=== PATIENT | female | born 1985 | race African-American/Black ===

== ENCOUNTER 2017-03-11 12:23 | Emergency (ER) | payer MEDICAID | END 2017-03-11 14:27 | disposition home or self-care (01) | LOC: D.ER 12:23 | DX: G89.18 Other acute postprocedural pain (principal); R10.9 Unspecified abdominal pain; G40.909 Epilepsy, unspecified, not intractable, without status epilepticus; E11.9 Type 2 diabetes mellitus without complications; Z79.4 Long term (current) use of insulin; F90.9 Attention-deficit hyperactivity disorder, unspecified type ==

== ENCOUNTER 2017-03-30 13:41 | Emergency (ER) | payer SELFPAY | END 2017-03-30 16:43 | disposition home or self-care (01) | LOC: D.ER 13:41 | DX: Z43.3 Encounter for attention to colostomy (principal); G89.29 Other chronic pain; F17.200 Nicotine dependence, unspecified, uncomplicated ==

== ENCOUNTER 2017-04-07 13:26 | Emergency (ER) | payer MEDICAID | END 2017-04-07 16:20 | disposition home or self-care (01) | LOC: D.ER 13:26 | DX: Z76.0 Encounter for issue of repeat prescription (principal); Z93.3 Colostomy status ==

== ENCOUNTER 2017-04-27 13:35 | Emergency (ER) | payer MEDICAID ==
[2017-06-11] MEDS ORDERED: INDERAL10 MG PO (11:08)
[2017-06-23 13:26] VITALS: BMI 14.9
== END 2017-04-27 16:50 | disposition home or self-care (01) ==
LOC: D.ER 13:35
DX: K94.09 Other complications of colostomy (principal); Z98.890 Other specified postprocedural states

== ENCOUNTER 2017-05-31 23:08 | Emergency (ER) | payer MEDICAID ==
[2017-06-01 00:33] LABS: HEMATOCRIT 34.7 % (36.0-48.0); HEMOGLOBIN 11.5 g/dL (12-16); LYMPHOCYTES 18.5 % (15-50); MCH 25.6 pg (26.0-34.0); MCHC 33.1 g/dL (31.0-37.0); MCV 77.1 fL (80.0-100.0); MEAN PLATELET VOLUME 9.4 fL (7.4-10.4); NEUTROPHILS 75.3 % (40-80); PLATELET COUNT 326 10x3/uL (130-400); RDW 16.7 % (11.5-14.5); WBC 8.7 10x3/uL (4.8-10.8)
[2017-06-01 00:48] LABS: ALBUMIN 3.3 g/dL (3.4-5.0); ALKALINE PHOSPHATASE 125 U/L (46-116); ALT (SGPT) 47 U/L (10-68); CALC OSMOLALITY 285 mosm/kg (275-300); CALCIUM 9.3 mg/dL (8.5-10.1); CARBON DIOXIDE 17.6 mmol/L (21.0-32.0); CHLORIDE - SERUM 101 mmol/L (98-107); CREATININE - SERUM 0.9 mg/dL (0.6-1.3); LIPASE 239 U/L (73-393); POTASSIUM - SERUM 3.9 mmol/L (3.5-5.1); PROTEIN - SERUM 7.6 g/dL (6.4-8.2); SODIUM 132 mmol/L (136-145); UREA NITROGEN 17 mg/dL (7-18); eGFR NON AFRICAN AMERICAN 78 mL/min (90-120)
[2017-06-01 00:51] LABS: GLUCOSE 440 mg/dL (74-106)
[2017-06-01 02:35] LABS: APPEARANCE CLEAR (CLEAR); BILIRUBIN NEGATIVE (NEGATIVE); COLOR STRAW (YELLOW); GLUCOSE 1000 mg/dL (NEGATIVE); KETONE NEGATIVE (NEGATIVE); NITRITE NEGATIVE (NEGATIVE); PROTEIN TRACE mg/dL (NEGATIVE); UROBILINOGEN NORMAL (NORMAL)
[2017-06-02] MEDS ORDERED: HYDROCODON-ACE1 EAC9 PO (23:39)
[2017-06-02] MEDS ORDERED: LEVEMIR100 U/M1 SC (23:41)
[2017-06-02] MEDS ORDERED: HUMALOG 30100 UNITS/ SC (23:42)
[2017-06-11] MEDS ORDERED: INDERAL10 MG PO (11:08)
[2017-06-23 13:26] VITALS: BMI 14.9
== END 2017-06-01 08:25 | disposition home or self-care (01) ==
LOC: D.ER 23:08
PROVIDERS: Emergency Medicine
DX: R10.9 Unspecified abdominal pain (principal); E11.65 Type 2 diabetes mellitus with hyperglycemia; Z79.4 Long term (current) use of insulin; K31.84 Gastroparesis; R33.9 Retention of urine, unspecified; F17.200 Nicotine dependence, unspecified, uncomplicated

== ENCOUNTER 2017-06-02 19:20 | Inpatient (IN) | payer MEDICAID ==
[~2017-06-02] VITALS: Ht 160 cm; Wt 46.2 kg
[2017-06-02 20:11] LABS: BASOPHILS 0.2 % (0-2); EOSINOPHILS 0.4 % (0-7); HEMATOCRIT 38.4 % (36.0-48.0); HEMOGLOBIN 12.9 g/dL (12-16); IMMATURE GRANULOCYTES 0.1 % (0-5); LYMPHOCYTES 39.7 % (15-50); MCH 26.3 pg (26.0-34.0); MCHC 33.6 g/dL (31.0-37.0); MCV 78.4 fL (80.0-100.0); MEAN PLATELET VOLUME 9.8 fL (7.4-10.4); MONOCYTES 5.6 % (2-11); PLATELET COUNT 330 10x3/uL (130-400); RDW 16.4 % (11.5-14.5); WBC 8.2 10x3/uL (4.8-10.8)
[2017-06-02 20:28] LABS: ALBUMIN 3.3 g/dL (3.4-5.0); ALKALINE PHOSPHATASE 114 U/L (46-116); BILIRUBIN - TOTAL 0.37 mg/dL (0.2-1.3); CHLORIDE - SERUM 100 mmol/L (98-107); CREATININE - SERUM 0.7 mg/dL (0.6-1.3); PROTEIN - SERUM 7.8 g/dL (6.4-8.2); SODIUM 136 mmol/L (136-145); eGFR NON AFRICAN AMERICAN > 90 mL/min (90-120)
[2017-06-02 20:31] LABS: ALT (SGPT) 29 U/L (10-68); CALC OSMOLALITY 278 mosm/kg (275-300); CARBON DIOXIDE 22.4 mmol/L (21.0-32.0); GLUCOSE 250 mg/dL (74-106); POTASSIUM - SERUM 3.1 mmol/L (3.5-5.1); UREA NITROGEN 10 mg/dL (7-18)
[2017-06-02 21:01] LABS: AMYLASE - SERUM 52 U/L (25-115); LIPASE 141 U/L (73-393)
[2017-06-02 21:04] LABS: APPEARANCE HAZY (CLEAR); BACTERIA MANY /hpf (NONE SEEN); BILIRUBIN NEGATIVE (NEGATIVE); COLOR YELLOW (YELLOW); EPITHELIAL CELLS 0-5 /hpf (0-5); GLUCOSE 100 mg/dL (NEGATIVE); KETONE MODERATE mg/dL (NEGATIVE); NITRITE NEGATIVE (NEGATIVE); PROTEIN 1+ mg/dL (NEGATIVE); SPECIFIC GRAVITY 1.015 (1.005-1.020); UDS - AMPHET NEGATIVE QUAL (NEGATIVE); UDS - BARB NEGATIVE QUAL (NEGATIVE); UDS - BENZO NEGATIVE QUAL (NEGATIVE); UDS - COCAINE POSITIVE QUAL (NEGATIVE); UDS - OPIATE NEGATIVE QUAL (NEGATIVE); UDS - PCP NEGATIVE QUAL (NEGATIVE); UDS - THC NEGATIVE QUAL (NEGATIVE); UROBILINOGEN NORMAL (NORMAL); WHITE CELLS - URINE >50 /hpf (0-5)
[2017-06-02] MEDS ORDERED: HYDROCODON-ACE1 EAC9 PO (23:39)
[2017-06-02] MEDS ORDERED: LEVEMIR100 U/M1 SC (23:41)
[2017-06-02] MEDS ORDERED: HUMALOG 30100 UNITS/ SC (23:42)
--- NOTE | 2017-06-02 23:44 | NUR ---
PT ARRIVED TO ROOM, C/O PAIN IN HER STOMACH. STATES SHE WAS SUPPOSED TO RECEIVE SOMETHING FROM ER BUT DID NOT RECEIVE IT. PT IS AAO. HAS NO S/S OF DISTRESS. BED LOW AND CALL LIGHT IN REACH. WILL CPOC
--- NOTE | 2017-06-03 02:12 | NUR ---
PT ASKS FOR A SODA AND A SANDWINCH. PT STILL C/O STOMACH PAIN. NEW IV PLACED IN LEFT WRIST. 22G. PT DENIES ANY OTHER NEEDS. NO S/S OF DISTRESS. BED LOW AND CALL LIGHT IN REACH. WILL CPOC
--- NOTE | 2017-06-03 04:55 | NUR ---
CALLED TIFFANIE REGARDING PT PAIN. TIFFANIE ONLY GAVE AN ORDER FOR PROTONIX 40MG IV DAILY. WHEN ASKING IF WE ARE GIVING HER ANYTHING FOR PAIN RELIF SHE STATED JUST THE PROTONIX. TIFFANIE DID ALLOW AN ORAL REPLACEMENT OF POTASSIUM BECAUSE PT STATES THE IV POTASSIUM MARQUEZ. YUDY ORDERED
[2017-06-03 05:33] VITALS: BP 106/83; BMI 14.9
[2017-06-03 05:53] VITALS: BP 106/83
[2017-06-03 06:17] LABS: BASOPHILS 0.1 % (0-2); EOSINOPHILS 0.5 % (0-7); HEMATOCRIT 36.8 % (36.0-48.0); HEMOGLOBIN 12.1 g/dL (12-16); IMMATURE GRANULOCYTES 0.3 % (0-5); LYMPHOCYTES 45.3 % (15-50); MCH 25.8 pg (26.0-34.0); MCHC 32.9 g/dL (31.0-37.0); MCV 78.5 fL (80.0-100.0); MONOCYTES 6.1 % (2-11); NEUTROPHILS 47.7 % (40-80); PLATELET COUNT 334 10x3/uL (130-400); RBC 4.69 10x6/uL (4.00-5.40); RDW 16.4 % (11.5-14.5); WBC 7.4 10x3/uL (4.8-10.8)
[2017-06-03 06:29] LABS: CALC OSMOLALITY 275 mosm/kg (275-300); CARBON DIOXIDE 23.4 mmol/L (21.0-32.0); CHLORIDE - SERUM 100 mmol/L (98-107); CREATININE - SERUM 0.7 mg/dL (0.6-1.3); POTASSIUM - SERUM 3.2 mmol/L (3.5-5.1); SODIUM 136 mmol/L (136-145); UREA NITROGEN 10 mg/dL (7-18); eGFR NON AFRICAN AMERICAN > 90 mL/min (90-120)
[2017-06-03 06:34] LABS: GLUCOSE 185 mg/dL (74-106)
[2017-06-03 08:00] VITALS: BP 132/94
--- NOTE | 2017-06-03 09:25 | NUR ---
AM ROUNDS COMPLETED. INTRODUCED MYSELF TO PT PRIMARY RN FOR TODAYS SHIFT. PT A&O BUT VERY RESERVED AND STATES SHES IN A LOT OF PAIN. PROVIDED PT WITH PRN PAIN MEDICATIONS ALONG WITH ZOFRAN FOR NAUSEA. PT IS VERY FRAIL AND STATES SHE HASNT BEEN EATING MUCH R/T ABDOMINAL PAIN BUT HAS BREAKFAST AT BEDSIDE AND STATES SHE WILL TRY TO EAT SOME OR DRINK SOMETHING. PT HAS ALMONTE AND STATES THE ER PUT IT IN ON THE R/T RETENTION HOWEVER NO RECORDS WERE FOUND, UNSURE IF PT NEEDS ALMONTE OR NOT AND UA SHOWED BACTERIA SO WILL DISCUSS WITH PRIMARY ABOUT REMOVAL R/T INFECTION. PT HAS A COLOSTOMY AND STATES SHE HAS HAD IT FOR ABOUT A MONTH R/T "SX ON MY BUTTOCKS" PT WONT GO FURTHER INTO DETAIL AT THIS TIME, WILL PASS ON AND CONTINUE WITH CURRENT PLAN OF CARE. CL IN REACH, BED IN LOWEST, SIDE RAILS X2. WILL CPOC.
--- NOTE | 2017-06-03 10:46 | NUR ---
PT STATES PAIN RELIEVED WITH PRN PAIN MED AND ZOFRAN FOR NAUSEA. PT NOW REQUESTING REAL FOOD. DISCUSSED WITH PRIMARY AND DIET UPDATED TO DIABETIC REGULAR. WILL SEE HOW SHE DOES.
--- NOTE | 2017-06-03 11:56 | NUR ---
FSBS 186 PT REC'D 4 UNITS PER SS INSULIN. PT PREVIOUSLY STATED NO BOWEL MOVEMENT FOR 4 DAYS WITH HER COLOSTOMY BUT THEN STATED ITS BEEN LIQUID NOT FORMED BUT SHES HAD A LITTLE, REGARDLESS PT FEELS CONSTIPATED AND HER ABDOMEN IS DISTENDED PER HER NORMAL AND VERY PAINFUL. PROVIDED PT WITH SUPPOSITORY THROUGH HER STOMA ORDERED ALONG WITH MIRALAX. PTS STOMA TO Q IS A VERY LIGHT PINK IN COLOR NOT A BEEFY RED, SHE DENIES PAIN AT ACTUAL SITE BUT IT SHOULD BE A BEEFY RED, WILL CONTINUE TO MONITER IT. BLADDER TRAINING INITIATED AND TEACHING PROVIDED TO PT. PT VERBALIZED UNDERSTANDING. PT NOW RESTING SITTING UP IN BED EATING LUNCH. CL IN REACH. WILL CPOC.
[2017-06-03 13:20] VITALS: BP 97/73
--- NOTE | 2017-06-03 14:57 | NUR ---
PT REQUESTING PRN PAIN MEDICATION AND WAS PROVIDED WITH IT. DIETARY CALLED REGARDING PT REQUESTING MORE FOOD APPARENTLY SHE ATE 3 LUNCH TRAYS BUT ON DIABETIC DIET, I GAVE VERBAL OKAY R/T PT BEING HOMELESS AND VERY MALNOURISHED SHE WEIGHS AROUND 80 POUNDS AND IS SKIN AND BONES. WILL MONITER GLUCOSE WITH MEAL CHOOSINGS. PTS BLADDER TRAINING NOT GOING WELL AND CATHETER APPEARS TO BE FALLING OUT A LOT OF THE TUBING IS SHOWING, DEFLATED THE BALLOON AND CATHETER FELL OUT. WILL MONITER TO SEE IF SHE WILL REQUIRE A NEW ONE OR NOT. PT DOES HAVE A UTI SO WE WILL TRY TO KEEP IT OUT LONG NO RETENTION NOTED. PT WANTING TO TAKE SHOWER, WRAPPED HER PIV AND ASSISTED HER INTO SHOWER. PT VOICED THANKS AND DENIES ANY FURTHER NEEDS AT THIS TIME. WILL CTM.
--- NOTE | 2017-06-03 15:42 | NUR ---
PT FINISHED WITH SHOWER AND VOICED THANKS AND STATES SHE IS FEELING MUCH BETTER. CHANGED OUT COLOSTOMY AND PROVIDED WITH NEW SUPPLIES, PT HAS HAD GOOD RETURN FROM SUPPOSITORY AND WILL NOT REQUIRE A REPEAT. EMPTIED OVER 200ML OF BROWN LIQUID STOOL FROM BAG. PT SITTING UP IN BED RESTING QUIETLY AND DENIES ANY FURTHER NEEDS AT THIS TIME. CL IN REACH, BED IN LOWEST, SIDE RAILS X2, WILL CPOC. NO SCDS APPLIED R/T PT BEING AMBULATORY AND REFUSED NEED/USAGE.
--- NOTE | 2017-06-03 16:19 | NUR ---
FSBS 386 PT REC'D 16 UNITS OF INSULIN PER SS. THIS WAS EXPECTED TO BE HIGHER SHE HAS EATEN QUITE A BIT TODAY BUT NEEDED THE NOURISHMENT. PT SITTING UP IN BED WAITING ON DINNER. NO FURTHER NEEDS AT THIS TIME. WILL CTM.
--- NOTE | 2017-06-03 16:20 | NUR ---
FSBS 346 PT REC'D 12 UNITS OF INSULIN PER SS. THIS WAS EXPECTED TO BE HIGHER SHE HAS EATEN QUITE A BIT TODAY BUT NEEDED THE NOURISHMENT. PT SITTING UP IN BED WAITING ON DINNER. NO FURTHER NEEDS AT THIS TIME. WILL CTM.
[2017-06-03 16:47] VITALS: BP 130/84
--- NOTE | 2017-06-03 17:45 | NUR ---
PT STILL UNABLE TO VOID AND STATES SHE DOESNT FEEL ANY PRESSURE OR THAT SHE HAS ANY BUILD UP PT HAS DRANK A LOT OF FLUIDS TODAY THOUGH AND SHOULD HAVE SOMETHING BY NOW. BLADDER SCAN PERFORMED AND PT HAS OVER 500ML IN HER BLADDER AND WILL NEED ANOTHER ALMONTE PLACED. 16 FR ALMONTE PLACED USING STERILE TECHNIQUE, PT DOES HAVE A SWOLLEN LABIA AND URETHRA BUT NO DIFFICULTY NOTED UPON INSERTION. NEW STERILE UA AND CULTURE ORDERED AND COLLECTED AND SENT TO LAB. PT HAD ISSUE VOIDING LAST WEEK AND WHEN SHE WENT TO ER STATES SHE WAS FULL AND HAD THE ORIGINAL ALMONTE PLACED R/T RETENTION. SOURCE OF BLOCKAGE OR REASON UNKNOWN PT MAY BENEFIT FROM UROLOGIST CONSULT OR KIDNEY ULTRASOUND, WILL PASS OFF IN REPORT AND DISCUSS WITH PRIMARY DOCTOR. PT VERBALIZED UNDERSTANDING AND DENIES ANY FURTHER NEEDS AT THIS TIME. CL IN REACH, BED IN LOWEST, SIDE RAILS X2. WILL CPOC.
[2017-06-03 17:53] LABS: APPEARANCE HAZY (CLEAR); BILIRUBIN NEGATIVE (NEGATIVE); COLOR YELLOW (YELLOW); GLUCOSE 1000 mg/dL (NEGATIVE); KETONE NEGATIVE (NEGATIVE); NITRITE POSITIVE (NEGATIVE); PROTEIN TRACE mg/dL (NEGATIVE); SPECIFIC GRAVITY 1.015 (1.005-1.020); UROBILINOGEN NORMAL (NORMAL)
[2017-06-03 17:54] LABS: WHITE CELLS - URINE >50 /hpf (0-5)
[2017-06-03 17:55] LABS: BACTERIA FEW /hpf (NONE SEEN); YEAST >1+ /hpf (NONE SEEN)
--- NOTE | 2017-06-03 19:00 | NUR ---
REPORT RECIEVED, WILL ASSESS AND MONITOR PT.
--- NOTE | 2017-06-03 19:00 | NUR ---
SHIFT ASSESSMENT COMPLETE, PLEASE SEE FLOW SHEETS FOR DETAILS. RR EVEN AND UNLABORED, CLEAR LUNGS SOUNDS HEARD. S1S2 HEARD, PPP. BS ACTIVE X3, COLOSTOLY IN PLACE AND DRAINING WELL. ALMONTE IN PLACE AND DRAINING VIA GRAVITY. PT C/O PAIN IN ABD 10/10, PRESSURE, ESPLAINED SHE WOULD HAVE TO WAIT UNTIL CLOSER TO 9PM FOR HER PAIN MEDS, SHE WAS OKAY WITH THIS. PT IS VERY THIN. DENIES ANY OTHER NEEDS ATT. BED LOW AND LOCKED, CALL LIGHT IN REACH. WILL CPOC.
[2017-06-03 20:35] VITALS: BP 117/76
--- NOTE | 2017-06-03 21:39 | NUR ---
PAGED AND SPOKE WITH TIFFANIE GARCIA APN, RECIEVED ORDERS. WILL CPOC.
[2017-06-04 00:50] VITALS: BP 110/73
--- NOTE | 2017-06-04 03:19 | NUR ---
RESTING, NO S&S ACUTE DISTRESS NOTED. BED LOW AND LOCKED, CALL LIGHT IN REACH. WILL CPOC.
[2017-06-04 05:07] LABS: BASOPHILS 0.1 % (0-2); EOSINOPHILS 1.3 % (0-7); HEMATOCRIT 33.7 % (36.0-48.0); IMMATURE GRANULOCYTES 0.3 % (0-5); LYMPHOCYTES 54.1 % (15-50); MCH 25.9 pg (26.0-34.0); MCHC 32.6 g/dL (31.0-37.0); MCV 79.5 fL (80.0-100.0); MEAN PLATELET VOLUME 9.9 fL (7.4-10.4); MONOCYTES 3.7 % (2-11); NEUTROPHILS 40.5 % (40-80); PLATELET COUNT 286 10x3/uL (130-400); RBC 4.24 10x6/uL (4.00-5.40); RDW 15.9 % (11.5-14.5); WBC 7.9 10x3/uL (4.8-10.8)
[2017-06-04 05:12] VITALS: BP 117/88
[2017-06-04 05:21] LABS: ALBUMIN 2.7 g/dL (3.4-5.0); ANION GAP 11.8 mmol/L (8-16); BILIRUBIN - TOTAL 0.1 mg/dL (0.2-1.3); CALCIUM 8.6 mg/dL (8.5-10.1); CARBON DIOXIDE 24.5 mmol/L (21.0-32.0); POTASSIUM - SERUM 3.3 mmol/L (3.5-5.1); PROTEIN - SERUM 6.5 g/dL (6.4-8.2)
--- NOTE | 2017-06-04 07:52 | NUR ---
INTRODUCED SELF TO PT. PT RESTING IN BED, DENIES NEEDS. WCTM.
[2017-06-04 08:00] VITALS: BP 103/67
[2017-06-04 11:48] VITALS: BP 113/78
--- NOTE | 2017-06-04 12:03 | NUR ---
PT REQ AND REC'D PRN PAIN MEDICATION. WCTM.
[2017-06-04 13:12] VITALS: Ht 160 cm; Wt 46.2 kg
[2017-06-04 16:15] VITALS: BP 118/85
--- NOTE | 2017-06-04 16:52 | NUR ---
PT REQ AND REC'D PRN PAIN MEDICATION. WCTM.
[2017-06-04 21:38] VITALS: BP 114/86
--- NOTE | 2017-06-05 00:27 | NUR ---
PT IN BED RESTING QUIETLY. BED IN LOW POSITION, CALL LIGHT WITHIN REACH. WILL CPOC.
[2017-06-05 01:53] VITALS: BP 117/84
[2017-06-05 04:59] VITALS: BP 107/70
--- NOTE | 2017-06-05 05:13 | NUR ---
PATIENTS IV INFILTRATED, I STUCK HER TWICE WITHOUT SUCCESS. CHARGE NURSE WAS NOTIFIED AND A NURSE FROM [facility] WAS ASKED TO COME TRY.
[2017-06-05 06:12] LABS: BASOPHILS 0.1 % (0-2); EOSINOPHILS 1.3 % (0-7); HEMATOCRIT 32.3 % (36.0-48.0); HEMOGLOBIN 10.2 g/dL (12-16); IMMATURE GRANULOCYTES 0.2 % (0-5); LYMPHOCYTES 42.7 % (15-50); MCH 25.6 pg (26.0-34.0); MCHC 31.6 g/dL (31.0-37.0); MCV 81.2 fL (80.0-100.0); MEAN PLATELET VOLUME 10.3 fL (7.4-10.4); MONOCYTES 3.8 % (2-11); NEUTROPHILS 51.9 % (40-80); PLATELET COUNT 258 10x3/uL (130-400); RBC 3.98 10x6/uL (4.00-5.40); RDW 16.3 % (11.5-14.5); WBC 8.4 10x3/uL (4.8-10.8)
[2017-06-05 06:54] LABS: ALBUMIN 2.8 g/dL (3.4-5.0); ALKALINE PHOSPHATASE 105 U/L (46-116); ALT (SGPT) 29 U/L (10-68); CALCIUM 7.9 mg/dL (8.5-10.1); CHLORIDE - SERUM 107 mmol/L (98-107); POTASSIUM - SERUM 3.5 mmol/L (3.5-5.1); PROTEIN - SERUM 6.3 g/dL (6.4-8.2); SODIUM 135 mmol/L (136-145)
[2017-06-05 06:56] LABS: BILIRUBIN - TOTAL 0.07 mg/dL (0.2-1.3); CALC OSMOLALITY 269 mosm/kg (275-300); CARBON DIOXIDE 15.2 mmol/L (21.0-32.0); CREATININE - SERUM 0.5 mg/dL (0.6-1.3); GLUCOSE 136 mg/dL (74-106); UREA NITROGEN 8 mg/dL (7-18); eGFR NON AFRICAN AMERICAN > 90 mL/min (90-120)
--- NOTE | 2017-06-05 07:20 | NUR ---
RECIEVED REPORT ON PATIENT, PATIENT IS RESTING AT THIS TIME. CHEST RISES AND FALLS EQUALLY, NAD NOTED. BED IS LOW AND LOCKED. CALL LIGHT IN REACH. WILL CONT TO MONITOR PATIENT. CPOC
--- NOTE | 2017-06-05 08:06 | NUR ---
NORCO GIVEN FOR PAIN 10/10 IN ABD. WILL CONTINUE TO MONITOR. CPOC
[2017-06-05 08:35] VITALS: BP 115/94
--- NOTE | 2017-06-05 09:15 | NUR ---
PATIENT GIVEN MORNING MEDICATIONS. NO ISSUES. DENIES ANY NEEDS. CPOC
--- NOTE | 2017-06-05 10:29 | NUR ---
PATIENT AMBULATING HALLWAY AT THIS TIME. DENIES ANY NEEDS. CPOC
--- NOTE | 2017-06-05 11:00 | NUR ---
SPOKE WITH TIFFANIE GARCIA REGARDING PATIENT IV BEING OUT, SHE STATED IT WAS OKAY TO LEAVE OUT, THAT PATIENT WILL GO HOME TOMORROW ON OMNICEF. CPOC
[2017-06-05 12:12] VITALS: BP 119/83
--- NOTE | 2017-06-05 14:22 | NUR ---
PATIENT GIVEN NORCO FOR PAIN 9/10 IN ABDOMEN. CPOC
--- NOTE | 2017-06-05 14:46 | NUR ---
TIFFANIE GARCIA, ORDERED TO TAKE ALMONTE OUT, EXPLAINED THAT PATIENT STILL DOES NOT HAVE CONTROL OF BLADDER OR URGE TO URINATE. WILL CONT TO BLADDER TRAIN AND TAKE OUT LATER THIS AFTERNOON PER TIFFANIE GARCIA
--- NOTE | 2017-06-05 16:03 | NUR ---
PATIENT AMBULATING HALLWAY AT THIS TIME. CPOC
--- NOTE | 2017-06-05 16:35 | NUR ---
FSBS 296, 10 UNITS OF HUMALOG GIVEN. CPOC
[2017-06-05 16:36] VITALS: BP 119/83
--- NOTE | 2017-06-05 16:44 | NUR ---
HAVE CONTINUED BLADDER TRAINING ORDERED, INFORMED PATIENT I AM GOING TO PULL HER CATHETER. INSTRUCTED HER THE IMPORTANCE OF VOIDING AFTER A CATHETER AND THAT SHE NEEDS TO NOTIFIY US WHEN SHE NEEDS TO VOID. SPOKE WITH PATIENT REGARDING ON IF SHE HAS HAD THESE ISSUES IN THE PAST OR ANY PROBLEMS VOIDING, AND SHE STATED THAT BEFORE SHE CAME IN, SHE NOTICED SHE DIDNT VOID MUCH, AND WHEN SHE DID THAT IT WOULD JUST BE A LITTLE BIT. SHE SAID THAT SHE WOULD HAVE TO STRAIN AND THEN SHE COULD GET MORE OUT. SHE THEN TOLD ME THAT IS WHEN SHE STARTED HAVING THE ABDOMEN PAIN AND CAME TO THE ER AND THAT'S WHERE THEY PUT A CATHETER IN HER. SHE STATED A FEW DAYS AGO, THEY TOOK THE CATHETER OUT AND THAT SHE HAD A ISSUE WITH RETAINING AND THAT SHE WAS NOT ABLE TO VOID, AND THATS WHY THEY PUT THE CATHETER BACK IN, INFORMED PATIENT THAT WE HAVE TO GET IT OUT AGAIN, AND SEE IF SHE CAN VOID THIS TIME, OR IF THERE IS A PROBLEM WITH RETENTION. STATES UNDERSTANDING. ALMONTE CATHETER DC WITH NO ISSUES. WILL CONT TO MONITOR. CPOC
--- NOTE | 2017-06-05 18:33 | NUR ---
INFORMED PATIENT, MY SHIFT IS ENDING. PATIENT DENIES ANY NEEDS AT THIS TIME. CPOC
--- NOTE | 2017-06-05 19:57 | NUR ---
PATIENTS ALMONTE WAS REMOVED TODAY ON DAY SHIFT, PATIENT REPORTS NO URINE OUTPUT SINCE THE REMOVAL. BLADDER SCAN DONE AND SHOWS 50 ML OF URINE IN BLADDER. I TOLD HER TO NOTIFY ME OF ANY URINE OUTPUT. CALL LIGHT IS IN REACH, WILL CONTINUE TO MONITOR.
[2017-06-05 21:15] VITALS: BP 131/99
--- NOTE | 2017-06-06 | NUR ---
PT RESTING WELL, NO CHANGES NOTED. ASSESSMENTS UNCHANGED. CALL LIGHT WITHIN REACH. WILL MONITOR.
[2017-06-06 00:50] VITALS: BP 108/74
[2017-06-06 04:58] VITALS: BP 136/102
--- NOTE | 2017-06-06 05:50 | NUR ---
PATIENT DENIES URINE OUTPUT ON MY SHIFT. BLADDER SCAN SHOWS NO URINE IN BLADDER AT THIS TIME. CALL LIGHT IN REACH.
[2017-06-06 08:50] VITALS: BP 144/104
--- NOTE | 2017-06-06 09:30 | NUR ---
MEDICATED FOR C/O OSEI. RESTS WITHOUT FURTHER C/O. CALL LIGHT IN REACH. WILL CONT. HE OF CARE.
--- NOTE | 2017-06-06 10:39 | NUR ---
C/O ABD PAIN. BLADDER SCAN DONE WITH 1000CC URINE RETENTION. WILL REINSERT FOLEU\Y AFTER SHOWER.
--- NOTE | 2017-06-06 10:40 | NUR ---
PT C/O OF HER ABDOMEN BEING VERY DISTENDED AND PAINFUL. PT ALSO REPORTS SHE HASNT URINATED SINCE AFTER ALMONTE WAS REMOVED YESTERDAY. BLADDER SCAN COMPLETED AND PT SHOWED OVER 1000ML IN BLADDER. PT WANTS TO SHOWER AND THEN ALMONTE WILL BE PLACED. DISCUSSED WITH PTS PRIMARY NURSE.
--- NOTE | 2017-06-06 11:10 | NUR ---
ALMONTE CATH 167 FR INSRTED WITH 10CC BULB. 1100CC CLEAR URINE OP NOTED. WILL CONT. TO MONITOR.
[2017-06-06 12:20] VITALS: BP 146/95
[2017-06-06 16:39] VITALS: BP 157/111
--- NOTE | 2017-06-06 19:26 | NUR ---
PT OUT FOR A WALK WITH SISTER. NAME AND DATE PLACED ON BOARD. WILL CHECK WITH PT AGAIN WHEN PT BACK IN ROOM
[2017-06-06 20:00] VITALS: BP 132/90
--- NOTE | 2017-06-06 20:20 | NUR ---
PT LAYING IN BED RESTING ON RIGHT SIDE. PT TALKS ABOUT HOW HER SISTER CAME DOWN FROM [place] AND SHE IS HAPPY SHE GOT TO SEE HER. PT EMPTIED COLOSTOMY BAG. 400ML THAN EMPTIED AGAIN WHILE IN ROOM. 225ML. PT DENIES ANY NEEDS AT THIS TIME. WILL CPOC
[2017-06-07] VITALS: BP 137/99
--- NOTE | 2017-06-07 03:43 | NUR ---
PT ASLEEP. AROUSES WHEN DOOR OPENS. DENIES ANY NEEDS. NO S/S OF DISTRESS WILL CPOC
[2017-06-07 04:00] VITALS: BP 120/82
[2017-06-07 06:29] LABS: CALC OSMOLALITY 272 mosm/kg (275-300); CALCIUM 8.2 mg/dL (8.5-10.1); CARBON DIOXIDE 18.1 mmol/L (21.0-32.0); CHLORIDE - SERUM 104 mmol/L (98-107); CREATININE - SERUM 0.6 mg/dL (0.6-1.3); GLUCOSE 173 mg/dL (74-106); MAGNESIUM - SERUM 1.5 mg/dL (1.8-2.4); POTASSIUM - SERUM 3.4 mmol/L (3.5-5.1); SODIUM 135 mmol/L (136-145); UREA NITROGEN 10 mg/dL (7-18); eGFR NON AFRICAN AMERICAN > 90 mL/min (90-120)
--- NOTE | 2017-06-07 07:15 | NUR ---
RECIEVED REPORT ON PATIENT, PATIENT IS SLEEPING AT THIS TIME, NAD NOTED. CHEST RISES AND FALLS EQUALLY. PATIENT HAS A ALMONTE BAG NOTED, DRAINING YELLOW URINE. PATIENT AROUSES TO VOICE. DENIES ANY NEEDS. WILL CONT TO MONITOR PATIENT. CPOC
[2017-06-07 08:27] VITALS: BP 102/71
--- NOTE | 2017-06-07 09:30 | NUR ---
MORNING MEDICATIONS GIVEN, NO ISSUES. CPOC
--- NOTE | 2017-06-07 10:46 | NUR ---
NORCO GIVEN FOR PAIN 10/10 IN STOMACH. WILL CONT TO MONITOR
--- NOTE | 2017-06-07 11:31 | NUR ---
FSBS 222, 8 UNITS OF HUMALOG GIVEN. CPOC
[2017-06-07 11:57] VITALS: BP 136/99
--- NOTE | 2017-06-07 13:00 | NUR ---
PATIENT EATING LUNCH, PATIENT IS ON HER SECOND LUNCH, STATES SHE JUST GETS HUNGRY ALL THE TIME. WILL CONT TO MONITOR PATIENT. CPOC
--- NOTE | 2017-06-07 14:00 | NUR ---
PATIENT IS RESTING AT THIS TIME, NAD NOTED. PATIENT AROUSES TO VOICE. DENIES ANY NEEDS. CPOC
--- NOTE | 2017-06-07 16:45 | NUR ---
FSBS 299, 10 UNITS OF HUMALOG GIVEN. CPOC
--- NOTE | 2017-06-07 17:18 | NUR ---
PATIENT EATING DINNER, STATES PAIN IS GETTING BETTER. 10/19. WILL CONT TO MONITOR. CPOC
--- NOTE | 2017-06-07 18:44 | NUR ---
PATIENT INFORMED I WAS LEAVING, TIME FOR SWITCHING SHIFTS. PATIENT NEEDS MET. DENIES ANY OTHER NEEDS. CPOC
--- NOTE | 2017-06-07 20:00 | NUR ---
PT IS RESTING QUIETLY IN BED WATCHING TV. ALERT AND ORIENTED X 3. DENIES ACUTE DISCOMFORT AT THIS TIME. ALMONTE CATH IS PATENT AND DRAINING TO A GRAVITY BAG. COLOSTOMY APPLIANCE IS CDI. SR'S ARE UP X 2 IN BED. CALL LIGHT AND BEDSIDE TABLE ARE WITHIN EASY REACH.
[2017-06-07 20:33] VITALS: BP 115/82
--- NOTE | 2017-06-07 22:45 | NUR ---
PT IS RESTING IN BED WATCHING TV. NO ACUTE DISTRESS NOTED.
--- NOTE | 2017-06-08 00:34 | NUR ---
RESTING IN BED WITH EYES CLOSED.
--- NOTE | 2017-06-08 02:32 | NUR ---
PT RESTING IN BED WITH EYES OPEN. NO ACUTE DISTRESS NOTED.
[2017-06-08 03:47] VITALS: BP 144/82
[2017-06-08 04:56] LABS: CALC OSMOLALITY 275 mosm/kg (275-300); CALCIUM 8.6 mg/dL (8.5-10.1); CARBON DIOXIDE 19.5 mmol/L (21.0-32.0); CHLORIDE - SERUM 105 mmol/L (98-107); CREATININE - SERUM 0.6 mg/dL (0.6-1.3); GLUCOSE 151 mg/dL (74-106); POTASSIUM - SERUM 3.7 mmol/L (3.5-5.1); SODIUM 136 mmol/L (136-145); UREA NITROGEN 15 mg/dL (7-18); eGFR NON AFRICAN AMERICAN > 90 mL/min (90-120)
[2017-06-08 08:00] VITALS: BP 126/94
--- NOTE | 2017-06-08 09:30 | NUR ---
MORNING MEDICATIONS GIVEN, NO ISSUES. NORCO GIVEN FOR PAIN. WILL CONT TO MONITOR. CPOC
--- NOTE | 2017-06-08 11:40 | NUR ---
FSBS 259, 10 UNITS OF HUMALOG GIVEN. CPOC
[2017-06-08 12:00] VITALS: BP 106/74
--- NOTE | 2017-06-08 15:49 | NUR ---
PATIENT GIVEN NORCO FOR PAIN 8/10 IN HEAD. DENIES ANY OTHER COMPLAINTS. WILL CONT TO MONITOR. CPOC
[2017-06-08 16:00] VITALS: BP 112/67
--- NOTE | 2017-06-08 17:10 | NUR ---
FSBS 322, 12 UNITS OF HUMALOG GIVEN. PATIENT DENIES ANY OTHER NEEDS. CPOC
--- NOTE | 2017-06-08 18:48 | NUR ---
PATIENT INFORMED I WAS LEAVING, TIME FOR SWITCHING SHIFTS. PATIENT NEEDS MET. DENIES ANY OTHER NEEDS. CPOC
[2017-06-08 21:38] VITALS: BP 126/88
--- NOTE | 2017-06-09 00:05 | NUR ---
RECEIVED IN BEDROOM. RESTING IN BED WITH EYES OPEN. ALMONTE INTACT. COLOSTOMY INTACT. STATES PAIN OF 9 IN ABDOMINAL AREA. CALL LIGHT IN REACH
[2017-06-09 00:37] VITALS: BP 117/86
--- NOTE | 2017-06-09 03:43 | NUR ---
RESTING IN BED WITH EYES CLOSED. NO SIGNS OF DISTRESS. CALL LIGHT IN REACH
[2017-06-09 04:53] VITALS: BP 121/81
[2017-06-09 05:38] LABS: CALC OSMOLALITY 276 mosm/kg (275-300); CALCIUM 8.8 mg/dL (8.5-10.1); CARBON DIOXIDE 21.7 mmol/L (21.0-32.0); CHLORIDE - SERUM 103 mmol/L (98-107); CREATININE - SERUM 0.5 mg/dL (0.6-1.3); GLUCOSE 191 mg/dL (74-106); POTASSIUM - SERUM 4.2 mmol/L (3.5-5.1); SODIUM 135 mmol/L (136-145); UREA NITROGEN 17 mg/dL (7-18); eGFR NON AFRICAN AMERICAN > 90 mL/min (90-120)
--- NOTE | 2017-06-09 07:15 | NUR ---
RECIVED REPORT ON PATIENT,PATIENT IS ALERT AND ORIENTED AT THIS TIME, WATCHING TV. DENIES ANY NEEDS AT THIS TIME. PAIN IS 8/10 IN STOMACH, WILL GIVE NORCO WHEN DUE. PATIENT DENIES ANY OTHER NEEDS AT THIS TIME. CPOC
[2017-06-09 08:17] VITALS: BP 114/80
--- NOTE | 2017-06-09 09:45 | NUR ---
MORNING MEDICATION GIVEN. NO ISSUES. CPOC
--- NOTE | 2017-06-09 10:51 | NUR ---
Nutrition follow-up: Diet: ADA consistent CHO PO intake 100% of all meals, snacks. Pt is calling the kitchen to send extra food. Pt eating up to 6 meals a day + snacks inbetween. Pt eating bags of vanilla wafers. RDDhara spoke with pt re: will only send an appropriate serving of vanilla wafers from now on due to glucose still running high. Pt offered sugar free options instead. Wt: 99# RDN following.
[2017-06-09 11:22] VITALS: BP 114/79
--- NOTE | 2017-06-09 12:30 | NUR ---
PATIENT EATING LUNCH. DENIES ANY NEEDS. CPOC
--- NOTE | 2017-06-09 13:33 | NUR ---
SLEEPING AT PRESENT.
[2017-06-09 16:04] VITALS: BP 118/82
--- NOTE | 2017-06-09 19:24 | NUR ---
PT IN BED RESTING QUIETLY. REQUESTED PRN PAIN MEDICATION. INFORMED PT THAT SHE CANT HAVE IT YET BUT THAT I WILL BRING IT TO HER SOON SHE CAN HAVE IT. SHE STATED THIS WAS OKAY. DENIED ANY OTHER NEEDS AT THIS TIME. BREATHING EVEN AND UNLABORED. BED IN LOW POSITION, CALL LIGHT WITHIN REACH. WILL CTM.
[2017-06-09 20:27] VITALS: BP 123/86
[2017-06-10 01:58] VITALS: BP 129/90
[2017-06-10 05:10] VITALS: BP 120/80
[2017-06-10 06:08] LABS: CALC OSMOLALITY 274 mosm/kg (275-300); CHLORIDE - SERUM 102 mmol/L (98-107); CREATININE - SERUM 0.5 mg/dL (0.6-1.3); GLUCOSE 161 mg/dL (74-106); POTASSIUM - SERUM 4.3 mmol/L (3.5-5.1); SODIUM 135 mmol/L (136-145); UREA NITROGEN 18 mg/dL (7-18); eGFR NON AFRICAN AMERICAN > 90 mL/min (90-120)
--- NOTE | 2017-06-10 06:20 | NUR ---
FSBS 189. 4 UNITS HUMALOG GIVEN PER SLIDING SCALE. BREATHING EVEN AND UNLABORED. DENIES ANY OTHER NEEDS AT THIS TIME. BED IN LOW POSITION, CALL LIGHT WITHIN REACH. WILL CTM
[2017-06-10 07:42] VITALS: BP 124/81
--- NOTE | 2017-06-10 08:00 | NUR ---
REC'D IN BED AWAKE AND ALERT. RESP EVEN AND UNLABORED WITH NO DISTRESS NOTED. CAN EXPRESS NEEDS AND WANTS. NO C/O PAIN OR DISCOMFORT NOTED OR VOICED. ASSESSMENT COMPLETED. C/L IN REACH AT BEDSIDE.
--- NOTE | 2017-06-10 09:29 | NUR ---
PT WAS RESITED TO RIGHT FOREARM X 1 ATTEMPT WHICH WAS SUCCESSFUL.
--- NOTE | 2017-06-10 11:13 | NUR ---
PT C/O SBD PAIN WAS MEDICATED WITH NORCO PER ORDRS. C/L IN REACH AT BESIDE.
[2017-06-10 12:00] VITALS: BP 125/90
[2017-06-10] MEDS ORDERED: HYDROCODONE-APA1 TAB PO (14:15)
[2017-06-10] MEDS ORDERED: LEVAQUIN500 MG PO (14:17)
[2017-06-10 15:39] VITALS: BP 125/96
--- NOTE | 2017-06-10 16:22 | NUR ---
Patient Name: SOFIA FONTENOT Admission Status: ER Accout number: [id number] Admission Date: 06-02-2017 : 1985 Admission Diagnosis:TYPE 2 DIABETES MELLITUS WITH HYPERGLYCEMIA Attending: TWAN KAMARA Current LOS: 8 Anticipated DC Date: 06-10-2017 Planned Disposition: Home Primary Insurance: [place]ICAID [place] Discharge Planning Comments: * Is the patient Alert and Oriented? Yes 0 * How many steps to enter\exit or inside your home? 2 0 * PCP NONE 0 * Pharmacy [facility] 0 * Preadmission Environment Home with Family 0 * ADLs Independent 0 * Equipment Glucometer Ostomy Supplies 0 * Other Equipment [facility] 0 * List name and contact numbers for known caregivers / representatives who currently or will assist patient after discharge: KAPIL IVEY, GRANDMOTHER, DENNIS LEPE, FATHER, 0 * Community resources currently utilized None 0 * Please name any agencies selected above. NONE 0 * Additional services required to return to the preadmission environment? No 0 * Can the patient safely return to the preadmission environment? Yes 0 * Has this patient been hospitalized within the prior 30 days at any hospital? No 0 CM RECEIVED ORDERS FOR CATH SUPPLIES, MET WITH PT IN ROOM TO DISCUSS DISCHARGE PLANNING AND NEEDS. PT REPORTS LIVING AT HOME INDEPENDENTLY WITH HER GRANDMOTHER; UPDATED ADDRESS AND EMERGENCY CONTACTS OBTAINED. PT HAS GLUCOMETER AND OSTOMY SUPPLIES FROM [facility]. PT HAS A WALKER BUT LOST IT WHILE HOMELESS, SHE DOES NOT KNOW IF IT HAS BEEN 5 YEARS SINCE GETTING IT FROM MEDICAID BUT WANTS ANOTHER ONE IF THE DOCTOR WILL ORDER IT. PT HAS NO OUTSIDE SERVICES ASSISTING IN THE HOME. CM DISCUSSED AVAILABILITY OF HOME HEALTH, REHAB SERVICES AND MEDICAL EQUIPMENT. PT DENIES DISCHARGE NEEDS OTHER THAN WALKER AND CATHETERS, REPORTS HER GRANDMA WILL PICK HER UP FOR DISCHARGE HOME TODAY. CM REFERRED PT TO [facility] DEPART[facility] OF HUMAN SERVICES FOR ASSISTANCE IN LOCATING A PRIMARY CARE DOCTOR. CM CALLED [facility], , SPOKE TO ROBBIE, VERIFIED THEY PROVIDE SELF CATH SUPPLIES, FAXED ORDERS TO [facility] AT [phone]. ROBBIE STATES PT CAN MAGNETIC HEALER FIRST SUPPLIES TOMORROW, THEY WILL MAIL ORDER NEXT MONTH TO HER HOME. CM NOTIFIED PT IN ROOM, PT REPORTS ABILITY TO MAGNETIC HEALER SUPPLIES TOMORROW, DENIES FURHTER NEEDS. Stock Car Driver: Kirill Ball
--- NOTE | 2017-06-10 16:57 | NUR ---
PT WAS EDUCATED AT THIS TIME WELL FAMILY MEMBER ON SELF CATHERIZATION. BOTH PT AND FAMILY MEMBER VOICED UNDERSTANDING. PT WAS RELEASED AT THIS TIME WITH ALL PERSONAL BELONGS. RX IH HAND FOR NORCO . NO C/O NOTED UPON DEPARTURE. C/L IN REACH AT BEDSIDE.
[2017-06-11] MEDS ORDERED: INDERAL10 MG PO (11:08)
== END 2017-06-10 17:13 | disposition home or self-care (01) | DRG 638 ==
LOC: D.ER 19:20 → D.M2 22:02
PROVIDERS: Emergency Medicine; Nurse Practitioner Family; ADMIT Family Medicine Adult Medicine
DX: E11.65 Type 2 diabetes mellitus with hyperglycemia (principal); N39.0 Urinary tract infection, site not specified; Z79.4 Long term (current) use of insulin; B96.20 Unspecified Escherichia coli [E. coli] as the cause of diseases classified elsewhere; E11.40 Type 2 diabetes mellitus with diabetic neuropathy, unspecified; R09.02 Hypoxemia; E87.6 Hypokalemia; E83.42 Hypomagnesemia

== ENCOUNTER 2017-06-14 13:09 | Emergency (ER) | payer MEDICAID ==
[2017-06-04 13:12] VITALS: BMI 16.3
[~2017-06-14 13:09] MED LIST: HUMALOG 30100 UNITS/ SC; HYDROCODON-ACE1 EAC9 PO; HYDROCODONE-APA1 TAB PO; INDERAL10 MG PO; LEVAQUIN500 MG PO; LEVEMIR100 U/M1 SC
--- NOTE | 2017-06-14 13:51 | NUR ---
ER CM: MARIELY contacted Joyce with [facility] to inquire if patient has an order for self-caths. Joyce states they have 15 available for patient to picker/puller, but she has not contacted them, or been by. CM met with patient regarding request for catheters and ostomy bags. Patient states she still has not set up with a PCP. Provided names and phone numbers of MD's and their location to the hospital. Patient assures CM that she will call for an appointment susan and also go by to picker/puller her catheters and ostomy bags in the morning because "I have a lot of running around to do, I only need 2 colostomy bags today." [facility] DME: [facility], ostomy, scatheter supplies. Glucometer. Emergency Contacts: Kendra Levin (grandmother)[phone], Aneesh Davis (father) [phone]. Nancy Hernandez RN, CM
== END 2017-06-14 15:25 | disposition home or self-care (01) ==
LOC: D.ER 13:09
DX: N31.9 Neuromuscular dysfunction of bladder, unspecified (principal); Z93.3 Colostomy status

== ENCOUNTER 2017-06-15 16:13 | Emergency (ER) | payer MEDICAID ==
[2017-06-04 13:12] VITALS: BMI 16.3
--- NOTE | 2017-06-15 17:28 | NUR ---
CM met with patient today to verify address: [address], [address], [place]. . CM contacted [facility] to verify that patient has picked up her catheters--she has not, per Flor. Per Medicaid site, patient's PCP is Kylee Suarez. CM contacted Johanne, who verifies that patient has made one visit in January 2016, skipped 3 visits, last visit was in July 2016. Appointment made for Wednesday, June 21, 2017 @3:20 with Noemy @[facility]. CM request that [facility] (patient's DME) be provided with a prescription for Colostomy bags. Patient made aware of same and provided date, time, address, phone number of [facility]. Notified ER provider and patient's nurse of same. CM will fax the address to [facility] so they can deliver patient's catheter supplies to same. Nancy Hernandez RN, CM
== END 2017-06-15 17:23 | disposition home or self-care (01) ==
LOC: D.ER 16:13
DX: E10.69 Type 1 diabetes mellitus with other specified complication (principal); Z79.4 Long term (current) use of insulin; N31.9 Neuromuscular dysfunction of bladder, unspecified; F17.200 Nicotine dependence, unspecified, uncomplicated

== ENCOUNTER 2017-06-21 14:33 | Inpatient (IN) | payer MEDICAID ==
[~2017-06-21] VITALS: Ht 165.1 cm; Wt 40.0 kg
--- NOTE | ~2017-06-21 | OP ---
PATIENT NAME: SOFIA FONTENOT MEDICAL RECORD: [id number] :[birth year] LOCATION:[facility] D.[id number] ADMISSION DATE:06/21/17 SURGEON: BASIL DIAZ MD DATE OF OPERATION: 06/24/2017 SURGEON: Basil Diaz MD ANESTHESIA: MAC by Dr. Avina. PREOPERATIVE DIAGNOSES: Gross hematuria, possible bladder mass. POSTOPERATIVE DIAGNOSES: Gross hematuria, hemorrhagic cystitis, blood clots in the bladder. PROCEDURES: Cystoscopy and bladder clot evacuation. ESTIMATED BLOOD LOSS: None. CLINICAL HISTORY: This is a 32-year-old female who has had type 1 diabetes mellitus. She has not controlled it very well. She is in the ICU right now for diabetic ketoacidosis. 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 At her last visit, we taught her how to perform self intermittent catheterization, but apparently she has not been doing it. She came in with acute urinary retention and renal failure. She has an indwelling Solis catheter now in the ICU. Imaging revealed hydroureteronephrosis with masses in the bladder. She comes, there is gross hematuria. Urine cultures have been negative. She comes today to have the masses evaluated by cystoscopy. If they community outreach director to be tumor then we will resect the tumor. If they community outreach director to be just blood clots, we will get rid of the blood clots. She is already on Levaquin from the ICU and we did not give her any further antibiotics. DESCRIPTION OF PROCEDURE: The patient was given IV sedation. She was placed in the dorsal lithotomy position and prepped and draped. A 21-Czech cystoscope with 30-degree lens was used for visualization. Single ureteral orifices are seen on each side. No bladder tumors were seen. Large blood clots were seen in the bladder. The bladder mucosa was diffusely inflamed suggestive of hemorrhagic cystitis. An Ellik evacuator was used to remove the blood clots. Once the clots were all removed, we did not find any tumors. A 16-Czech indwelling Solis catheter was placed back into the bladder and the patient will be transferred back to the intensive care unit. TRANSINT:[id number] Voice Confirmation ID: [id number] DOCUMENT ID: [id number] BASIL DIAZ MD at 1356 CC: [id number] DICTATION DATE: 06/24/17 1248 FENCE MACHINE OPERATOR: 06/24/17 1353 ADM IN [facility] [address] [id number]
--- NOTE | ~2017-06-21 | EC ---
PATIENT:SOFIA FONTENOT DATE OF SERVICE: 06/21/17 SEX: F MEDICAL RECORD: [id number] DATE OF : [birth year] LOCATION:D.MS [address] AGE OF PATIENT: 32 ADMISSION DATE: 06/21/17 REFERRING PHYSICIAN: INTERPRETING PHYSICIAN: GREG HUTCHISON MD ECHOCARDIOGRAM REPORT ECHO CHARGES 4 ECHO COMPLETE CLINICAL DIAGNOSIS: TACHYCARDIA/FEVER ECHOCARDIOGRAPHIC MEASUREMENTS (adult normal given) AC root (d.<3.7cm) 3.2 cm LV Septum d (<1.2 cm> 0.7 cm Valve Excursion 1.7 cm LV Septum (systole) 1.1 cm Left Atria (s.<4.0cm> 2.5 cm LVPW d(<1.2cm) 1.0 cm RV (d.<2.3cm) 1.7 cm LVPW (sytole) 1.6 cm LV diastole(<5.6CM) 4.9 cm MV E-F(>70mm/sec) cm LV systole 3.1 cm LVOT Diameter 1.7 cm MV exc.(>10mm) cm Est.ejection fraction (50-75%) % Pericardial Effusion N DOPPLER: LVIT cm/sec A 51.0 cm/sec E 80.0 cm/sec LA cm/sec RVSP mmHg LVOT 82.0 cm/sec AOP1/2T m/s Asc. Ao 116 cm/sec RVOT cm/sec RA cm/sec PA cm/sec AV Gradient Peak 5.4 mmHg AV Mean 3.0 mmHg AV Area 1.6 cm MV Gradient Peak 2.7 mmHg MV Mean 1.2 mmHg MV Area cm COMMENTS: Computer Networking Instructor Adjunct: 1 CASTRO ROSAOE Dispatch Machine Runner: 1 Dr. Hutchison TAPE# PACS DATE OF SERVICE: 06/26/2017 Echocardiogram FINDINGS: 1. Left ventricular chamber size is within normal limits. Left ventricular systolic function is normal. Overall ejection fraction estimated at 50%. 2. Left atrium, right atrium, and right ventricular chamber sizes are within normal limits. 3. Valvular structures have normal structure and motion. ECHOCARDIOGRAM REPORT [id number] SOFIA FONTENOT 4. Doppler interrogation reveals no significant valvular insufficiency or stenosis. 5. No evidence of pericardial effusion or left ventricular thrombus. TRANSINT:[id number] Voice Confirmation ID: [id number] DOCUMENT ID: [id number] GREG HUTCHISON MD at 1546 CC: [id number] DICTATION DATE: 06/27/17 1041 MANAGER MEDICARE MARKETING: 06/27/17 1123 ADM IN [facility] [address] [id number]
[2017-06-21 15:06] LABS: BASOPHILS 0.2 % (0-2); EOSINOPHILS 0 % (0-7); IMMATURE GRANULOCYTES 0.5 % (0-5); LYMPHOCYTES 18.6 % (15-50); MCH 26.1 pg (26.0-34.0); MCHC 35.5 g/dL (31.0-37.0); MCV 73.5 fL (80.0-100.0); MEAN PLATELET VOLUME 10.4 fL (7.4-10.4); MONOCYTES 11.9 % (2-11); NEUTROPHILS 68.8 % (40-80); PLATELET COUNT 200 10x3/uL (130-400); RBC 4.22 10x6/uL (4.00-5.40); RDW 16.1 % (11.5-14.5); WBC 6.1 10x3/uL (4.8-10.8)
[2017-06-21 15:30] LABS: ALBUMIN 2.5 g/dL (3.4-5.0); BILIRUBIN - TOTAL 0.46 mg/dL (0.2-1.3); CALCIUM 8.7 mg/dL (8.5-10.1); CREATININE - SERUM 4.2 mg/dL (0.6-1.3); MAGNESIUM - SERUM 2.7 mg/dL (1.8-2.4); POTASSIUM - SERUM 4.1 mmol/L (3.5-5.1); PROTEIN - SERUM 8.4 g/dL (6.4-8.2)
[2017-06-21 15:32] LABS: CARBON DIOXIDE 8.1 mmol/L (21.0-32.0)
[2017-06-21 16:24] LABS: UDS - AMPHET NEGATIVE QUAL (NEGATIVE); UDS - BARB NEGATIVE QUAL (NEGATIVE)
[2017-06-21 16:25] LABS: UDS - BENZO NEGATIVE QUAL (NEGATIVE); UDS - COCAINE POSITIVE QUAL (NEGATIVE); UDS - OPIATE NEGATIVE QUAL (NEGATIVE); UDS - PCP NEGATIVE QUAL (NEGATIVE); UDS - THC NEGATIVE QUAL (NEGATIVE)
[2017-06-21 16:26] LABS: APPEARANCE TURBID (CLEAR); COLOR STRAW (YELLOW); NITRITE NEGATIVE (NEGATIVE); SPECIFIC GRAVITY 1.015 (1.005-1.020)
[2017-06-21 16:27] LABS: BILIRUBIN NEGATIVE (NEGATIVE); GLUCOSE 500 mg/dL (NEGATIVE); KETONE MODERATE mg/dL (NEGATIVE); PROTEIN TRACE mg/dL (NEGATIVE); UROBILINOGEN NORMAL (NORMAL)
[2017-06-21 16:34] LABS: BACTERIA MANY /hpf (NONE SEEN); EPITHELIAL CELLS 0-5 /hpf (0-5); WHITE CELLS - URINE 25-50 /hpf (0-5)
[2017-06-21 16:35] LABS: YEAST >1+ /hpf (NONE SEEN)
[2017-06-21 18:09] LABS: HEMOGLOBIN A1C 12.2 % (4.8-6.0)
[2017-06-21 19:03] LABS: CALCIUM 8.1 mg/dL (8.5-10.1); CREATININE - SERUM 3.5 mg/dL (0.6-1.3); MAGNESIUM - SERUM 2.3 mg/dL (1.8-2.4); POTASSIUM - SERUM 4.4 mmol/L (3.5-5.1)
[2017-06-21 19:04] LABS: ANION GAP 26.7 mmol/L (8-16)
[2017-06-21 19:07] LABS: CARBON DIOXIDE 9.7 mmol/L (21.0-32.0)
[2017-06-21 20:15] VITALS: BP 97/75
[2017-06-21 20:30] VITALS: BP 98/60
[2017-06-21 20:33] VITALS: BP 97/75; BMI 17.4
[2017-06-21 21:00] VITALS: BP 96/68
[2017-06-21 21:15] LABS: BASOPHILS 0.2 % (0-2); EOSINOPHILS 0.2 % (0-7); HEMATOCRIT 26.3 % (36.0-48.0); HEMOGLOBIN 9.6 g/dL (12-16); IMMATURE GRANULOCYTES 0.3 % (0-5); LYMPHOCYTES 23.4 % (15-50); MCHC 36.5 g/dL (31.0-37.0); MEAN PLATELET VOLUME 10.1 fL (7.4-10.4); MONOCYTES 10.8 % (2-11); NEUTROPHILS 65.1 % (40-80); PLATELET COUNT 214 10x3/uL (130-400); RBC 3.69 10x6/uL (4.00-5.40); RDW 15.7 % (11.5-14.5); WBC 6.6 10x3/uL (4.8-10.8)
[2017-06-21 21:19] LABS: MCV 71.3 fL (80.0-100.0)
[2017-06-21 21:59] LABS: KETONE - SERUM NEGATIVE (NEGATIVE)
[2017-06-21 22:00] VITALS: BP 100/71
[2017-06-21 22:36] LABS: ALBUMIN 2.3 g/dL (3.4-5.0); ALKALINE PHOSPHATASE 123 U/L (46-116); ALT (SGPT) 12 U/L (10-68); CALCIUM 8.5 mg/dL (8.5-10.1); CHLORIDE - SERUM 92 mmol/L (98-107); CREATININE - SERUM 3.4 mg/dL (0.6-1.3); PROTEIN - SERUM 6.8 g/dL (6.4-8.2); SODIUM 124 mmol/L (136-145); UREA NITROGEN 85 mg/dL (7-18); eGFR NON AFRICAN AMERICAN 17 mL/min (90-120)
[2017-06-21 22:41] LABS: CALC OSMOLALITY 275 mosm/kg (275-300); GLUCOSE 101 mg/dL (74-106); POTASSIUM - SERUM 3.2 mmol/L (3.5-5.1)
[2017-06-21 22:42] LABS: CARBON DIOXIDE 9.7 mmol/L (21.0-32.0)
[2017-06-21 23:00] VITALS: BP 94/73
[2017-06-22] VITALS (24 sets, daily range): BP systolic 87–123; BP diastolic 52–78; BMI 14.9
[2017-06-22 08:45] LABS: BASOPHILS 0.2 % (0-2); EOSINOPHILS 0.2 % (0-7); HEMATOCRIT 24.7 % (36.0-48.0); HEMOGLOBIN 8.9 g/dL (12-16); IMMATURE GRANULOCYTES 0.5 % (0-5); LYMPHOCYTES 21.1 % (15-50); MCH 25.8 pg (26.0-34.0); MCV 71.6 fL (80.0-100.0); MEAN PLATELET VOLUME 10.4 fL (7.4-10.4); MONOCYTES 14.1 % (2-11); NEUTROPHILS 63.9 % (40-80); PLATELET COUNT 219 10x3/uL (130-400); RBC 3.45 10x6/uL (4.00-5.40); WBC 5.8 10x3/uL (4.8-10.8)
[2017-06-22 08:54] LABS: ALBUMIN 2.1 g/dL (3.4-5.0); BILIRUBIN - TOTAL 0.42 mg/dL (0.2-1.3); CALCIUM 8.1 mg/dL (8.5-10.1); CARBON DIOXIDE 12.4 mmol/L (21.0-32.0); CREATININE - SERUM 2.6 mg/dL (0.6-1.3); MAGNESIUM - SERUM 2.1 mg/dL (1.8-2.4); POTASSIUM - SERUM 3.4 mmol/L (3.5-5.1); PROTEIN - SERUM 6.3 g/dL (6.4-8.2)
[2017-06-22 13:03] LABS: KETONE - SERUM NEGATIVE (NEGATIVE)
[2017-06-22 13:06] LABS: CALC OSMOLALITY 270 mosm/kg (275-300); CALCIUM 8.6 mg/dL (8.5-10.1); CARBON DIOXIDE 12.3 mmol/L (21.0-32.0); CHLORIDE - SERUM 96 mmol/L (98-107); CREATININE - SERUM 2.8 mg/dL (0.6-1.3); GLUCOSE 182 mg/dL (74-106); MAGNESIUM - SERUM 2.1 mg/dL (1.8-2.4); POTASSIUM - SERUM 3.1 mmol/L (3.5-5.1); SODIUM 122 mmol/L (136-145); UREA NITROGEN 68 mg/dL (7-18); eGFR NON AFRICAN AMERICAN 21 mL/min (90-120)
[2017-06-22 17:09] LABS: ANION GAP 17.7 mmol/L (8-16); CALCIUM 8.2 mg/dL (8.5-10.1); CARBON DIOXIDE 12.2 mmol/L (21.0-32.0); CREATININE - SERUM 2.7 mg/dL (0.6-1.3)
[2017-06-22 17:11] LABS: POTASSIUM - SERUM 3.9 mmol/L (3.5-5.1)
[2017-06-22 17:24] LABS: BASOPHILS 0 % (0-2); EOSINOPHILS 0.1 % (0-7); HEMATOCRIT 21.8 % (36.0-48.0); HEMOGLOBIN 7.7 g/dL (12-16); IMMATURE GRANULOCYTES 0.4 % (0-5); LYMPHOCYTES 21.5 % (15-50); MCH 25.2 pg (26.0-34.0); MCHC 35.3 g/dL (31.0-37.0); MCV 71.2 fL (80.0-100.0); MEAN PLATELET VOLUME 10.4 fL (7.4-10.4); MONOCYTES 10.8 % (2-11); NEUTROPHILS 67.2 % (40-80); PLATELET COUNT 217 10x3/uL (130-400); RBC 3.06 10x6/uL (4.00-5.40); RDW 16.2 % (11.5-14.5); WBC 6.9 10x3/uL (4.8-10.8)
[2017-06-23] VITALS (24 sets, daily range): BP systolic 94–134; BP diastolic 62–97; Ht 165.1 cm; Wt 40.0 kg
[2017-06-23 08:16] LABS: BASOPHILS 0 % (0-2); EOSINOPHILS 0.1 % (0-7); IMMATURE GRANULOCYTES 0.7 % (0-5); LYMPHOCYTES 15.8 % (15-50); MCHC 34.5 g/dL (31.0-37.0); MEAN PLATELET VOLUME 10.6 fL (7.4-10.4); MONOCYTES 11.2 % (2-11); NEUTROPHILS 72.2 % (40-80); PLATELET COUNT 179 10x3/uL (130-400); RDW 16.6 % (11.5-14.5); WBC 7.4 10x3/uL (4.8-10.8)
[2017-06-23 08:18] LABS: HEMATOCRIT 33.3 % (36.0-48.0); HEMOGLOBIN 11.5 g/dL (12-16); MCV 75.3 fL (80.0-100.0); RBC 4.42 10x6/uL (4.00-5.40)
[2017-06-23 08:24] LABS: BILIRUBIN - TOTAL 0.47 mg/dL (0.2-1.3); CALCIUM 7.7 mg/dL (8.5-10.1); CARBON DIOXIDE 10.3 mmol/L (21.0-32.0)
[2017-06-23 08:25] LABS: ANION GAP 18.3 mmol/L (8-16); CREATININE - SERUM 1.9 mg/dL (0.6-1.3); POTASSIUM - SERUM 4.6 mmol/L (3.5-5.1)
[2017-06-23 13:25] LABS: ALBUMIN 2.1 g/dL (3.4-5.0); BILIRUBIN - TOTAL 0.4 mg/dL (0.2-1.3); CALCIUM 8.3 mg/dL (8.5-10.1); CREATININE - SERUM 1.9 mg/dL (0.6-1.3); MAGNESIUM - SERUM 1.8 mg/dL (1.8-2.4); PHOSPHOROUS 2.6 mg/dL (2.5-4.9); PROTEIN - SERUM 6.9 g/dL (6.4-8.2)
[2017-06-23 13:28] LABS: ANION GAP 17.8 mmol/L (8-16); POTASSIUM - SERUM 3.8 mmol/L (3.5-5.1)
[2017-06-23 15:04] LABS: ERYTHROCYTE SEDIMENTATION RATE 79 mm/hr (0-20)
[2017-06-24] VITALS (26 sets, daily range): BP systolic 97–130; BP diastolic 35–93
[2017-06-24 04:49] LABS: BASOPHILS 0.1 % (0-2); EOSINOPHILS 0.1 % (0-7); HEMATOCRIT 29.4 % (36.0-48.0); HEMOGLOBIN 10.4 g/dL (12-16); IMMATURE GRANULOCYTES 0.8 % (0-5); LYMPHOCYTES 16.3 % (15-50); MCH 26.4 pg (26.0-34.0); MCHC 35.4 g/dL (31.0-37.0); MCV 74.6 fL (80.0-100.0); MEAN PLATELET VOLUME 10.4 fL (7.4-10.4); NEUTROPHILS 68.7 % (40-80); RBC 3.94 10x6/uL (4.00-5.40); RDW 16.5 % (11.5-14.5)
[2017-06-24 04:53] LABS: PLATELET COUNT 291 10x3/uL (130-400)
[2017-06-24 05:17] LABS: ALBUMIN 1.9 g/dL (3.4-5.0); BILIRUBIN - TOTAL 0.47 mg/dL (0.2-1.3); CALCIUM 7.7 mg/dL (8.5-10.1); PROTEIN - SERUM 6.4 g/dL (6.4-8.2)
[2017-06-24 05:20] LABS: ANION GAP 16.6 mmol/L (8-16); CARBON DIOXIDE 16.5 mmol/L (21.0-32.0); CREATININE - SERUM 1.4 mg/dL (0.6-1.3); POTASSIUM - SERUM 3.1 mmol/L (3.5-5.1)
[2017-06-24 11:45] LABS: APPEARANCE HAZY (CLEAR); BILIRUBIN NEGATIVE (NEGATIVE); COLOR YELLOW (YELLOW); GLUCOSE 250 mg/dL (NEGATIVE); KETONE MODERATE mg/dL (NEGATIVE); NITRITE NEGATIVE (NEGATIVE); PROTEIN 1+ mg/dL (NEGATIVE); SPECIFIC GRAVITY 1.005 (1.005-1.020); UROBILINOGEN NORMAL (NORMAL)
[2017-06-24 11:46] LABS: BACTERIA MODERATE /hpf (NONE SEEN); EPITHELIAL CELLS OCC /hpf (0-5); MUCUS <1+ /lpf (NONE SEEN); YEAST <1+ /hpf (NONE SEEN)
[2017-06-25] VITALS (24 sets, daily range): BP systolic 94–150; BP diastolic 63–91
[2017-06-25 04:35] LABS: BASOPHILS 0.1 % (0-2); EOSINOPHILS 0.3 % (0-7); HEMATOCRIT 27.6 % (36.0-48.0); HEMOGLOBIN 9.8 g/dL (12-16); IMMATURE GRANULOCYTES 0.6 % (0-5); LYMPHOCYTES 23.2 % (15-50); MCH 26.9 pg (26.0-34.0); MCHC 35.5 g/dL (31.0-37.0); MCV 75.8 fL (80.0-100.0); MEAN PLATELET VOLUME 9.5 fL (7.4-10.4); MONOCYTES 11.5 % (2-11); NEUTROPHILS 64.3 % (40-80); PLATELET COUNT 342 10x3/uL (130-400); RBC 3.64 10x6/uL (4.00-5.40); RDW 16.6 % (11.5-14.5)
[2017-06-25 04:36] LABS: WBC 11.4 10x3/uL (4.8-10.8)
[2017-06-25 05:01] LABS: ALBUMIN 1.8 g/dL (3.4-5.0); ANION GAP 13.7 mmol/L (8-16); BILIRUBIN - TOTAL 0.36 mg/dL (0.2-1.3); C-REACTIVE PROTEIN 21.2 mg/dL (0.0-0.9); CALCIUM 7.7 mg/dL (8.5-10.1); CARBON DIOXIDE 19.6 mmol/L (21.0-32.0); MAGNESIUM - SERUM 1.1 mg/dL (1.8-2.4); PHOSPHOROUS 2.1 mg/dL (2.5-4.9); POTASSIUM - SERUM 3.3 mmol/L (3.5-5.1); PROTEIN - SERUM 6.5 g/dL (6.4-8.2); THYROID STIMULATING HORMONE 0.48 uIU/mL (0.36-3.74)
[2017-06-26] VITALS (23 sets, daily range): BP systolic 88–150; BP diastolic 55–90
[2017-06-26 04:51] LABS: BASOPHILS 0.1 % (0-2); EOSINOPHILS 0.6 % (0-7); HEMATOCRIT 28.7 % (36.0-48.0); IMMATURE GRANULOCYTES 1.1 % (0-5); MCH 26.6 pg (26.0-34.0); MCHC 34.8 g/dL (31.0-37.0); MCV 76.3 fL (80.0-100.0); MEAN PLATELET VOLUME 9.3 fL (7.4-10.4); MONOCYTES 9.1 % (2-11); NEUTROPHILS 62.1 % (40-80); PLATELET COUNT 410 10x3/uL (130-400); RBC 3.76 10x6/uL (4.00-5.40); RDW 16.7 % (11.5-14.5); WBC 13.8 10x3/uL (4.8-10.8)
[2017-06-26 05:13] LABS: ALBUMIN 1.9 g/dL (3.4-5.0); ALKALINE PHOSPHATASE 128 U/L (46-116); ALT (SGPT) 6 U/L (10-68); C-REACTIVE PROTEIN 21.9 mg/dL (0.0-0.9); CALC OSMOLALITY 261 mosm/kg (275-300); CALCIUM 7.7 mg/dL (8.5-10.1); CARBON DIOXIDE 21.1 mmol/L (21.0-32.0); CHLORIDE - SERUM 98 mmol/L (98-107); CREATININE - SERUM 0.8 mg/dL (0.6-1.3); GLUCOSE 207 mg/dL (74-106); MAGNESIUM - SERUM 1.4 mg/dL (1.8-2.4); PHOSPHOROUS 2.3 mg/dL (2.5-4.9); POTASSIUM - SERUM 3.3 mmol/L (3.5-5.1); PROTEIN - SERUM 7.2 g/dL (6.4-8.2); SODIUM 128 mmol/L (136-145); UREA NITROGEN 9 mg/dL (7-18); eGFR NON AFRICAN AMERICAN 89 mL/min (90-120)
[2017-06-26 05:29] LABS: T4 THYROXIN - FREE 1.61 ng/dL (0.76-1.46)
[2017-06-26 05:53] LABS: ERYTHROCYTE SEDIMENTATION RATE 42 mm/hr (0-20)
[2017-06-27] VITALS (24 sets, daily range): BP systolic 87–119; BP diastolic 52–89
[2017-06-27 04:01] LABS: ALBUMIN 1.7 g/dL (3.4-5.0); ALKALINE PHOSPHATASE 126 U/L (46-116); ALT (SGPT) 6 U/L (10-68); CALC OSMOLALITY 267 mosm/kg (275-300); CALCIUM 7.9 mg/dL (8.5-10.1); CARBON DIOXIDE 17.3 mmol/L (21.0-32.0); CHLORIDE - SERUM 99 mmol/L (98-107); CREATININE - SERUM 0.9 mg/dL (0.6-1.3); MAGNESIUM - SERUM 1.3 mg/dL (1.8-2.4); PHOSPHOROUS 2.4 mg/dL (2.5-4.9); POTASSIUM - SERUM 4.7 mmol/L (3.5-5.1); PROTEIN - SERUM 7.1 g/dL (6.4-8.2); SODIUM 127 mmol/L (136-145); UREA NITROGEN 7 mg/dL (7-18); eGFR NON AFRICAN AMERICAN 78 mL/min (90-120)
[2017-06-27 04:02] LABS: GLUCOSE 360 mg/dL (74-106)
[2017-06-28] VITALS (24 sets, daily range): BP systolic 86–110; BP diastolic 47–83
[2017-06-28 05:21] LABS: BASOPHILS 0.1 % (0-2); EOSINOPHILS 0.3 % (0-7); HEMOGLOBIN 8.8 g/dL (12-16); LYMPHOCYTES 16.2 % (15-50); MCH 26.3 pg (26.0-34.0); MCHC 33.8 g/dL (31.0-37.0); MCV 77.8 fL (80.0-100.0); MONOCYTES 5.9 % (2-11); NEUTROPHILS 76.5 % (40-80); PLATELET COUNT 507 10x3/uL (130-400); RBC 3.34 10x6/uL (4.00-5.40); RDW 16.5 % (11.5-14.5); WBC 14.6 10x3/uL (4.8-10.8)
[2017-06-28 05:53] LABS: ALBUMIN 1.7 g/dL (3.4-5.0); ALKALINE PHOSPHATASE 116 U/L (46-116); ALT (SGPT) 6 U/L (10-68); CALCIUM 7.9 mg/dL (8.5-10.1); CARBON DIOXIDE 17.7 mmol/L (21.0-32.0); CHLORIDE - SERUM 101 mmol/L (98-107); PROTEIN - SERUM 6.9 g/dL (6.4-8.2); SODIUM 130 mmol/L (136-145)
[2017-06-28 05:54] LABS: CALC OSMOLALITY 261 mosm/kg (275-300); GLUCOSE 172 mg/dL (74-106); UREA NITROGEN 5 mg/dL (7-18)
[2017-06-28 05:55] LABS: CREATININE - SERUM 0.6 mg/dL (0.6-1.3); eGFR NON AFRICAN AMERICAN > 90 mL/min (90-120)
[2017-06-28 07:55] LABS: MAGNESIUM - SERUM 1.5 mg/dL (1.8-2.4)
[2017-06-28 10:37] LABS: APPEARANCE HAZY (CLEAR); BILIRUBIN NEGATIVE (NEGATIVE); COLOR STRAW (YELLOW); GLUCOSE 1000 mg/dL (NEGATIVE); KETONE NEGATIVE (NEGATIVE); NITRITE NEGATIVE (NEGATIVE); PROTEIN NEGATIVE (NEGATIVE); SPECIFIC GRAVITY 1.015 (1.005-1.020); UROBILINOGEN NORMAL (NORMAL)
[2017-06-28 10:38] LABS: CREATININE - URINE 21.7 mg/dL (30-125); PRO/CRE RATIO URINE 1.8 mg/g; PROTEIN - URINE 38.5 mg/dL (0.0-11.9)
[2017-06-28 10:40] LABS: BACTERIA MODERATE /hpf (NONE SEEN); EPITHELIAL CELLS 0-5 /hpf (0-5); GRANULAR CAST RARE /lpf (NONE SEEN); MUCUS <1+ /lpf (NONE SEEN); RED CELLS - URINE 0-5 /hpf (0-5); YEAST OCC /hpf (NONE SEEN)
[2017-06-29] VITALS (16 sets, daily range): BP systolic 86–115; BP diastolic 55–80
[2017-06-29 03:47] LABS: BASOPHILS 0.1 % (0-2); EOSINOPHILS 0.3 % (0-7); HEMATOCRIT 26.6 % (36.0-48.0); HEMOGLOBIN 8.8 g/dL (12-16); IMMATURE GRANULOCYTES 0.7 % (0-5); MCH 26.6 pg (26.0-34.0); MCHC 33.1 g/dL (31.0-37.0); MEAN PLATELET VOLUME 8.9 fL (7.4-10.4); MONOCYTES 5.1 % (2-11); NEUTROPHILS 76.8 % (40-80); PLATELET COUNT 502 10x3/uL (130-400); RBC 3.31 10x6/uL (4.00-5.40); RDW 16.7 % (11.5-14.5); WBC 16.3 10x3/uL (4.8-10.8)
[2017-06-29 04:06] LABS: MCV 80.4 fL (80.0-100.0)
[2017-06-29 04:13] LABS: ALBUMIN 1.6 g/dL (3.4-5.0); ALKALINE PHOSPHATASE 100 U/L (46-116); ALT (SGPT) 5 U/L (10-68); CARBON DIOXIDE 14.7 mmol/L (21.0-32.0); CHLORIDE - SERUM 106 mmol/L (98-107); CREATININE - SERUM 0.7 mg/dL (0.6-1.3); MAGNESIUM - SERUM 1.3 mg/dL (1.8-2.4); PHOSPHOROUS 3.1 mg/dL (2.5-4.9); POTASSIUM - SERUM 3.8 mmol/L (3.5-5.1); PROTEIN - SERUM 6.8 g/dL (6.4-8.2); SODIUM 134 mmol/L (136-145); eGFR NON AFRICAN AMERICAN > 90 mL/min (90-120)
[2017-06-29 04:27] LABS: CALC OSMOLALITY 265 mosm/kg (275-300); GLUCOSE 95 mg/dL (74-106); UREA NITROGEN 8 mg/dL (7-18)
[2017-06-30 04:00] VITALS: BP 98/70
[2017-06-30 05:12] LABS: BASOPHILS 0.1 % (0-2); EOSINOPHILS 0.5 % (0-7); HEMATOCRIT 26.9 % (36.0-48.0); IMMATURE GRANULOCYTES 0.6 % (0-5); LYMPHOCYTES 17.7 % (15-50); MCH 26.4 pg (26.0-34.0); MCHC 33.5 g/dL (31.0-37.0); MCV 78.9 fL (80.0-100.0); MEAN PLATELET VOLUME 8.7 fL (7.4-10.4); MONOCYTES 4.7 % (2-11); NEUTROPHILS 76.4 % (40-80); PLATELET COUNT 575 10x3/uL (130-400); RBC 3.41 10x6/uL (4.00-5.40); RDW 16.5 % (11.5-14.5); WBC 13.7 10x3/uL (4.8-10.8)
[2017-06-30 05:27] LABS: ALBUMIN 1.7 g/dL (3.4-5.0); ALKALINE PHOSPHATASE 105 U/L (46-116); BILIRUBIN - TOTAL 0.18 mg/dL (0.2-1.3); CALC OSMOLALITY 263 mosm/kg (275-300); CALCIUM 8.5 mg/dL (8.5-10.1); CHLORIDE - SERUM 102 mmol/L (98-107); CREATININE - SERUM 0.7 mg/dL (0.6-1.3); GLUCOSE 96 mg/dL (74-106); PROTEIN - SERUM 7.2 g/dL (6.4-8.2); SODIUM 133 mmol/L (136-145); UREA NITROGEN 6 mg/dL (7-18); eGFR NON AFRICAN AMERICAN > 90 mL/min (90-120)
[2017-06-30 05:29] LABS: ALT (SGPT) 7 U/L (10-68); CARBON DIOXIDE 23.1 mmol/L (21.0-32.0); POTASSIUM - SERUM 4.8 mmol/L (3.5-5.1)
[2017-06-30 09:16] LABS: IMMUNOGLOBULIN E 181 IU/mL (0-100)
[2017-06-30 09:33] VITALS: BP 102/68
[2017-06-30 13:29] VITALS: BP 101/57
[2017-06-30 16:30] VITALS: BP 99/66
[2017-06-30 20:00] VITALS: BP 98/64
[2017-07-01 04:00] VITALS: BP 96/62
[2017-07-01 06:24] LABS: ALBUMIN 1.8 g/dL (3.4-5.0); ALKALINE PHOSPHATASE 113 U/L (46-116); ALT (SGPT) 6 U/L (10-68); CALCIUM 8.6 mg/dL (8.5-10.1); CARBON DIOXIDE 21.1 mmol/L (21.0-32.0); CHLORIDE - SERUM 104 mmol/L (98-107); CREATININE - SERUM 0.6 mg/dL (0.6-1.3); PROTEIN - SERUM 7.6 g/dL (6.4-8.2); SODIUM 134 mmol/L (136-145); eGFR NON AFRICAN AMERICAN > 90 mL/min (90-120)
[2017-07-01 06:28] LABS: BASOPHILS 0.2 % (0-2); EOSINOPHILS 0.9 % (0-7); HEMATOCRIT 28.5 % (36.0-48.0); HEMOGLOBIN 9.3 g/dL (12-16); IMMATURE GRANULOCYTES 0.6 % (0-5); LYMPHOCYTES 29.8 % (15-50); MCH 26.3 pg (26.0-34.0); MCHC 32.6 g/dL (31.0-37.0); MCV 80.5 fL (80.0-100.0); MONOCYTES 5.2 % (2-11); NEUTROPHILS 63.3 % (40-80); PLATELET COUNT 610 10x3/uL (130-400); RBC 3.54 10x6/uL (4.00-5.40); RDW 16.7 % (11.5-14.5); WBC 11.8 10x3/uL (4.8-10.8)
[2017-07-01 06:29] LABS: CALC OSMOLALITY 262 mosm/kg (275-300); GLUCOSE 53 mg/dL (74-106); MAGNESIUM - SERUM 1.2 mg/dL (1.8-2.4); POTASSIUM - SERUM 3.9 mmol/L (3.5-5.1); UREA NITROGEN 8 mg/dL (7-18)
[2017-07-01 09:38] VITALS: BP 101/64
[2017-07-01 13:12] VITALS: BP 107/64
[2017-07-01 17:01] VITALS: BP 114/73
[2017-07-01 20:00] VITALS: BP 920/53
[2017-07-02 00:48] VITALS: BP 100/68
[2017-07-02 04:00] VITALS: BP 104/65
[2017-07-02 04:28] LABS: BASOPHILS 0.1 % (0-2); EOSINOPHILS 0.8 % (0-7); HEMOGLOBIN 8.5 g/dL (12-16); IMMATURE GRANULOCYTES 0.4 % (0-5); LYMPHOCYTES 20.9 % (15-50); MCH 26.4 pg (26.0-34.0); MCHC 32.7 g/dL (31.0-37.0); MCV 80.7 fL (80.0-100.0); MEAN PLATELET VOLUME 8.5 fL (7.4-10.4); MONOCYTES 4.8 % (2-11); PLATELET COUNT 517 10x3/uL (130-400); RBC 3.22 10x6/uL (4.00-5.40); RDW 16.1 % (11.5-14.5); WBC 11.2 10x3/uL (4.8-10.8)
[2017-07-02 04:46] LABS: ALBUMIN 1.6 g/dL (3.4-5.0); ALKALINE PHOSPHATASE 111 U/L (46-116); ALT (SGPT) 8 U/L (10-68); BILIRUBIN - TOTAL 0.12 mg/dL (0.2-1.3); CALC OSMOLALITY 265 mosm/kg (275-300); CALCIUM 8.3 mg/dL (8.5-10.1); CARBON DIOXIDE 23.4 mmol/L (21.0-32.0); CHLORIDE - SERUM 103 mmol/L (98-107); CREATININE - SERUM 0.7 mg/dL (0.6-1.3); GLUCOSE 117 mg/dL (74-106); POTASSIUM - SERUM 4.4 mmol/L (3.5-5.1); PROTEIN - SERUM 6.9 g/dL (6.4-8.2); SODIUM 133 mmol/L (136-145); UREA NITROGEN 9 mg/dL (7-18); eGFR NON AFRICAN AMERICAN > 90 mL/min (90-120)
[2017-07-02 08:49] VITALS: BP 98/25
[2017-07-02 12:56] VITALS: BP 132/70
[2017-07-02 19:56] VITALS: BP 112/69
[2017-07-02 23:32] VITALS: BP 133/89
[2017-07-03 03:09] LABS: OVA + PARASITE EXAM Final report (())
[2017-07-03 03:30] VITALS: BP 114/84
[2017-07-03 05:17] LABS: BASOPHILS 0.1 % (0-2); EOSINOPHILS 0.5 % (0-7); HEMATOCRIT 26.4 % (36.0-48.0); HEMOGLOBIN 8.5 g/dL (12-16); IMMATURE GRANULOCYTES 0.2 % (0-5); LYMPHOCYTES 22.5 % (15-50); MCH 26.3 pg (26.0-34.0); MCHC 32.2 g/dL (31.0-37.0); MCV 81.7 fL (80.0-100.0); MEAN PLATELET VOLUME 8.8 fL (7.4-10.4); MONOCYTES 3.5 % (2-11); NEUTROPHILS 73.2 % (40-80); PLATELET COUNT 526 10x3/uL (130-400); RBC 3.23 10x6/uL (4.00-5.40); WBC 13.2 10x3/uL (4.8-10.8)
[2017-07-03 05:41] LABS: ALBUMIN 1.6 g/dL (3.4-5.0); ALKALINE PHOSPHATASE 120 U/L (46-116); ALT (SGPT) 8 U/L (10-68); CALC OSMOLALITY 269 mosm/kg (275-300); CALCIUM 8.9 mg/dL (8.5-10.1); CARBON DIOXIDE 25.3 mmol/L (21.0-32.0); CHLORIDE - SERUM 104 mmol/L (98-107); CREATININE - SERUM 0.6 mg/dL (0.6-1.3); GLUCOSE 109 mg/dL (74-106); POTASSIUM - SERUM 4.4 mmol/L (3.5-5.1); PROTEIN - SERUM 7.3 g/dL (6.4-8.2); SODIUM 135 mmol/L (136-145); UREA NITROGEN 9 mg/dL (7-18); eGFR NON AFRICAN AMERICAN > 90 mL/min (90-120)
[2017-07-03 07:03] VITALS: BP 115/74
[2017-07-03 11:10] VITALS: BP 118/84
[2017-07-03 14:58] VITALS: BP 126/89
[2017-07-03 20:00] VITALS: BP 112/79
[2017-07-04] VITALS: BP 132/93
[2017-07-04 04:29] LABS: BASOPHILS 0.2 % (0-2); EOSINOPHILS 0.2 % (0-7); HEMATOCRIT 28.8 % (36.0-48.0); HEMOGLOBIN 9.2 g/dL (12-16); IMMATURE GRANULOCYTES 0.3 % (0-5); LYMPHOCYTES 25.4 % (15-50); MCH 26.4 pg (26.0-34.0); MCHC 31.9 g/dL (31.0-37.0); MCV 82.5 fL (80.0-100.0); MEAN PLATELET VOLUME 8.5 fL (7.4-10.4); NEUTROPHILS 69.9 % (40-80); PLATELET COUNT 488 10x3/uL (130-400); RBC 3.49 10x6/uL (4.00-5.40); RDW 15.9 % (11.5-14.5); WBC 13.2 10x3/uL (4.8-10.8)
[2017-07-04 04:46] LABS: CALC OSMOLALITY 269 mosm/kg (275-300); CALCIUM 8.5 mg/dL (8.5-10.1); CARBON DIOXIDE 26.3 mmol/L (21.0-32.0); CHLORIDE - SERUM 102 mmol/L (98-107); CREATININE - SERUM 0.7 mg/dL (0.6-1.3); GLUCOSE 95 mg/dL (74-106); POTASSIUM - SERUM 4.9 mmol/L (3.5-5.1); SODIUM 135 mmol/L (136-145); eGFR NON AFRICAN AMERICAN > 90 mL/min (90-120)
[2017-07-04 05:00] VITALS: BP 122/90
[2017-07-04 05:03] LABS: UREA NITROGEN 12 mg/dL (7-18)
[2017-07-04 08:37] VITALS: BP 115/76
[2017-07-04 12:35] VITALS: BP 113/81
[2017-07-04 15:34] VITALS: BP 108/66
[2017-07-04 20:00] VITALS: BP 112/72
[2017-07-05 04:00] VITALS: BP 84/51
[2017-07-05 07:13] VITALS: BP 129/78
[2017-07-05 07:28] LABS: BASOPHILS 0.2 % (0-2); EOSINOPHILS 0.7 % (0-7); HEMATOCRIT 26.2 % (36.0-48.0); HEMOGLOBIN 8.3 g/dL (12-16); IMMATURE GRANULOCYTES 0.3 % (0-5); LYMPHOCYTES 40.5 % (15-50); MCH 26.1 pg (26.0-34.0); MCHC 31.7 g/dL (31.0-37.0); MCV 82.4 fL (80.0-100.0); MEAN PLATELET VOLUME 8.7 fL (7.4-10.4); MONOCYTES 4.4 % (2-11); NEUTROPHILS 53.9 % (40-80); PLATELET COUNT 520 10x3/uL (130-400); RBC 3.18 10x6/uL (4.00-5.40); RDW 15.8 % (11.5-14.5)
[2017-07-05 07:33] LABS: WBC 8.8 10x3/uL (4.8-10.8)
[2017-07-05 07:49] LABS: ALBUMIN 1.9 g/dL (3.4-5.0); ALKALINE PHOSPHATASE 125 U/L (46-116); ALT (SGPT) 16 U/L (10-68); BILIRUBIN - TOTAL 0.07 mg/dL (0.2-1.3); CALC OSMOLALITY 276 mosm/kg (275-300); CALCIUM 9.1 mg/dL (8.5-10.1); CHLORIDE - SERUM 105 mmol/L (98-107); CREATININE - SERUM 0.7 mg/dL (0.6-1.3); GLUCOSE 178 mg/dL (74-106); POTASSIUM - SERUM 4.9 mmol/L (3.5-5.1); PROTEIN - SERUM 7.8 g/dL (6.4-8.2); SODIUM 136 mmol/L (136-145); UREA NITROGEN 14 mg/dL (7-18); eGFR NON AFRICAN AMERICAN > 90 mL/min (90-120)
[2017-07-05 11:02] VITALS: BP 123/79
[2017-07-05 15:04] VITALS: BP 134/85
[2017-07-05 19:30] VITALS: BP 107/75
[2017-07-06 00:02] VITALS: BP 140/97
[2017-07-06 03:58] VITALS: BP 135/88
[2017-07-06 06:26] LABS: BASOPHILS 0.3 % (0-2); EOSINOPHILS 0.6 % (0-7); HEMATOCRIT 28.6 % (36.0-48.0); HEMOGLOBIN 9.1 g/dL (12-16); IMMATURE GRANULOCYTES 0.5 % (0-5); LYMPHOCYTES 36.3 % (15-50); MCHC 31.8 g/dL (31.0-37.0); MCV 81.7 fL (80.0-100.0); MEAN PLATELET VOLUME 8.6 fL (7.4-10.4); MONOCYTES 4.4 % (2-11); NEUTROPHILS 57.9 % (40-80); PLATELET COUNT 540 10x3/uL (130-400); RDW 15.8 % (11.5-14.5); WBC 7.9 10x3/uL (4.8-10.8)
[2017-07-06 06:51] LABS: ALBUMIN 1.8 g/dL (3.4-5.0); ALKALINE PHOSPHATASE 153 U/L (46-116); AMYLASE - SERUM 111 U/L (25-115); CALC OSMOLALITY 268 mosm/kg (275-300); CALCIUM 8.8 mg/dL (8.5-10.1); CARBON DIOXIDE 23.4 mmol/L (21.0-32.0); CHLORIDE - SERUM 102 mmol/L (98-107); CREATININE - SERUM 0.8 mg/dL (0.6-1.3); GLUCOSE 177 mg/dL (74-106); LIPASE 140 U/L (73-393); MAGNESIUM - SERUM 1.3 mg/dL (1.8-2.4); PHOSPHOROUS 3.7 mg/dL (2.5-4.9); POTASSIUM - SERUM 4.6 mmol/L (3.5-5.1); PROTEIN - SERUM 7.9 g/dL (6.4-8.2); SODIUM 132 mmol/L (136-145); THYROID STIMULATING HORMONE 0.89 uIU/mL (0.36-3.74); UREA NITROGEN 12 mg/dL (7-18); eGFR NON AFRICAN AMERICAN 89 mL/min (90-120)
[2017-07-06 06:53] LABS: ALT (SGPT) 55 U/L (10-68); BILIRUBIN - TOTAL 0.08 mg/dL (0.2-1.3)
[2017-07-06 09:32] VITALS: BP 106/69
[2017-07-06 13:27] VITALS: BP 102/70
[2017-07-06 16:41] VITALS: BP 113/84
[2017-07-06 23:00] VITALS: BP 116/77
[2017-07-07 05:00] VITALS: BP 119/84
[2017-07-07 06:50] LABS: BASOPHILS 0.2 % (0-2); EOSINOPHILS 1.1 % (0-7); HEMATOCRIT 28.3 % (36.0-48.0); IMMATURE GRANULOCYTES 0.2 % (0-5); LYMPHOCYTES 36.6 % (15-50); MCH 26.2 pg (26.0-34.0); MCHC 31.8 g/dL (31.0-37.0); MCV 82.5 fL (80.0-100.0); MONOCYTES 5.7 % (2-11); NEUTROPHILS 56.2 % (40-80); PLATELET COUNT 555 10x3/uL (130-400); RBC 3.43 10x6/uL (4.00-5.40); RDW 15.9 % (11.5-14.5); WBC 8.1 10x3/uL (4.8-10.8)
[2017-07-07 07:10] LABS: ALKALINE PHOSPHATASE 218 U/L (46-116); CARBON DIOXIDE 22.2 mmol/L (21.0-32.0); CHLORIDE - SERUM 102 mmol/L (98-107); CREATININE - SERUM 0.9 mg/dL (0.6-1.3); POTASSIUM - SERUM 5.1 mmol/L (3.5-5.1); PROTEIN - SERUM 8.1 g/dL (6.4-8.2); SODIUM 131 mmol/L (136-145); UREA NITROGEN 12 mg/dL (7-18); eGFR NON AFRICAN AMERICAN 78 mL/min (90-120)
[2017-07-07 07:13] LABS: ALT (SGPT) 72 U/L (10-68); CALC OSMOLALITY 273 mosm/kg (275-300); GLUCOSE 289 mg/dL (74-106)
[2017-07-07 07:56] VITALS: BP 117/72
[2017-07-07 12:23] VITALS: BP 115/67
[2017-07-07 16:00] VITALS: BP 141/103
[2017-07-08 02:00] VITALS: BP 102/67
[2017-07-08 07:44] LABS: BASOPHILS 0.1 % (0-2); EOSINOPHILS 1.1 % (0-7); IMMATURE GRANULOCYTES 0.8 % (0-5); LYMPHOCYTES 42.7 % (15-50); MCH 26.3 pg (26.0-34.0); MCHC 31.6 g/dL (31.0-37.0); MCV 83.4 fL (80.0-100.0); NEUTROPHILS 49.3 % (40-80); PLATELET COUNT 445 10x3/uL (130-400); RDW 16.1 % (11.5-14.5)
[2017-07-08 07:49] LABS: HEMATOCRIT 36.1 % (36.0-48.0); HEMOGLOBIN 11.4 g/dL (12-16); RBC 4.33 10x6/uL (4.00-5.40)
[2017-07-08 07:55] LABS: ALBUMIN 2.2 g/dL (3.4-5.0); ALKALINE PHOSPHATASE 232 U/L (46-116); ALT (SGPT) 62 U/L (10-68); CALCIUM 9.4 mg/dL (8.5-10.1); CARBON DIOXIDE 21.3 mmol/L (21.0-32.0); CHLORIDE - SERUM 101 mmol/L (98-107); CREATININE - SERUM 0.7 mg/dL (0.6-1.3); POTASSIUM - SERUM 5.1 mmol/L (3.5-5.1); PROTEIN - SERUM 8.1 g/dL (6.4-8.2); SODIUM 132 mmol/L (136-145); eGFR NON AFRICAN AMERICAN > 90 mL/min (90-120)
[2017-07-08 07:57] LABS: BILIRUBIN - TOTAL 0.04 mg/dL (0.2-1.3); CALC OSMOLALITY 273 mosm/kg (275-300); GLUCOSE 187 mg/dL (74-106); UREA NITROGEN 24 mg/dL (7-18)
[2017-07-08 08:20] VITALS: BP 101/70
[2017-07-08 12:26] VITALS: BP 120/87
[2017-07-08 16:14] VITALS: BP 114/83
[2017-07-08 20:00] VITALS: BP 124/88
[2017-07-09] VITALS: BP 123/81
[2017-07-09 04:00] VITALS: BP 146/54
[2017-07-09 06:23] LABS: BASOPHILS 0.3 % (0-2); HEMATOCRIT 29.6 % (36.0-48.0); HEMOGLOBIN 9.4 g/dL (12-16); IMMATURE GRANULOCYTES 0.6 % (0-5); LYMPHOCYTES 44.6 % (15-50); MCH 26.5 pg (26.0-34.0); MCHC 31.8 g/dL (31.0-37.0); MCV 83.4 fL (80.0-100.0); MEAN PLATELET VOLUME 8.9 fL (7.4-10.4); MONOCYTES 8.2 % (2-11); NEUTROPHILS 44.3 % (40-80); PLATELET COUNT 569 10x3/uL (130-400); RBC 3.55 10x6/uL (4.00-5.40); RDW 16.4 % (11.5-14.5)
[2017-07-09 06:53] LABS: ALBUMIN 2.1 g/dL (3.4-5.0); ALKALINE PHOSPHATASE 197 U/L (46-116); ALT (SGPT) 74 U/L (10-68); BILIRUBIN - TOTAL 0.17 mg/dL (0.2-1.3); CALCIUM 8.8 mg/dL (8.5-10.1); CHLORIDE - SERUM 103 mmol/L (98-107); CREATININE - SERUM 0.8 mg/dL (0.6-1.3); GLUCOSE 231 mg/dL (74-106); PROTEIN - SERUM 8.1 g/dL (6.4-8.2); SODIUM 134 mmol/L (136-145); eGFR NON AFRICAN AMERICAN 89 mL/min (90-120)
[2017-07-09 07:03] LABS: CALC OSMOLALITY 275 mosm/kg (275-300); POTASSIUM - SERUM 3.9 mmol/L (3.5-5.1); UREA NITROGEN 15 mg/dL (7-18)
[2017-07-09 11:56] VITALS: BP 111/78
[2017-07-09 15:52] VITALS: BP 118/89
[2017-07-09 20:00] VITALS: BP 114/77
[2017-07-10] VITALS: BP 111/75
[2017-07-10 03:52] VITALS: BP 101/72
[2017-07-10 05:00] VITALS: BP 105/66
[2017-07-10 07:14] VITALS: BP 95/69
[2017-07-10 09:19] LABS: BASOPHILS 0.3 % (0-2); EOSINOPHILS 2.1 % (0-7); HEMATOCRIT 29.9 % (36.0-48.0); HEMOGLOBIN 9.5 g/dL (12-16); IMMATURE GRANULOCYTES 0.5 % (0-5); LYMPHOCYTES 38.2 % (15-50); MCH 26.2 pg (26.0-34.0); MCHC 31.8 g/dL (31.0-37.0); MCV 82.6 fL (80.0-100.0); MONOCYTES 8.9 % (2-11); PLATELET COUNT 592 10x3/uL (130-400); RBC 3.62 10x6/uL (4.00-5.40); RDW 16.1 % (11.5-14.5); WBC 7.7 10x3/uL (4.8-10.8)
[2017-07-10 09:48] LABS: ALBUMIN 2.3 g/dL (3.4-5.0); ALKALINE PHOSPHATASE 197 U/L (46-116); ALT (SGPT) 95 U/L (10-68); BILIRUBIN - TOTAL 0.13 mg/dL (0.2-1.3); CALC OSMOLALITY 272 mosm/kg (275-300); CALCIUM 9.5 mg/dL (8.5-10.1); CARBON DIOXIDE 20.3 mmol/L (21.0-32.0); CHLORIDE - SERUM 102 mmol/L (98-107); CREATININE - SERUM 0.7 mg/dL (0.6-1.3); GLUCOSE 162 mg/dL (74-106); POTASSIUM - SERUM 3.9 mmol/L (3.5-5.1); PROTEIN - SERUM 8.6 g/dL (6.4-8.2); SODIUM 134 mmol/L (136-145); UREA NITROGEN 15 mg/dL (7-18); eGFR NON AFRICAN AMERICAN > 90 mL/min (90-120)
[2017-07-10 11:07] VITALS: BP 107/73
[2017-07-10 22:00] VITALS: BP 113/70
[2017-07-11 06:44] LABS: BASOPHILS 0.1 % (0-2); EOSINOPHILS 2.5 % (0-7); HEMATOCRIT 30.1 % (36.0-48.0); HEMOGLOBIN 9.6 g/dL (12-16); IMMATURE GRANULOCYTES 0.6 % (0-5); LYMPHOCYTES 40.9 % (15-50); MCH 26.1 pg (26.0-34.0); MCHC 31.9 g/dL (31.0-37.0); MCV 81.8 fL (80.0-100.0); MEAN PLATELET VOLUME 8.8 fL (7.4-10.4); MONOCYTES 10.6 % (2-11); NEUTROPHILS 45.3 % (40-80); PLATELET COUNT 582 10x3/uL (130-400); RBC 3.68 10x6/uL (4.00-5.40); RDW 16.1 % (11.5-14.5); WBC 7.3 10x3/uL (4.8-10.8)
[2017-07-11 07:21] LABS: ALBUMIN 2.4 g/dL (3.4-5.0); ALKALINE PHOSPHATASE 189 U/L (46-116); ALT (SGPT) 77 U/L (10-68); BILIRUBIN - TOTAL 0.18 mg/dL (0.2-1.3); CALCIUM 9.4 mg/dL (8.5-10.1); CARBON DIOXIDE 19.9 mmol/L (21.0-32.0); CHLORIDE - SERUM 103 mmol/L (98-107); CREATININE - SERUM 0.6 mg/dL (0.6-1.3); POTASSIUM - SERUM 3.8 mmol/L (3.5-5.1); PROTEIN - SERUM 8.8 g/dL (6.4-8.2); SODIUM 136 mmol/L (136-145); UREA NITROGEN 16 mg/dL (7-18); eGFR NON AFRICAN AMERICAN > 90 mL/min (90-120)
[2017-07-11 07:24] LABS: CALC OSMOLALITY 270 mosm/kg (275-300); GLUCOSE 64 mg/dL (74-106)
[2017-07-11 07:28] VITALS: BP 118/80
[2017-07-11 11:04] VITALS: BP 144/103
[2017-07-11 20:00] VITALS: BP 121/58
[2017-07-12 08:07] LABS: BASOPHILS 0.1 % (0-2); EOSINOPHILS 2.9 % (0-7); HEMATOCRIT 31.3 % (36.0-48.0); HEMOGLOBIN 10.1 g/dL (12-16); IMMATURE GRANULOCYTES 0.3 % (0-5); LYMPHOCYTES 39.3 % (15-50); MCH 26.4 pg (26.0-34.0); MCHC 32.3 g/dL (31.0-37.0); MCV 81.9 fL (80.0-100.0); MEAN PLATELET VOLUME 8.7 fL (7.4-10.4); NEUTROPHILS 49.4 % (40-80); PLATELET COUNT 604 10x3/uL (130-400); RBC 3.82 10x6/uL (4.00-5.40); RDW 16.1 % (11.5-14.5)
[2017-07-12 08:51] VITALS: BP 119/80
[2017-07-12 08:55] LABS: ALBUMIN 2.5 g/dL (3.4-5.0); ALKALINE PHOSPHATASE 184 U/L (46-116); BILIRUBIN - TOTAL 0.14 mg/dL (0.2-1.3); CALCIUM 9.9 mg/dL (8.5-10.1); CARBON DIOXIDE 20.9 mmol/L (21.0-32.0); CHLORIDE - SERUM 102 mmol/L (98-107); CREATININE - SERUM 0.6 mg/dL (0.6-1.3); POTASSIUM - SERUM 4.2 mmol/L (3.5-5.1); PROTEIN - SERUM 9.2 g/dL (6.4-8.2); SODIUM 135 mmol/L (136-145); UREA NITROGEN 12 mg/dL (7-18); eGFR NON AFRICAN AMERICAN > 90 mL/min (90-120)
[2017-07-12 08:56] LABS: ALT (SGPT) 57 U/L (10-68); CALC OSMOLALITY 273 mosm/kg (275-300); GLUCOSE 164 mg/dL (74-106)
[2017-07-12 12:20] VITALS: BP 109/71
[2017-07-12 16:03] VITALS: BP 125/78
[2017-07-12 20:00] VITALS: BP 116/83
[2017-07-13] VITALS: BP 108/78
[2017-07-13 04:00] VITALS: BP 117/83
[2017-07-13 07:01] LABS: BASOPHILS 0.3 % (0-2); EOSINOPHILS 3.2 % (0-7); HEMATOCRIT 31.1 % (36.0-48.0); HEMOGLOBIN 10.1 g/dL (12-16); IMMATURE GRANULOCYTES 0.4 % (0-5); LYMPHOCYTES 36.9 % (15-50); MCH 26.5 pg (26.0-34.0); MCHC 32.5 g/dL (31.0-37.0); MCV 81.6 fL (80.0-100.0); MONOCYTES 7.5 % (2-11); NEUTROPHILS 51.7 % (40-80); PLATELET COUNT 645 10x3/uL (130-400); RBC 3.81 10x6/uL (4.00-5.40); RDW 16.2 % (11.5-14.5); WBC 7.9 10x3/uL (4.8-10.8)
[2017-07-13 07:29] LABS: ALBUMIN 2.6 g/dL (3.4-5.0); ALKALINE PHOSPHATASE 181 U/L (46-116); ALT (SGPT) 51 U/L (10-68); BILIRUBIN - TOTAL 0.18 mg/dL (0.2-1.3); CALC OSMOLALITY 273 mosm/kg (275-300); CARBON DIOXIDE 21.6 mmol/L (21.0-32.0); CHLORIDE - SERUM 101 mmol/L (98-107); CREATININE - SERUM 0.6 mg/dL (0.6-1.3); GLUCOSE 162 mg/dL (74-106); POTASSIUM - SERUM 4.1 mmol/L (3.5-5.1); PROTEIN - SERUM 9.2 g/dL (6.4-8.2); SODIUM 135 mmol/L (136-145); UREA NITROGEN 13 mg/dL (7-18); eGFR NON AFRICAN AMERICAN > 90 mL/min (90-120)
[2017-07-13 08:30] VITALS: BP 118/78
[2017-07-13 12:16] VITALS: BP 110/69
[2017-07-13 20:00] VITALS: BP 110/76
[2017-07-14] VITALS: BP 113/76
[2017-07-14 04:00] VITALS: BP 130/95
[2017-07-14 06:10] LABS: BASOPHILS 0.2 % (0-2); HEMATOCRIT 29.9 % (36.0-48.0); HEMOGLOBIN 9.8 g/dL (12-16); IMMATURE GRANULOCYTES 0.2 % (0-5); LYMPHOCYTES 38.8 % (15-50); MCH 26.3 pg (26.0-34.0); MCHC 32.8 g/dL (31.0-37.0); MCV 80.4 fL (80.0-100.0); MONOCYTES 7.2 % (2-11); NEUTROPHILS 49.6 % (40-80); PLATELET COUNT 663 10x3/uL (130-400); RBC 3.72 10x6/uL (4.00-5.40); RDW 15.7 % (11.5-14.5); WBC 8.6 10x3/uL (4.8-10.8)
[2017-07-14 06:47] LABS: ALBUMIN 2.6 g/dL (3.4-5.0); ALKALINE PHOSPHATASE 165 U/L (46-116); ALT (SGPT) 41 U/L (10-68); BILIRUBIN - TOTAL 0.16 mg/dL (0.2-1.3); CALC OSMOLALITY 272 mosm/kg (275-300); CARBON DIOXIDE 21.5 mmol/L (21.0-32.0); CHLORIDE - SERUM 101 mmol/L (98-107); CREATININE - SERUM 0.6 mg/dL (0.6-1.3); GLUCOSE 155 mg/dL (74-106); POTASSIUM - SERUM 3.8 mmol/L (3.5-5.1); PROTEIN - SERUM 9.1 g/dL (6.4-8.2); SODIUM 135 mmol/L (136-145); UREA NITROGEN 12 mg/dL (7-18); eGFR NON AFRICAN AMERICAN > 90 mL/min (90-120)
[2017-07-14 09:06] VITALS: BP 124/83
[2017-07-14 13:19] VITALS: BP 130/90
[2017-07-14 16:50] VITALS: BP 119/73
[2017-07-14 21:41] VITALS: BP 125/85
[2017-07-15 01:13] VITALS: BP 120/76
[2017-07-15 04:00] VITALS: BP 105/48
[2017-07-15 08:53] VITALS: BP 103/70
[2017-07-15 11:29] LABS: HCG URINE NEGATIVE (NEGATIVE)
[2017-07-15 12:09] VITALS: BP 105/78
[2017-07-15 12:24] VITALS: BP 109/88
[2017-07-15] MEDS ORDERED: QUESTRAN PACK4 G/PKT PO (14:23)
[2017-07-15] MEDS ORDERED: LEVSIN/ANASP0.125 MG SL (14:23)
[2017-07-15] MEDS ORDERED: FLORAJEN3 CAPS460 MG PO (14:26)
[2017-07-15] MEDS ORDERED: SODIUM BICARBO650 MG PO (14:27)
[2017-07-15] MEDS ORDERED: FLORASTOR250 MG PO (14:27)
[2017-07-15] MEDS ORDERED: OCTREOTIDE50 MCG/1 M SQ (14:28)
[2017-07-17 14:12] LABS: SPE - A/G RATIO 0.5 (0.7-1.7); SPE - ALPHA-1 GLOBULIN 0.3 g/dL (0.0-0.4); SPE - ALPHA-2 GLOBULIN 1.2 g/dL (0.4-1.0); SPE - BETA GLOBULIN 1.3 g/dL (0.7-1.3); SPE - GAMMA GLOBULIN 2.6 g/dL (0.4-1.8); SPE - M-SPIKE Not Observed g/dL (Not Observed); SPE - TOTAL PROTEIN 8.5 g/dL (6.0-8.5)
[2017-07-20 05:13] LABS: 5HIAA - 24HR 2.5 mg/24 hr (0.0-14.9); 5HIAA - UR 1.9 mg/L (Undefined)
== END 2017-07-15 16:58 | disposition home health service (06) | DRG 637 ==
LOC: D.ER 14:33 → D.ICU 17:50 → D.MS 17:50
PROVIDERS: Emergency Medicine; Family Medicine; Internal Medicine Gastroenterology; Internal Medicine Nephrology; Internal Medicine Pulmonary Disease
PROC: 0T9B70Z Drainage of Bladder with Drainage Device, Via Natural or Artificial Opening (ICD-10-PCS; principal; 2017-06-21)
PROC: 0TCB8ZZ Extirpation of Matter from Bladder, Via Natural or Artificial Opening Endoscopic (ICD-10-PCS; 2017-06-24)
PROC: 0DBK8ZX Excision of Ascending Colon, Via Natural or Artificial Opening Endoscopic, Diagnostic (ICD-10-PCS; 2017-07-15)
PROC: 0DBL8ZX Excision of Transverse Colon, Via Natural or Artificial Opening Endoscopic, Diagnostic (ICD-10-PCS; 2017-07-15)
DX: E10.10 Type 1 diabetes mellitus with ketoacidosis without coma (principal); J15.5 Pneumonia due to Escherichia coli; E43 Unspecified severe protein-calorie malnutrition; F17.203 Nicotine dependence unspecified, with withdrawal; N17.9 Acute kidney failure, unspecified; E87.1 Hypo-osmolality and hyponatremia; E87.2 Acidosis; B49 Unspecified mycosis; Z68.1 Body mass index [BMI] 19.9 or less, adult; A04.72 Enterocolitis due to Clostridium difficile, not specified as recurrent; N30.91 Cystitis, unspecified with hematuria; Z79.4 Long term (current) use of insulin; E10.22 Type 1 diabetes mellitus with diabetic chronic kidney disease; N18.9 Chronic kidney disease, unspecified; Z93.3 Colostomy status; N31.9 Neuromuscular dysfunction of bladder, unspecified; F14.10 Cocaine abuse, uncomplicated; E10.40 Type 1 diabetes mellitus with diabetic neuropathy, unspecified; N32.89 Other specified disorders of bladder; D50.9 Iron deficiency anemia, unspecified; B37.3 Candidiasis of vulva and vagina; E87.6 Hypokalemia; E10.649 Type 1 diabetes mellitus with hypoglycemia without coma; E83.42 Hypomagnesemia; R91.1 Solitary pulmonary nodule

== ENCOUNTER 2018-01-21 15:17 | Emergency (ER) | payer MEDICAID ==
[~2018-01-21] VITALS: Ht 165.1 cm; Wt 43.6 kg
[~2018-01-21 15:17] MED LIST changes: +FLORAJEN3 CAPS460 MG PO; +FLORASTOR250 MG PO; +LEVSIN/ANASP0.125 MG SL; +OCTREOTIDE50 MCG/1 M SQ; +QUESTRAN PACK4 G/PKT PO; +SODIUM BICARBO650 MG PO
[2018-01-21 15:23] VITALS: Ht 165.1 cm; Wt 43.6 kg
[2018-01-21 17:09] VITALS: BP 110/79
== END 2018-01-21 17:10 | disposition home or self-care (01) ==
LOC: D.ER 15:17
DX: Z48.89 Encounter for other specified surgical aftercare (principal); L89.153 Pressure ulcer of sacral region, stage 3; E11.9 Type 2 diabetes mellitus without complications; Z93.3 Colostomy status

== ENCOUNTER 2018-01-29 18:09 | Emergency (ER) | payer MEDICAID ==
[~2018-01-29] VITALS: Ht 165.1 cm; Wt 42.7 kg
[2018-01-29 19:23] VITALS: Ht 165.1 cm; Wt 42.7 kg
[2018-01-29] MEDS ORDERED: GABAPENTIN100 MG (19:33)
[2018-01-29 22:20] VITALS: BP 123/67
== END 2018-01-29 22:21 | disposition home or self-care (01) ==
LOC: D.ER 18:09
DX: Z43.3 Encounter for attention to colostomy (principal); L89.153 Pressure ulcer of sacral region, stage 3; E11.9 Type 2 diabetes mellitus without complications

== ENCOUNTER 2018-02-02 19:17 | Emergency (ER) | payer MEDICAID ==
[~2018-02-02] VITALS: Ht 165.1 cm; Wt 42.6 kg
[~2018-02-02 19:17] MED LIST changes: +GABAPENTIN100 MG
[2018-02-02 19:25] VITALS: Ht 165.1 cm; Wt 42.6 kg
[2018-02-02] MEDS ORDERED: HYDROCODONE-APA1 TAB PO (20:21)
[2018-02-02 20:35] VITALS: BP 104/64
== END 2018-02-02 20:35 | disposition home or self-care (01) ==
LOC: D.ER 19:17
DX: Z43.3 Encounter for attention to colostomy (principal); E11.9 Type 2 diabetes mellitus without complications

== ENCOUNTER 2018-02-10 18:01 | Emergency (ER) | payer MEDICAID ==
[~2018-02-10] VITALS: Ht 165.1 cm; Wt 43.8 kg
[2018-02-10 18:14] VITALS: Ht 165.1 cm; Wt 43.8 kg
[2018-02-10] MEDS ORDERED: VOLTAREN75 MG PO (18:58)
[2018-02-10] MEDS ORDERED: VIBRAMYCIN 100100 MG PO (18:58)
[2018-02-10 20:36] VITALS: BP 97/71
== END 2018-02-10 19:25 | disposition home or self-care (01) ==
LOC: D.ER 18:01
DX: L89.103 Pressure ulcer of unspecified part of back, stage 3 (principal); Z93.3 Colostomy status; E11.9 Type 2 diabetes mellitus without complications; L98.492 Non-pressure chronic ulcer of skin of other sites with fat layer exposed

== ENCOUNTER 2018-11-23 20:38 | Emergency (ER) | payer MEDICAID ==
[~2018-11-23] VITALS: Ht 165.1 cm; Wt 48.6 kg
[~2018-11-23 20:38] MED LIST changes: +VIBRAMYCIN 100100 MG PO; +VOLTAREN75 MG PO
[2018-11-23 20:50] VITALS: BP 115/75; Ht 165.1 cm; Wt 48.6 kg
[2018-11-23 21:28] LABS: BASOPHILS 0.1 % (0-2); EOSINOPHILS 1.1 % (0-7); HEMATOCRIT 37.2 % (36.0-48.0); HEMOGLOBIN 13.2 g/dL (12-16); IMMATURE GRANULOCYTES 0.3 % (0-5); LYMPHOCYTES 24.2 % (15-50); MCH 27.4 pg (26.0-34.0); MCHC 35.5 g/dL (31.0-37.0); MCV 77.3 fL (80.0-100.0); MEAN PLATELET VOLUME 9.9 fL (7.4-10.4); MONOCYTES 5.6 % (2-11); NEUTROPHILS 68.7 % (40-80); RBC 4.81 10x6/uL (4.00-5.40); RDW 13.9 % (11.5-14.5); WBC 9.2 10x3/uL (4.8-10.8)
[2018-11-23 21:48] LABS: ALBUMIN 3.1 g/dL (3.4-5.0); ALKALINE PHOSPHATASE 134 U/L (46-116); ALT (SGPT) 8 U/L (10-68); BILIRUBIN - TOTAL 0.31 mg/dL (0.2-1.3); CALC OSMOLALITY 271 mosm/kg (275-300); CALCIUM 8.6 mg/dL (8.5-10.1); CARBON DIOXIDE 18.4 mmol/L (21.0-32.0); CHLORIDE - SERUM 95 mmol/L (98-107); CREATININE - SERUM 0.8 mg/dL (0.6-1.3); GLUCOSE 392 mg/dL (74-106); PLATELET COUNT 226 10x3/uL (130-400); PROTEIN - SERUM 7.7 g/dL (6.4-8.2); SODIUM 128 mmol/L (136-145); UREA NITROGEN 9 mg/dL (7-18); eGFR NON AFRICAN AMERICAN 89 mL/min (90-120)
[2018-11-23 21:49] LABS: POTASSIUM - SERUM 2.5 mmol/L (3.5-5.1)
== END 2018-11-23 23:04 | disposition home or self-care (01) ==
LOC: D.ER 20:38
PROVIDERS: Family Medicine
DX: L02.412 Cutaneous abscess of left axilla (principal)

== ENCOUNTER 2019-06-07 17:42 | Inpatient (IN) | payer MEDICAID ==
[~2019-06-07] VITALS: Ht 165.1 cm; Wt 45.4 kg
--- NOTE | 2019-06-07 17:52 | NUR ---
PT HAS COLOSTOMY IN LLQ. STATES HAS A SORE ON BOTTOM THAT NEEDS TIME TO HEAL, PLAN TO REVERSE AT SOME POINT IN FUTURE.
[2019-06-07 18:19] LABS: APPEARANCE CLEAR (CLEAR); BACTERIA FEW /hpf (NEGATIVE); BILIRUBIN NEGATIVE (NEGATIVE); COLOR YELLOW (YELLOW); EPITHELIAL CELLS 0-5 /hpf (0-5); GLUCOSE 250 mg/dL (NEGATIVE); KETONE NEGATIVE (NEGATIVE); NITRITE NEGATIVE (NEGATIVE); PROTEIN 1+ mg/dL (NEGATIVE); RED CELLS - URINE 25-50 /hpf (0-5); UROBILINOGEN NORMAL (NORMAL); WHITE CELLS - URINE >50 /hpf (NEGATIVE)
[2019-06-07 18:25] LABS: BASOPHILS 0.1 % (0-2); EOSINOPHILS 1.9 % (0-7); HEMATOCRIT 40.9 % (36.0-48.0); HEMOGLOBIN 13.3 g/dL (12-16); IMMATURE GRANULOCYTES 0.3 % (0-5); LYMPHOCYTES 40.1 % (15-50); MCH 27.8 pg (26.0-34.0); MCHC 32.5 g/dL (31.0-37.0); MCV 85.6 fL (80.0-100.0); MEAN PLATELET VOLUME 9.2 fL (7.4-10.4); MONOCYTES 5.3 % (2-11); NEUTROPHILS 52.3 % (40-80); PLATELET COUNT 428 10x3/uL (130-400); RBC 4.78 10x6/uL (4.00-5.40); RDW 16.8 % (11.5-14.5); WBC 7.7 10x3/uL (4.8-10.8)
[2019-06-07 18:31] LABS: CALC OSMOLALITY 272 mosm/kg (275-300); CALCIUM 9.4 mg/dL (8.5-10.1); CARBON DIOXIDE 23.7 mmol/L (21.0-32.0); CHLORIDE - SERUM 100 mmol/L (98-107); CREATININE - SERUM 0.8 mg/dL (0.6-1.3); POTASSIUM - SERUM 3.8 mmol/L (3.5-5.1); SODIUM 134 mmol/L (136-145); UREA NITROGEN 15 mg/dL (7-18); eGFR NON AFRICAN AMERICAN 88 mL/min (90-120)
[2019-06-07 18:33] LABS: GLUCOSE 168 mg/dL (74-106)
[2019-06-07 18:40] LABS: ALBUMIN 3.3 g/dL (3.4-5.0); ALKALINE PHOSPHATASE 116 U/L (46-116); ALT (SGPT) 18 U/L (10-68); AMYLASE - SERUM 70 U/L (25-115); BILIRUBIN - TOTAL 0.21 mg/dL (0.2-1.3); LIPASE 69 U/L (73-393); PROTEIN - SERUM 9.6 g/dL (6.4-8.2)
--- NOTE | 2019-06-07 18:42 | NUR ---
SACRAL STAGE 3 DECUB CLEANSED WITH WOUND CLEANSER, DRIED AND DRY FOAM ISLAND DRSG APPLIED. WOUND MEASURES 5 CM X 3 CM WITH TUNNELING NOTED @ 1200 TO 1400 AT APPROX 3 CM
[2019-06-07 18:43] LABS: TROPONIN-I < 0.017 ng/mL (0.000-0.060)
[2019-06-07 18:47] VITALS: BP 116/81
--- NOTE | 2019-06-07 19:07 | NUR ---
BS REPORT TO KIRK SCHWARTZ
[2019-06-07 19:36] LABS: KETONE - SERUM NEGATIVE (NEGATIVE)
[2019-06-07 19:40] LABS: MAGNESIUM - SERUM 2.3 mg/dL (1.8-2.4)
--- NOTE | 2019-06-07 19:58 | NUR ---
PT TO RADIOLOGY.
--- NOTE | 2019-06-07 20:32 | NUR ---
PT RETURNED FROM RADIOLOGY.
[2019-06-07 21:20] VITALS: BP 110/76
--- NOTE | 2019-06-07 21:34 | NUR ---
PT GIVEN WARM BLANKETS, DENIES ANY FURTHER NEEDS AT THIS TIME, CALL LIGHT WITHIN REACH, WILL CONTINUE TO MONITOR.
--- NOTE | 2019-06-07 23:31 | NUR ---
PT ARRIVED FROM ER VIA BED. PT TRANSFERRED SELF TO BED. DENIES NEEDS AT THIS TIME. IV IN LEFT AC WITH NS AT 50ML/HR. BED IN LOW SIDE RAILS X2. VITALS WNL. WILL CONTINUE TO MONITOR. CL IN REACH
[2019-06-08] VITALS (7 sets, daily range): BP systolic 141–174; BP diastolic 85–111; BMI 16.6
[2019-06-08 05:17] LABS: BASOPHILS 0.3 % (0-2); EOSINOPHILS 1.1 % (0-7); HEMATOCRIT 38.9 % (36.0-48.0); HEMOGLOBIN 12.6 g/dL (12-16); IMMATURE GRANULOCYTES 0.2 % (0-5); LYMPHOCYTES 41.4 % (15-50); MCH 27.8 pg (26.0-34.0); MCHC 32.4 g/dL (31.0-37.0); MCV 85.9 fL (80.0-100.0); MEAN PLATELET VOLUME 9.5 fL (7.4-10.4); PLATELET COUNT 420 10x3/uL (130-400); RBC 4.53 10x6/uL (4.00-5.40); RDW 16.7 % (11.5-14.5); WBC 6.6 10x3/uL (4.8-10.8)
[2019-06-08 05:39] LABS: CALC OSMOLALITY 280 mosm/kg (275-300); CALCIUM 8.8 mg/dL (8.5-10.1); CARBON DIOXIDE 23.1 mmol/L (21.0-32.0); CHLORIDE - SERUM 104 mmol/L (98-107); CREATININE - SERUM 0.9 mg/dL (0.6-1.3); GLUCOSE 171 mg/dL (74-106); MAGNESIUM - SERUM 2.2 mg/dL (1.8-2.4); PHOSPHOROUS 3.4 mg/dL (2.5-4.9); POTASSIUM - SERUM 3.6 mmol/L (3.5-5.1); SODIUM 138 mmol/L (136-145); UREA NITROGEN 15 mg/dL (7-18); eGFR NON AFRICAN AMERICAN 77 mL/min (90-120)
--- NOTE | 2019-06-08 17:32 | NUR ---
SUTURES FROM RIGHT HAND (FINGER AMPUTATION) REMOVED.
--- NOTE | 2019-06-08 20:20 | NUR ---
INITIAL ROUNDS COMPLETED AT 1910 HRS. PT RESTING WITH EYES CLOSED. RESP EVEN AND REGULAR. ASSESSMENT COMPLETED AT 1935 HRS. ALER AND ORIENTED TO PERSON,PLACE AND TIME. GONZALES. IV TO LAC AREAWITH NS AT 50CC/HR. IV PATENT. ARMBOARD IN USE. LUNGS ESSENTIALLY CTA. COLOSTOMY NOTED FULL OF GAS. COLOSTOMY BURPED. NUMEROUS HEALING SCABS NOTED TO FRONT OF BILAT LEGS FROM KNEES DOWN,. STAGE 4 TO R BUTTOCKS 5CM X3CM X3M. NO DRAINAGE NOTED. MEPILEX APPLIED. PM FSBS 146. NO COVERAGE NEEDED. SR UP X2, CALL LIGHT WTIHIN REACH.
--- NOTE | 2019-06-08 21:37 | NUR ---
PT RESTING WITH EYES CLOSED. RESP EVEN AND REGULAR. SR UP X1, CALL LIGHT WITHIN REACH.
--- NOTE | 2019-06-08 23:02 | NUR ---
MORPHINE 2MG SIVP GIVEN FOR C/O ABD PAIN. ZOFRAN 4MG SIVP GIVEN FOR C/O NAUSEA. CALL LIGHT WITHIN REACH.
--- NOTE | 2019-06-08 23:32 | NUR ---
PT STATES PAIN NOW 11/18. CALL LIGHT WITHIN REACH.
[2019-06-09] VITALS: BP 152/98
--- NOTE | 2019-06-09 01:32 | NUR ---
PT RESTING WITH EYES CLOSED. RESP EVEN AND REGULAR. SR UP X2, CALL LIGHT WITHIN REACH.
--- NOTE | 2019-06-09 01:50 | NUR ---
PT INCONTINENT OF URINE. BED LINENS CHANGED, HIBICLENS BATH GIVEN. PT TOLERATED ACTIVITY WELL.
--- NOTE | 2019-06-09 03:17 | NUR ---
PT RESTING WITH EYES CLOSED. RESP EVEN AND REGULAR. SR UP X2, CALL LIGHT WITHIN REACH.
[2019-06-09 04:00] VITALS: BP 146/97
--- NOTE | 2019-06-09 04:18 | NUR ---
MORPHINE 2MG, ZOFRAN 4MG SIVP GIVEN FOR C/O ABD PAIN AND NAUSEA. CALL LIGHT WITHIN REACH.
[2019-06-09 04:30] LABS: BASOPHILS 0.4 % (0-2); EOSINOPHILS 2.5 % (0-7); HEMATOCRIT 37.5 % (36.0-48.0); HEMOGLOBIN 12.2 g/dL (12-16); IMMATURE GRANULOCYTES 0.2 % (0-5); LYMPHOCYTES 47.7 % (15-50); MCH 27.8 pg (26.0-34.0); MCHC 32.5 g/dL (31.0-37.0); MCV 85.4 fL (80.0-100.0); NEUTROPHILS 44.2 % (40-80); PLATELET COUNT 376 10x3/uL (130-400); RBC 4.39 10x6/uL (4.00-5.40); RDW 16.6 % (11.5-14.5); WBC 5.6 10x3/uL (4.8-10.8)
[2019-06-09 04:46] LABS: CALC OSMOLALITY 278 mosm/kg (275-300); CALCIUM 8.5 mg/dL (8.5-10.1); CARBON DIOXIDE 24.1 mmol/L (21.0-32.0); CHLORIDE - SERUM 104 mmol/L (98-107); CREATININE - SERUM 0.7 mg/dL (0.6-1.3); GLUCOSE 179 mg/dL (74-106); MAGNESIUM - SERUM 2.2 mg/dL (1.8-2.4); PHOSPHOROUS 2.9 mg/dL (2.5-4.9); POTASSIUM - SERUM 3.9 mmol/L (3.5-5.1); SODIUM 137 mmol/L (136-145); UREA NITROGEN 14 mg/dL (7-18); eGFR NON AFRICAN AMERICAN > 90 mL/min (90-120)
--- NOTE | 2019-06-09 06:08 | NUR ---
VSS THROUGHOUT NIGHT. PT STATES MORPHINE AND ZOFRAN CONTROL HER ABD PAIN AND NAUSEA. NEEDS MET; WILL CONTINUE TO MONITOR.
[2019-06-09 08:55] VITALS: BP 145/99
--- NOTE | 2019-06-09 12:27 | MORECARE ---
CASE MANAGEMENT DISCHARGE SUMMARY PATIENT: SOFIA FONTENOT UNIT: [id number] ADM DATE: 06/07/19 AGE: 34 : [birth year] SEX: F ROOM/BED: D.2104 AUTHOR: JUAN PETERSEN PHYSICIAN: REFERRING PHYSICIAN: CAROLE JUAREZ MD DATE OF SERVICE: 06/09/19 Discharge Plan Patient Name: SOFIA FONTENOT Facility: [facility]:[place] : 1985 Planned Disposition: Home with Home Health Anticipated Discharge Date: 06/11/19 Discharge Date: Expected LOS: 4 Initial Reviewer: [email or web address] Initial Review Date: 06/09/2019 Generated: 06/09/19 1:26 pm DCPIA - Discharge Planning Initial Assessment Updated by [email or web address]: Kirill Ball on 06/09/19 12:25 pm * Is the patient Alert and Oriented? Yes * How many steps to enter\exit or inside your home? NONE * [facility] * Pharmacy [facility] [place] * Preadmission Environment Home with Family * ADLs Independent * Equipment Ostomy Supplies Walker * Other Equipment [employer] * List name and contact numbers for known caregivers / representatives who currently or will assist patient after discharge: DENNIS LEPE, FATHER, * Verbal permission to speak to the caregivers and representatives has been obtained from the patient. N/A * Community resources currently utilized None * Please name any agencies selected above. NONE * Additional services required to return to the preadmission environment? Yes * Can the patient safely return to the preadmission environment? Yes * Has this patient been hospitalized within the prior 30 days at any hospital? No Patient Name: SOFIA FONTENOT Page 10588 at 1227 All edits/amendments must be made on the electronic document DICTATION DATE: 06/09/191225 R&D LAB TECHNICIAN: MARISSA 06/09/196 RPT#: [id number] DC DATE: STATUS: ADM IN [facility] [address] [place] [address] END OF REPORT
--- NOTE | 2019-06-09 12:34 | MORECARE ---
CASE MANAGEMENT DISCHARGE SUMMARY PATIENT: SOFIA FONTENOT UNIT: [id number] ADM DATE: 06/07/19 AGE: 34 : [birth year] SEX: F ROOM/BED: D.2107 AUTHOR: TRINITY,DOC PHYSICIAN: REFERRING PHYSICIAN: CAROLE JUAREZ MD DATE OF SERVICE: 06/09/19 Discharge Plan Patient Name: SOFIA FONTENOT Facility: [facility]:[place] : 1985 Planned Disposition: Home with Home Health Anticipated Discharge Date: 06/11/19 Discharge Date: Expected LOS: 4 Initial Reviewer: [email or web address] Initial Review Date: 06/09/2019 Generated: 06/09/19 1:33 pm Comments DCP- Discharge Planning Updated by [email or web address]: Kirill Ball on 06/09/19 11:[address] Patient Name: SOFIA FONTENOT Admission Status: ER Accout number: [id number] Admission Date: 06-07-2019 : 1985 Admission Diagnosis: Attending: RADHA Current LOS: 2 Anticipated DC Date: 06-11-2019 Planned Disposition: Home with Home Health Primary Insurance: MEDICAID [place] PLANNED EXTERNAL PROVIDER: [facility] Discharge Planning Comments: CM MET WITH PT IN ROOM TO DISCUSS DISCHARGE PLANNING AND NEEDS. PT REPORTS LIVING AT HOME INDEPENDENTLY WITH A ROOMMATE. PT HAS OSTOMY SUPPLIES FROM [employer] AND A STANDARD WALKER. PT HAS NO OUTSIDE SERVICES ASSISTING IN THE HOME. CM DISCUSSED AVAILABILITY OF HOME HEALTH, REHAB SERVICES AND MEDICAL EQUIPMENT. PT DENIES NEED OF FURTHER MEDICAL EQUIPMENT, REPORTING SHE IS UP AND WALKING AT HOME. PT WOULD LIKE HOME HEALTH FOR WOUND CARE, HAS NO PREFERENCE ON PROVIDER. CHOICE SIGNED. PT REPORTS ROOMMATE WILL PICK HER UP FOR DISCHARGE HOME. CM CALLED [facility], , SPOKE TO RITA, PROVIDED REFERRAL INFORMATION, [facility] TO ACCEPT FOR HOME HEALTH AT DISCHARGE. CM FAXED REFERRAL INFORMATION TO [facility], . FOR DISCHARGE, NOTIFY [facility] AT [phone] OF DISCHARGE AND WOUND CARE ORDERS; FAX DISCHARGE INFORMATION TO [facility] AT [phone]. CM TO CONTINUE TO FOLLOW AND ASSIST NEEDED. Access Lead: Kirill Rojaswell DCPIA - Discharge Planning Initial Assessment Updated by [id number]: Kirill Blal on 06/09/19 12:25 pm * Is the patient Alert and Oriented? Yes * How many steps to enter\exit or inside your home? NONE * [facility] * Pharmacy [facility] [place] * Preadmission Environment Home with Family * ADLs Independent * Equipment Ostomy Supplies Walker * Other Equipment [employer]IES * List name and contact numbers for known caregivers / representatives who currently or will assist patient after discharge: DENNIS LEPE, FATHER, * Verbal permission to speak to the caregivers and representatives has been obtained from the patient. N/A * Community resources currently utilized None * Please name any agencies selected above. NONE * Additional services required to return to the preadmission environment? Yes * Can the patient safely return to the preadmission environment? Yes * Has this patient been hospitalized within the prior 30 days at any hospital? No External Providers External Provider: [facility] Next Contact Date: 06/09/2019 Service Request Date: Service Type: Resolution: Reviewer: Comments: Last DP export: 06/09/19 11:27 Patient Name: SOIFA FONTENOT Page 97243 at 1234 All edits/amendments must be made on the electronic document DICTATION DATE: 06/09/19 1233 WEB DESIGN INTERN: MARISSA 06/09/19 1233 RPT#: [id number] MS DATE: STATUS: ADM IN [facility] [address] [place] [address] END OF REPORT
--- NOTE | 2019-06-09 12:47 | MORECARE ---
CASE MANAGEMENT DISCHARGE SUMMARY PATIENT: SOFIA FONTENOT UNIT: [id number] ADM DATE: 06/07/19 AGE: 34 : 89 SEX: F ROOM/BED: D.7805 AUTHOR: TRINITY,DOC PHYSICIAN: REFERRING PHYSICIAN: CAROLE JUAREZ MD DATE OF SERVICE: 06/09/19 Discharge Plan Patient Name: SOFIA FONTENOT Facility: [facility]:[place] : 1985 Planned Disposition: Home with Home Health Anticipated Discharge Date: 06/11/19 Discharge Date: Expected LOS: 4 Initial Reviewer: [email or web address] Initial Review Date: 06/09/2019 Generated: 06/09/19 1:47 pm Comments DCP- Discharge Planning Updated by [email or web address]: Kirill Ball on 06/09/19 11:[address] Patient Name: SOFIA FONTENOT Admission Status: ER Accout number: [id number] Admission Date: 06-07-2019 : 1985 Admission Diagnosis: Attending: RADHA Current LOS: 2 Anticipated DC Date: 06-11-2019 Planned Disposition: Home with Home Health Primary Insurance: MEDICAID [place] PLANNED EXTERNAL PROVIDER: [facility] Discharge Planning Comments: CM MET WITH PT IN ROOM TO DISCUSS DISCHARGE PLANNING AND NEEDS. PT REPORTS LIVING AT HOME INDEPENDENTLY WITH A ROOMMATE. PT HAS OSTOMY SUPPLIES FROM [employer] AND A STANDARD WALKER. PT HAS NO OUTSIDE SERVICES ASSISTING IN THE HOME. CM DISCUSSED AVAILABILITY OF HOME HEALTH, REHAB SERVICES AND MEDICAL EQUIPMENT. PT DENIES NEED OF FURTHER MEDICAL EQUIPMENT, REPORTING SHE IS UP AND WALKING AT HOME. PT WOULD LIKE HOME HEALTH FOR WOUND CARE, HAS NO PREFERENCE ON PROVIDER. CHOICE SIGNED. PT REPORTS ROOMMATE WILL PICK HER UP FOR DISCHARGE HOME. PT REPORTS HAVING NO GLUCOMETER FOR "A WHILE" AND DOES NOT KNOW HOW LONG SHE HAD HER LAST GLUCOMETER BUT INFORMED CM SHE LOST IT IN [place]. CM CALLED [facility], , SPOKE TO LARTELL, PROVIDED REFERRAL INFORMATION, [place] TO ACCEPT FOR HOME HEALTH AT DISCHARGE. CM FAXED REFERRAL INFORMATION TO [facility], . FOR DISCHARGE, NOTIFY [facility] AT [phone] OF DISCHARGE AND WOUND CARE ORDERS; FAX DISCHARGE INFORMATION TO [facility] AT [phone]. CM TO CONTINUE TO FOLLOW AND ASSIST NEEDED. PATIENT WILL NEED PRESCRIPTION FOR GLUCOMETER, LANCET DEVICE, TESTING STRIPS AND SUPPLIES AT DISCHARGE. Manager Bakery: Kirill Ball DCPIA - Discharge Planning Initial Assessment Updated by [id number]: Kirill Ball on 06/09/19 12:25 pm * Is the patient Alert and Oriented? Yes * How many steps to enter\\exit or inside your home? NONE * [facility]CP [facility] * Pharmacy [facility] [place] * Preadmission Environment Home with Family * ADLs Independent * Equipment Ostomy Supplies Walker * Other Equipment [employer] * List name and contact numbers for known caregivers / representatives who currently or will assist patient after discharge: DENNIS LEPE, FATHER, * Verbal permission to speak to the caregivers and representatives has been obtained from the patient. N/A * Community resources currently utilized None * Please name any agencies selected above. NONE * Additional services required to return to the preadmission environment? Yes * Can the patient safely return to the preadmission environment? Yes * Has this patient been hospitalized within the prior 30 days at any hospital? No Coverage Notice Reviewer: [id number] - Kirill Ball Notice Issued Date-Time: 06/09/2019 10:30 Notice Type: IM Discharge Notice Notice Delivered To: Patient Relationship to Patient: Golf Cart Repairer Name: Delivery Method: HAND - Hand Delivered Debbie Days: Prior Verbal Notification: Recipient Understood Notice: Yes Recipient Signature: Yes Med Rec Note Co-signed by Attending: Coverage Notice Comment: [facility] Last DP export: 06/09/19 11:34 Patient Name: SOFIA FONTENOT Page 40445 at 1247 All edits/amendments must be made on the electronic document DICTATION DATE: 06/09/191246 SWITCHBOARD OPERATOR: MARISSA 06/09/19 1247 RPT#: [id number] DC DATE: STATUS: ADM IN [facility] [address] [place] [address] END OF REPORT
[2019-06-09 12:52] VITALS: Ht 165.1 cm; Wt 45.4 kg
[2019-06-09 13:48] VITALS: BP 125/83
[2019-06-09] MEDS ORDERED: OMNICEF300 MG PO (16:30)
[2019-06-09 16:42] VITALS: BP 133/92
--- NOTE | 2019-06-09 18:00 | NUR ---
IV REMOVED FROM PT. DISCHARGE INSTRUCTIONS REVIEWED AND SIGNED. DRESSING SUPPLIES SENT AND SCRIPT FOR GLUCOSE MONITORING EQUIPMENT SENT. [facility]ED [facility].
--- NOTE | 2019-06-10 15:03 | MORECARE ---
CASE MANAGEMENT DISCHARGE SUMMARY PATIENT: SOFIA FONTNEOT UNIT: [id number] ADM DATE: 06/07/19 AGE: 34 : 87 SEX: F ROOM/BED: D.6374 AUTHOR: TRINITY,DOC PHYSICIAN: REFERRING PHYSICIAN: CAROLE JUAREZ MD DATE OF SERVICE: 06/10/19 Discharge Plan Patient Name: SOFIA FONTENOT Facility: [facility]:[place] : 1985 Planned Disposition: Home with Home Health Anticipated Discharge Date: 06/11/19 Discharge Date: 06/09/2019 Expected LOS: 4 Initial Reviewer: [email or web address] Initial Review Date: 06/09/2019 Generated: 06/10/19 4:03 pm Comments DCP- Discharge Planning Updated by [id number]: Kirill Ball on 06/09/19 11:[address] Patient Name: SOFIA FONTENOT Admission Status: ER Accout number: [id number] Admission Date: 06-07-2019 : 1985 Admission Diagnosis: Attending: RADHA Current LOS: 2 Anticipated DC Date: 06-11-2019 Planned Disposition: Home with Home Health Primary Insurance: MEDICAID [place] PLANNED EXTERNAL PROVIDER: [facility] Discharge Planning Comments: CM MET WITH PT IN ROOM TO DISCUSS DISCHARGE PLANNING AND NEEDS. PT REPORTS LIVING AT HOME INDEPENDENTLY WITH A ROOMMATE. PT HAS OSTOMY SUPPLIES FROM [employer] AND A STANDARD WALKER. PT HAS NO OUTSIDE SERVICES ASSISTING IN THE HOME. CM DISCUSSED AVAILABILITY OF HOME HEALTH, REHAB SERVICES AND MEDICAL EQUIPMENT. PT DENIES NEED OF FURTHER MEDICAL EQUIPMENT, REPORTING SHE IS UP AND WALKING AT HOME. PT WOULD LIKE HOME HEALTH FOR WOUND CARE, HAS NO PREFERENCE ON PROVIDER. CHOICE SIGNED. PT REPORTS ROOMMATE WILL PICK HER UP FOR DISCHARGE HOME. PT REPORTS HAVING NO GLUCOMETER FOR "A WHILE" AND DOES NOT KNOW HOW LONG SHE HAD HER LAST GLUCOMETER BUT INFORMED CM SHE LOST IT IN [place]. CM CALLED [facility], , SPOKE TO LATRELL, PROVIDED REFERRAL INFORMATION, [facility] TO ACCEPT FOR HOME HEALTH AT DISCHARGE. CM FAXED REFERRAL INFORMATION TO [facility], . FOR DISCHARGE, NOTIFY [facility] AT [phone] OF DISCHARGE AND WOUND CARE ORDERS; FAX DISCHARGE INFORMATION TO [facility] AT [phone]. CM TO CONTINUE TO FOLLOW AND ASSIST NEEDED. PATIENT WILL NEED PRESCRIPTION FOR GLUCOMETER, LANCET DEVICE, TESTING STRIPS AND SUPPLIES AT DISCHARGE. Driving Teacher: Kirill Ball DCPIA - Discharge Planning Initial Assessment Updated by [id number]: Kirill Ball on 06/09/19 12:25 pm * Is the patient Alert and Oriented? Yes * How many steps to enter\\exit or inside your home? NONE * [facility] * Pharmacy [facility] [place] * Preadmission Environment Home with Family * ADLs Independent * Equipment Ostomy Supplies Walker * Other Equipment [employer]IES * List name and contact numbers for known caregivers / representatives who currently or will assist patient after discharge: DENNIS LEPE, FATHER, * Verbal permission to speak to the caregivers and representatives has been obtained from the patient. N/A * Community resources currently utilized None * Please name any agencies selected above. NONE * Additional services required to return to the preadmission environment? Yes * Can the patient safely return to the preadmission environment? Yes * Has this patient been hospitalized within the prior 30 days at any hospital? No Coverage Notice Reviewer: [id number] - Kirill Ball Notice Issued Date-Time: 06/09/2019 10:30 Notice Type: IM Discharge Notice Notice Delivered To: Patient Relationship to Patient: Sheep Sorter Name: Delivery Method: HAND - Hand Delivered Debbie Days: Prior Verbal Notification: Recipient Understood Notice: Yes Recipient Signature: Yes Med Rec Note Co-signed by Attending: Coverage Notice Comment: [facility] Last DP export: 06/09/19 11:48 Patient Name: SOFIA FONTENOT Page [id number] at 1503 All edits/amendments must be made on the electronic document DICTATION DATE: 06/10/19 150 PAPER PRODUCTS SUPERVISOR: MARISSA 06/10/19 150 RPT#: [id number] DC DATE:06/09/19 STATUS: DIS IN [facility] [address] [place] [place] [address] END OF REPORT
--- NOTE | 2019-06-12 09:41 | MORECARE ---
CASE MANAGEMENT DISCHARGE SUMMARY PATIENT: SOFIA FONTENOT UNIT: [id number] ADM DATE: 06/07/19 AGE: 34 : 89 SEX: F ROOM/BED: D.2104 AUTHOR: TRINITY,DOC PHYSICIAN: REFERRING PHYSICIAN: CAROLE JUAREZ MD DATE OF SERVICE: 06/12/19 Discharge Plan Patient Name: SOFIA FONTENOT Facility: [facility]:[place] : 1985 Planned Disposition: Home with Home Health Anticipated Discharge Date: 06/11/19 Discharge Date: 06/09/2019 Expected LOS: 4 Initial Reviewer: [email or web address] Initial Review Date: 06/09/2019 Generated: 06/12/19 10:40 am Comments DCP- Discharge Planning Updated by [email or web address]: Kirill Rinaldi on 06/12/19 8:[address] Patient Name: SOFIA FONTENOT Encounter No: [id number] : 1985 Primary Insurance: MEDICAID [place] Anticipated DC Date: 06-11-2019 Planned Disposition: Home with Home Health External Planned Provider: [facility] DCP follow-up note: CM RECEIVED CALL FROM DEVANTE OF [facility], THEY HAVE REVIEWED REFERRAL AND DECLINED PT FOR HOME HEALTH. CM CALLED [facility], , SPOKE TO ALLI WHO WILL REVIEW REFERRAL FOR HOME HEALTH ACCEPTANCE. CM FAXED REFERRAL TO [facility] AT [phone]. CM WAITING ACCEPTANCE DETERMINATION FROM [facility]. KIRILL RINALDI,SANDER MANAGEMENT DCP- Discharge Planning Updated by [email or web address]: Kirill Rinaldi on 06/09/19 11:[address] Patient Name: SOFIA FONTENOT Admission Status: ER Accout number: [id number] Admission Date: 06-07-2019 : 1985 Admission Diagnosis: Attending: RADHA Current LOS: 2 Anticipated DC Date: 06-11-2019 Planned Disposition: Home with Home Health Primary Insurance: MEDICAID [place] PLANNED [facility] Discharge Planning Comments: CM MET WITH PT IN ROOM TO DISCUSS DISCHARGE PLANNING AND NEEDS. PT REPORTS LIVING AT HOME INDEPENDENTLY WITH A ROOMMATE. PT HAS OSTOMY SUPPLIES FROM [employer] AND A STANDARD WALKER. PT HAS NO OUTSIDE SERVICES ASSISTING IN THE HOME. CM DISCUSSED AVAILABILITY OF HOME HEALTH, REHAB SERVICES AND MEDICAL EQUIPMENT. PT DENIES NEED OF FURTHER MEDICAL EQUIPMENT, REPORTING SHE IS UP AND WALKING AT HOME. PT WOULD LIKE HOME HEALTH FOR WOUND CARE, HAS NO PREFERENCE ON PROVIDER. CHOICE SIGNED. PT REPORTS ROOMMATE WILL PICK HER UP FOR DISCHARGE HOME. PT REPORTS HAVING NO GLUCOMETER FOR "A WHILE" AND DOES NOT KNOW HOW LONG SHE HAD HER LAST GLUCOMETER BUT INFORMED CM SHE LOST IT IN [place]. CM CALLED [facility], , SPOKE TO LATRELL, PROVIDED REFERRAL INFORMATION, [facility] TO ACCEPT FOR HOME HEALTH AT DISCHARGE. CM FAXED REFERRAL INFORMATION TO [facility], . FOR DISCHARGE, NOTIFY [facility] AT [phone] OF DISCHARGE AND WOUND CARE ORDERS; FAX DISCHARGE INFORMATION TO [facility] AT [phone]. CM TO CONTINUE TO FOLLOW AND ASSIST NEEDED. PATIENT WILL NEED PRESCRIPTION FOR GLUCOMETER, LANCET DEVICE, TESTING STRIPS AND SUPPLIES AT DISCHARGE. Mud Worker: Kirill Rinaldi DCPIA - Discharge Planning Initial Assessment Updated by [id number]: Kirill Rinaldi on 06/09/19 12:25 pm * Is the patient Alert and Oriented? Yes * How many steps to enter\\exit or inside your home? NONE * [facility] * Pharmacy [facility] [place] * Preadmission Environment Home with Family * ADLs Independent * Equipment Ostomy Supplies Walker * Other Equipment [employer] * List name and contact numbers for known caregivers / representatives who currently or will assist patient after discharge: DENNIS LEPE, FATHER, * Verbal permission to speak to the caregivers and representatives has been obtained from the patient. N/A * Community resources currently utilized None * Please name any agencies selected above. NONE * Additional services required to return to the preadmission environment? Yes * Can the patient safely return to the preadmission environment? Yes * Has this patient been hospitalized within the prior 30 days at any hospital? No External Providers [facility] Next Contact Date: 06/13/2019 Service Request Date: Service Type: Resolution: Reviewer: Comments: Coverage Notice Reviewer: [email or web address] - Kirill Rinaldi Notice Issued Date-Time: 06/09/2019 10:30 Notice Type: IM Discharge Notice Notice Delivered To: Patient Relationship to Patient: Offset Press Assistant Name: Delivery Method: HAND - Hand Delivered Debbie Days: Prior Verbal Notification: Recipient Understood Notice: Yes Recipient Signature: Yes Med Rec Note Co-signed by Attending: Coverage Notice Comment: [facility] Last DP export: 06/10/19 2:03 Patient Name: SOFIA FONTENOT Page 23784 at 0941 All edits/amendments must be made on the electronic document DICTATION DATE: 06/12/19939 HRBP: MARISSA 06/12/19939 RPT#: [id number] DC DATE:06/09/19 STATUS: DIS IN [facility] [address] [place] [address] END OF REPORT
--- NOTE | 2019-06-12 14:08 | MORECARE ---
CASE MANAGEMENT DISCHARGE SUMMARY PATIENT: SOFIA FONTENOT UNIT: [id number] ADM DATE: 06/07/19 AGE: 34 : 89 SEX: F ROOM/BED: D.2104 AUTHOR: TRINITY,DOC PHYSICIAN: REFERRING PHYSICIAN: CAROLE JUAREZ MD DATE OF SERVICE: 06/12/19 Discharge Plan Patient Name: SOFIA FONTENOT Facility: [facility]:[place] : 1985 Planned Disposition: Home with Home Health Anticipated Discharge Date: 06/11/19 Discharge Date: 06/09/2019 Expected LOS: 4 Initial Reviewer: [email or web address] Initial Review Date: 06/09/2019 Generated: 06/12/19 3:08 pm Comments DCP- Discharge Planning Updated by [id number]: Kirill Rinaldi on 06/12/19 8:[address] Patient Name: SOFIA FONTENOT Encounter No: [id number] : 1985 Primary Insurance: [place] Anticipated DC Date: 06-11-2019 Planned Disposition: Home with Home Health External Planned Provider: [facility] DCP follow-up note: CM RECEIVED CALL FROM DEVANTE OF [facility], THEY HAVE REVIEWED REFERRAL AND DECLINED PT FOR HOME HEALTH. CM CALLED [facility], , SPOKE TO ALLI WHO WILL REVIEW REFERRAL FOR HOME HEALTH ACCEPTANCE. CM FAXED REFERRAL TO [facility] AT [phone]. CM WAITING ACCEPTANCE DETERMINATION FROM [facility]. KIRILL RINALDI,SANDER MANAGEMENT DCP- Discharge Planning Updated by [id number]: Kirill Rinaldi on 06/09/19 11:[address] Patient Name: SOFIA FONTENOT Admission Status: ER Accout number: [id number] Admission Date: 06-07-2019 : 1985 Admission Diagnosis: Attending: RADHA Current LOS: 2 Anticipated DC Date: 06-11-2019 Planned Disposition: Home with Home Health Primary Insurance: [place] PLANNED EXTERNAL PROVIDER[facility] Discharge Planning Comments: CM MET WITH PT IN ROOM TO DISCUSS DISCHARGE PLANNING AND NEEDS. PT REPORTS LIVING AT HOME INDEPENDENTLY WITH A ROOMMATE. PT HAS OSTOMY SUPPLIES FROM [employer] AND A STANDARD WALKER. PT HAS NO OUTSIDE SERVICES ASSISTING IN THE HOME. CM DISCUSSED AVAILABILITY OF HOME HEALTH, REHAB SERVICES AND MEDICAL EQUIPMENT. PT DENIES NEED OF FURTHER MEDICAL EQUIPMENT, REPORTING SHE IS UP AND WALKING AT HOME. PT WOULD LIKE HOME HEALTH FOR WOUND CARE, HAS NO PREFERENCE ON PROVIDER. CHOICE SIGNED. PT REPORTS ROOMMATE WILL PICK HER UP FOR DISCHARGE HOME. PT REPORTS HAVING NO GLUCOMETER FOR "A WHILE" AND DOES NOT KNOW HOW LONG SHE HAD HER LAST GLUCOMETER BUT INFORMED CM SHE LOST IT IN [place]. CM CALLED [facility], , SPOKE TO LATRELL, PROVIDED REFERRAL INFORMATION, [place] TO ACCEPT FOR HOME HEALTH AT DISCHARGE. CM FAXED REFERRAL INFORMATION TO [facility], . FOR DISCHARGE, NOTIFY [facility] AT [phone] OF DISCHARGE AND WOUND CARE ORDERS; FAX DISCHARGE INFORMATION TO [facility] AT [phone]. CM TO CONTINUE TO FOLLOW AND ASSIST NEEDED. PATIENT WILL NEED PRESCRIPTION FOR GLUCOMETER, LANCET DEVICE, TESTING STRIPS AND SUPPLIES AT DISCHARGE. Radiology Tech: Kirill Rinaldi DCPIA - Discharge Planning Initial Assessment Updated by [id number]: Kirill Rinaldi on 06/09/19 12:25 pm * Is the patient Alert and Oriented? Yes * How many steps to enter\\exit or inside your home? NONE * [facility] * Pharmacy [facility] [place] * Preadmission Environment Home with Family * ADLs Independent * Equipment Ostomy Supplies Walker * Other Equipment [employer] * List name and contact numbers for known caregivers / representatives who currently or will assist patient after discharge: DENNIS LEPE, FATHER, * Verbal permission to speak to the caregivers and representatives has been obtained from the patient. N/A * Community resources currently utilized None * Please name any agencies selected above. NONE * Additional services required to return to the preadmission environment? Yes * Can the patient safely return to the preadmission environment? Yes * Has this patient been hospitalized within the prior 30 days at any hospital? No Coverage Notice Reviewer: [id number] - Kirill Rinaldi Notice Issued Date-Time: 06/09/2019 10:30 Notice Type: IM Discharge Notice Notice Delivered To: Patient Relationship to Patient: Shoe Patternmaker Name: Delivery Method: HAND - Hand Delivered Debbie Days: Prior Verbal Notification: Recipient Understood Notice: Yes Recipient Signature: Yes Med Rec Note Co-signed by Attending: Coverage Notice Comment: [facility] Last DP export: 06/12/19 8:41 a Patient Name: SOFIA FONTENOT Page 90970 at 1408 All edits/amendments must be made on the electronic document DICTATION DATE: 06/12/191407 GEOGRAPHIC ANALYST: MARISSA 06/12/191407 RPT#: [id number] DC DATE:06/09/19 STATUS: DIS IN [facility] [address] [place] [address] END OF REPORT
--- NOTE | 2019-06-12 14:19 | MORECARE ---
CASE MANAGEMENT DISCHARGE SUMMARY PATIENT: SOFIA FONTENOT UNIT: [id number] ADM DATE: 06/07/19 AGE: 34 : 89 SEX: F ROOM/BED: D.210 AUTHOR: TRINITY,DOC PHYSICIAN: REFERRING PHYSICIAN: CAROLE JUAREZ MD DATE OF SERVICE: 06/12/19 Discharge Plan Patient Name: SOFIA FONTENOT Facility: [facility]:[place] : 1985 Planned Disposition: Home with Home Health Anticipated Discharge Date: 06/11/19 Discharge Date: 06/09/2019 Expected LOS: 4 Initial Reviewer: [email or web address] Initial Review Date: 06/09/2019 Generated: 06/12/19 3:19 pm Comments DCP- Discharge Planning Updated by [email or web address]: Kirill Rinaldi on 06/12/19 1:[address] Patient Name: SOFIA FONTENOT Encounter No: [id number] : 1985 Primary Insurance: MEDICAID [place] Anticipated DC Date: 06-11-2019 Planned Disposition: Home DCP follow-up note: CM RECEIVED CALL FROM ALLI OF [employer]. PT HAS NOT SEEN HER PRIMARY CARE DOCTOR, AME PETERS, SINCE 2017. HOME HEALTH WILL NOT BE ABLE TO BE ARRANGED UNTIL THE PT IS SEEN AND ASSESSED BY HER PRIMARY CARE PHYSICIAN. AT THIS TIME, THEY ARE NOT ABLE TO ACCEPT FOR HOME HEALTH. CM CALLED PT'S PHONE NUMBER, , LEFT MESSAGE. CM WAS NOT ABLE TO FIND ACCEPTING HOME HEALTH PROVIDER PT HAS NOT SEEN HER PRIMARY CARE DOCTOR SINCE 2018 AND WILL NEED TO SEE HER PRIMARY CARE DOCTOR FOR EVALUATION FOR HOME HEALTH SERVICES. Kirill Rinaldi, CASE MANAGEMENT DCP- Discharge Planning Updated by [id number]: Kirill Rinaldi on 06/12/19 8:[address] Patient Name: SOFIA FONTENOT Encounter No: [id number] : 1985 Primary Insurance: MEDICAID [place] Anticipated DC Date: 06-11-2019 Planned Disposition: Home with Home Health External Planned Provider: [email or web address] DCP follow-up note: CM RECEIVED CALL FROM DEVANTE OF [employer], THEY HAVE REVIEWED REFERRAL AND DECLINED PT FOR HOME HEALTH. CM CALLED [email or web address], , SPOKE TO ALLI WHO WILL REVIEW REFERRAL FOR HOME HEALTH ACCEPTANCE. CM FAXED REFERRAL TO [facility] AT [phone]. CM WAITING ACCEPTANCE DETERMINATION FROM [facility]. KIRILL RINALDI,CASE MANAGEMENT DCP- Discharge Planning Updated by [id number]: Kirill Rinaldi on 06/09/19 11:[address] Patient Name: SOFIA FONTENOT Admission Status: ER Accout number: [id number] Admission Date: 06-07-2019 : 1985 Admission Diagnosis: Attending: RADHA Current LOS: 2 Anticipated DC Date: 06-11-2019 Planned Disposition: Home with Home Health Primary Insurance: MED[place]ID [place] PLANNED EXTERNAL PROVIDER: [facility] Discharge Planning Comments: CM MET WITH PT IN ROOM TO DISCUSS DISCHARGE PLANNING AND NEEDS. PT REPORTS LIVING AT HOME INDEPENDENTLY WITH A ROOMMATE. PT HAS OSTOMY SUPPLIES FROM [employer] AND A STANDARD WALKER. PT HAS NO OUTSIDE SERVICES ASSISTING IN THE HOME. CM DISCUSSED AVAILABILITY OF HOME HEALTH, REHAB SERVICES AND MEDICAL EQUIPMENT. PT DENIES NEED OF FURTHER MEDICAL EQUIPMENT, REPORTING SHE IS UP AND WALKING AT HOME. PT WOULD LIKE HOME HEALTH FOR WOUND CARE, HAS NO PREFERENCE ON PROVIDER. CHOICE SIGNED. PT REPORTS ROOMMATE WILL PICK HER UP FOR DISCHARGE HOME. PT REPORTS HAVING NO GLUCOMETER FOR "A WHILE" AND DOES NOT KNOW HOW LONG SHE HAD HER LAST GLUCOMETER BUT INFORMED CM SHE LOST IT IN [place]. CM CALLED [facility], , SPOKE TO LATRELL, PROVIDED REFERRAL INFORMATION, [place] TO ACCEPT FOR HOME HEALTH AT DISCHARGE. CM [facility], . FOR DISCHARGE, NOTIFY [facility] AT [phone] OF DISCHARGE AND WOUND CARE ORDERS; FAX DISCHARGE INFORMATION TO [facility] AT [phone]. CM TO CONTINUE TO FOLLOW AND ASSIST NEEDED. PATIENT WILL NEED PRESCRIPTION FOR GLUCOMETER, LANCET DEVICE, TESTING STRIPS AND SUPPLIES AT DISCHARGE. Statistical Developer: Kirill Rinaldi DCPIA - Discharge Planning Initial Assessment Updated by [id number]: Kirill Rinaldi on 06/09/19 12:25 pm * Is the patient Alert and Oriented? Yes * How many steps to enter\\exit or inside your home? NONE * PCP [facility] * [facility] * Preadmission Environment Home with Family * ADLs Independent * Equipment Ostomy Supplies Walker * Other Equipment [employer] * List name and contact numbers for known caregivers / representatives who currently or will assist patient after discharge: DENNIS LEPE, FATHER, * Verbal permission to speak to the caregivers and representatives has been obtained from the patient. N/A * Community resources currently utilized None * Please name any agencies selected above. NONE * Additional services required to return to the preadmission environment? Yes * Can the patient safely return to the preadmission environment? Yes * Has this patient been hospitalized within the prior 30 days at any hospital? No Coverage Notice Reviewer: [id number] Basilio Rinaldi Notice Issued Date-Time: 06/09/2019 10:30 Notice Type: IM Discharge Notice Notice Delivered To: Patient Relationship to Patient: Lumber Sorter Machine Name: Delivery Method: HAND - Hand Delivered Debbie Days: Prior Verbal Notification: Recipient Understood Notice: Yes Recipient Signature: Yes Med Rec Note Co-signed by Attending: Coverage Notice Comment: [facility] Last DP export: 06/12/19 1:08 p Patient Name: SOFIA FONTENOT Page 54883 at 1419 All edits/amendments must be made on the electronic document DICTATION DATE: 06/12/191418 VETERINARY DENTIST: MARISSA 06/12/191418 RPT#: [id number] DC DATE:06/09/19 STATUS: DIS IN [facility] [id number] [place] [address] END OF REPORT
== END 2019-06-09 18:02 | disposition home health service (06) | DRG 689 ==
LOC: D.ER 17:42 → D.M2 22:34
PROVIDERS: Emergency Medicine; Family Medicine; ADMIT Family Medicine; ATTEND Family Medicine
DX: N39.0 Urinary tract infection, site not specified (principal); E43 Unspecified severe protein-calorie malnutrition; L89.154 Pressure ulcer of sacral region, stage 4; Z68.1 Body mass index [BMI] 19.9 or less, adult; E10.65 Type 1 diabetes mellitus with hyperglycemia; Z79.4 Long term (current) use of insulin; E10.622 Type 1 diabetes mellitus with other skin ulcer; I10 Essential (primary) hypertension; Z93.3 Colostomy status

== ENCOUNTER 2019-07-17 18:54 | Inpatient (IN) | payer MEDICAID ==
[~2019-07-17] VITALS: Ht 165.1 cm; Wt 59.6 kg
[~2019-07-17 18:54] MED LIST changes: +OMNICEF300 MG PO
[2019-07-17] MEDS ORDERED: PERCOCET 10-321 EAC1 PO (19:04)
[2019-07-17 20:20] LABS: BASOPHILS 0.1 % (0-2); HEMATOCRIT 33.3 % (36.0-48.0); HEMOGLOBIN 10.8 g/dL (12-16); IMMATURE GRANULOCYTES 0.1 % (0-5); LYMPHOCYTES 34.4 % (15-50); MCH 27.3 pg (26.0-34.0); MCHC 32.4 g/dL (31.0-37.0); MCV 84.1 fL (80.0-100.0); MEAN PLATELET VOLUME 9.5 fL (7.4-10.4); MONOCYTES 4.5 % (2-11); NEUTROPHILS 58.9 % (40-80); PLATELET COUNT 403 10x3/uL (130-400); RBC 3.96 10x6/uL (4.00-5.40); RDW 15.1 % (11.5-14.5); WBC 7.1 10x3/uL (4.8-10.8)
[2019-07-17 20:39] LABS: INR 0.95 (0.85-1.17); PROTIME 12.2 SECONDS (11.6-15.0)
[2019-07-17 20:40] LABS: APTT 48.2 SECONDS (22.8-39.4)
[2019-07-17 20:54] LABS: ALBUMIN 2.6 g/dL (3.4-5.0); ALKALINE PHOSPHATASE 224 U/L (46-116); ALT (SGPT) 20 U/L (10-68); BILIRUBIN - TOTAL 0.14 mg/dL (0.2-1.3); CALC OSMOLALITY 282 mosm/kg (275-300); CALCIUM 8.2 mg/dL (8.5-10.1); CARBON DIOXIDE 19.3 mmol/L (21.0-32.0); CHLORIDE - SERUM 94 mmol/L (98-107); CKMB 2.6 U/L (0.0-3.6); CREATINE KINASE 47 UL (21-215); CREATININE - SERUM 1.1 mg/dL (0.6-1.3); POTASSIUM - SERUM 3.6 mmol/L (3.5-5.1); PROTEIN - SERUM 7.7 g/dL (6.4-8.2); SODIUM 124 mmol/L (136-145); TROPONIN-I < 0.017 ng/mL (0.000-0.060); UREA NITROGEN 11 mg/dL (7-18); eGFR NON AFRICAN AMERICAN 61 mL/min (90-120)
[2019-07-17 20:55] LABS: GLUCOSE 706 mg/dL (74-106)
[2019-07-17 21:16] VITALS: BP 94/63
[2019-07-17 22:15] VITALS: BP 105/68
--- NOTE | 2019-07-17 22:49 | NUR ---
FSBS 457
[2019-07-17 23:04] VITALS: BP 111/72
--- NOTE | 2019-07-17 23:16 | NUR ---
REPORT CALLED TO KIRK WINSTON
--- NOTE | 2019-07-17 23:16 | NUR ---
URINE TO LAB
--- NOTE | 2019-07-17 23:35 | NUR ---
RECEIVED PT VIA STRETCHER FROM ER. PT STATES SHE LIVES WITH A FRIEND. PT IS ACCOMPANIED BY MOTHER. PT IS EMACIATED AND HAS MULTIPLE OPEN WOUNDS TO BLE, COCCYX, RT HAND, LT HAND, SCRATCHES ON BACK AND LT FOREARM. STATES SHE USES W/C FOR MOBILITY. COLOSTOMY APPLIANCE AND BAG APPLIED PER PTS MOTHER. PT STATES SHE HASNT HAD HER MEDS IN A COUPLE OF WEEKS. PT ASKING FOR FOOD. SALINE LOCK NOTED TO RT FOREARM AND NS INFUSING IN LT INDEX FINGER. PT TURNS SELF AND IS ALERT AND ORIENTED X4. SR ELEVATED X2. CL IN REACH. DENIES PAIN AT THIS TIME.
[2019-07-18 00:15] LABS: HCG URINE NEGATIVE (NEGATIVE)
[2019-07-18 00:19] LABS: UDS - AMPHET NEGATIVE QUAL (NEGATIVE); UDS - BARB NEGATIVE QUAL (NEGATIVE); UDS - BENZO NEGATIVE QUAL (NEGATIVE); UDS - COCAINE POSITIVE QUAL (NEGATIVE); UDS - OPIATE NEGATIVE QUAL (NEGATIVE); UDS - PCP NEGATIVE QUAL (NEGATIVE); UDS - THC NEGATIVE QUAL (NEGATIVE)
[2019-07-18 00:33] VITALS: BP 104/73; BMI 15.1
--- NOTE | 2019-07-18 00:35 | NUR ---
NOTIFIED ARIK YOON OF [facility].
[2019-07-18 00:36] LABS: APPEARANCE CLEAR (CLEAR); BILIRUBIN NEGATIVE (NEGATIVE); COLOR YELLOW (YELLOW); GLUCOSE 1000 mg/dL (NEGATIVE); KETONE NEGATIVE (NEGATIVE); NITRITE NEGATIVE (NEGATIVE); PROTEIN 1+ mg/dL (NEGATIVE); UROBILINOGEN NORMAL (NORMAL)
[2019-07-18 00:37] LABS: BACTERIA FEW /hpf (NEGATIVE); EPITHELIAL CELLS 0-5 /hpf (0-5); RED CELLS - URINE 0-5 /hpf (0-5); WHITE CELLS - URINE 0-5 /hpf (NEGATIVE); YEAST <1+ /hpf (NONE SEEN)
[2019-07-18 00:54] VITALS: BP 96/72
--- NOTE | 2019-07-18 01:30 | NUR ---
MEPILEX BORDER APPLIED TO COCCYX. APPEARS TO BE STAGE 3. NO DRAINAGE NOTED.
--- NOTE | 2019-07-18 03:02 | NUR ---
MEDICATED WITH MORPHINE FOR C/O PAIN IN BLE RATING 10. CL IN REACH. CONSTANTLY ASKING FOR FOOD. HAS HAD DIET SODAS AND CHICKEN NOODLE SOUP. EXPLAINED IMPORTANCE OF DIABETIC DIET COMPLIANCE. GLUCOSE IS OUT OF CONTROL DUE TO DIET AND MED NONCOMPLIANCE. STATES SHE HASNT HAD INSULIN IN 2 WEEKS.
--- NOTE | 2019-07-18 04:59 | NUR ---
SITTING UP IN BED EATING CHICKEN NOODLE SOUP. NO DISTRESS. CL IN REACH.
[2019-07-18 05:16] VITALS: BP 99/60
[2019-07-18 06:36] LABS: KETONE - SERUM NEGATIVE (NEGATIVE)
[2019-07-18 06:45] LABS: BASOPHILS 0.3 % (0-2); EOSINOPHILS 1.5 % (0-7); HEMATOCRIT 33.5 % (36.0-48.0); HEMOGLOBIN 10.9 g/dL (12-16); IMMATURE GRANULOCYTES 0.1 % (0-5); LYMPHOCYTES 49.6 % (15-50); MCH 26.8 pg (26.0-34.0); MCHC 32.5 g/dL (31.0-37.0); MCV 82.3 fL (80.0-100.0); MEAN PLATELET VOLUME 9.7 fL (7.4-10.4); MONOCYTES 3.7 % (2-11); NEUTROPHILS 44.8 % (40-80); PLATELET COUNT 404 10x3/uL (130-400); RBC 4.07 10x6/uL (4.00-5.40); WBC 7.8 10x3/uL (4.8-10.8)
[2019-07-18 06:46] LABS: % SATURATION 27 % (15-55); IRON 43 ug/dl (35-150); TOTAL IRON BIND CAPACITY 159 ug/dl (260-445); UNSAT IRON BIND CAPACITY 116 ug/dl (150-375)
[2019-07-18 07:13] LABS: ALBUMIN 2.5 g/dL (3.4-5.0); ALKALINE PHOSPHATASE 151 U/L (46-116); ALT (SGPT) 18 U/L (10-68); CALCIUM 8.5 mg/dL (8.5-10.1); CARBON DIOXIDE 20.9 mmol/L (21.0-32.0); CHLORIDE - SERUM 106 mmol/L (98-107); FERRITIN 263 ng/mL (3-244); MAGNESIUM - SERUM 1.9 mg/dL (1.8-2.4); PHOSPHOROUS 3.5 mg/dL (2.5-4.9); POTASSIUM - SERUM 3.1 mmol/L (3.5-5.1); PRE-ALBUMIN 12.5 mg/dL (18.0-35.7); PROTEIN - SERUM 7.3 g/dL (6.4-8.2); SODIUM 136 mmol/L (136-145); UREA NITROGEN 9 mg/dL (7-18)
[2019-07-18 07:14] LABS: CALC OSMOLALITY 271 mosm/kg (275-300); CREATININE - SERUM 0.8 mg/dL (0.6-1.3); GLUCOSE 117 mg/dL (74-106); eGFR NON AFRICAN AMERICAN 88 mL/min (90-120)
[2019-07-18 07:54] VITALS: BP 95/64
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
[2019-07-18 12:29] VITALS: BMI 15.1
--- NOTE | 2019-07-18 20:40 | NUR ---
SITTING UP IN BED EATING. ALERT AND ORIENTED X4. PT IS EMACIATED. MULTIPLE WOUNDS TO HANDS, LT ARM, LT HAND, RT HAND, BLE AND COCCYX. DRSG NOTED TO COCCYX. MEDICATED WITH MORPHINE FOR C/O PAIN IN BLE. RESP EVEN AND NONLABORED. NS @ 125 ML/HR INFUSING IN LT INDEX FINGER. AIR MATTRESS IN USE. TURNS SELF. AMBULATORY. FOUL ODOR NOTED, COLOSTOMY TO LT ABD HAS COME LOOSE AND BAG WAS FULL OF YELLOW LOOSE BM. PT GIVEN BED BATH AND LINENS CHANGED AT THIS TIME. NEW COLOSTOMY BAG APPLIED.
[2019-07-18 22:05] VITALS: BP 111/78
[2019-07-19] VITALS: BP 105/61
--- NOTE | 2019-07-19 01:30 | NUR ---
MEDICATED WITH MORPHINE FOR C/O PAIN IN BLE. CL IN REACH.
--- NOTE | 2019-07-19 02:20 | NUR ---
BLE PAINTED WITH BETADINE AND WRAPPED IN KERLIX. PT ANKUR WELL. NONSLIP SOCKS PLACED BILAT.
[2019-07-19 04:00] VITALS: BP 101/70
--- NOTE | 2019-07-19 04:05 | NUR ---
COLOSTOMY FULL AND CAME OFF AGAIN. PT FAILS TO TELL STAFF ITS NEAR FULL. HAS BEEN EATING ALL NIGHT LONG. NEW COLOSTOMY BAG/APPLIANCE ON NOW. CL IN REACH.
--- NOTE | 2019-07-19 05:47 | NUR ---
MEDICATED WITH MORPHINE FOR C/O LEG PAIN. COLOSTOMY EMPTIED AGAIN. PT HAS BEEN INSTRUCTED TO MONITOR OUTPUT TO PREVENT COLOSTOMY BAG FROM OVERFILLING AND COMING OFF BUT IS NOT RECEPTIVE TO INSTRUCTIONS.
[2019-07-19 05:55] LABS: BASOPHILS 0.2 % (0-2); EOSINOPHILS 1.5 % (0-7); HEMATOCRIT 27.8 % (36.0-48.0); IMMATURE GRANULOCYTES 0.1 % (0-5); LYMPHOCYTES 35.1 % (15-50); MCH 26.9 pg (26.0-34.0); MCHC 32.4 g/dL (31.0-37.0); MEAN PLATELET VOLUME 9.4 fL (7.4-10.4); MONOCYTES 5.1 % (2-11); PLATELET COUNT 385 10x3/uL (130-400); RBC 3.35 10x6/uL (4.00-5.40); RDW 15.4 % (11.5-14.5); WBC 8.7 10x3/uL (4.8-10.8)
[2019-07-19 06:12] LABS: ALBUMIN 2.1 g/dL (3.4-5.0); ANION GAP 15.4 mmol/L (8-16); BILIRUBIN - TOTAL 0.07 mg/dL (0.2-1.3); CARBON DIOXIDE 18.6 mmol/L (21.0-32.0); MAGNESIUM - SERUM 1.8 mg/dL (1.8-2.4); PROTEIN - SERUM 6.6 g/dL (6.4-8.2)
[2019-07-19 06:16] LABS: CREATININE - SERUM 1.1 mg/dL (0.6-1.3)
[2019-07-19 07:32] VITALS: BP 92/56
--- NOTE | 2019-07-19 07:56 | NUR ---
PATIENT IN BED WITH IV INTACT. NO COMPLAINTS OR SIGNS OF DISTRESS. EYES CLOSED RESTING QUIETLY. CALL LIGHT WITHIN REACH.
--- NOTE | 2019-07-19 10:09 | MORECARE ---
CASE MANAGEMENT DISCHARGE SUMMARY PATIENT: SOFIA FONTENOT UNIT: [id number] ADM DATE: 07/17/19 AGE: 34 : 89 SEX: F ROOM/BED: D.2214 AUTHOR: JUAN PETERSEN PHYSICIAN: REFERRING PHYSICIAN: LYNN VO MD DATE OF SERVICE: 07/19/19 Discharge Plan Patient Name: SOFIA FONTENOT Facility: [facility]:[place] : 1985 Planned Disposition: Home or Self Care Anticipated Discharge Date: Discharge Date: Expected LOS: Initial Reviewer: [email or web address] Initial Review Date: 07/17/2019 Generated: 07/19/19 11:09 am DCPIA - Discharge Planning Initial Assessment Updated by [email or web address]: Ally Cantor on 07/19/19 10:09 am * Is the patient Alert and Oriented? Yes * How many steps to enter\exit or inside your home? * Pharmacy [facility] * Preadmission Environment Home with Family * ADLs Partial Dependent * Partial ADLs (Assistance needed) Ambulation Bathing Medication Management * Equipment Bedside Commode Glucometer Ostomy Supplies Rolling Walker * List name and contact numbers for known caregivers / representatives who currently or will assist patient after discharge: ABAD (MOTHER) [phone] PILI (FRIEND) * Verbal permission to speak to the caregivers and representatives has been obtained from the patient. N/A * Community resources currently utilized None * Additional services required to return to the preadmission environment? Yes * Has this patient been hospitalized within the prior 30 days at any hospital? No Patient Name: SOFIA FONTENOT Page 08985 at 1009 All edits/amendments must be made on the electronic document DICTATION DATE: 07/19/19 1009 INSURANCE RISK ANALYST: MARISSA 07/19/19 1009 RPT#: [id number] DC DATE: STATUS: ADM IN [facility] [address] [place] [address] END OF REPORT
--- NOTE | 2019-07-19 10:16 | MORECARE ---
CASE MANAGEMENT DISCHARGE SUMMARY PATIENT: SOFIA FONTENOT UNIT: [id number] ADM DATE: 07/17/19 AGE: 34 : 89 SEX: F ROOM/BED: D.2214 AUTHOR: TRINITY,DOC PHYSICIAN: REFERRING PHYSICIAN: LYNN VO MD DATE OF SERVICE: 07/19/19 Discharge Plan Patient Name: SOFIA FONTENOT Facility: [facility]:[place] : 1985 Planned Disposition: Home or Self Care Anticipated Discharge Date: Discharge Date: Expected LOS: Initial Reviewer: [email or web address] Initial Review Date: 07/17/2019 Generated: 07/19/19 11:16 am Comments DCP- Discharge Planning Updated by [id number]: Ally Cantor on 07/19/19 9:[address] Patient Name: SOFIA FONTENOT Admission Status: ER Accout number: [id number] Admission Date: 07-17-2019 : 1985 Admission Diagnosis: Attending: MICHAEL Current LOS: 2 Anticipated DC Date: Planned Disposition: Home or Self Care Primary Insurance: MEDICAID [place] Discharge Planning Comments: CM met with patient to complete initial dc planning assessment. CM educated patient on the CM role and verbal consent given by patient to complete assessment. Patient lives with her friend, Cyndi. At discharge patient plans to return to her home with her friend and feels this is a safe discharge. She stated that her mother helps her with medicine and bathing. She does not have a PCP. She is disabled, receives 500.00 per month. She did have food stamps, but needs to go back to the [facility] office and apply again for them, She knows where to go. She does not use any other community resources. Her mom or her friend Cyndi help her when needed. CM discussed availability of home health, rehab services, and medical equipment. She has a walker, BSC, and Ostomy supplies that she gets from [facility]. She stated that she has running water, electricity and food in the home. She does not feel like she is in danger and feels safe returning back home with Cyndi. Patient denied known discharge needs at this time. CM will continue to follow and will assist as needed with dc plans/needs. Unit Reactor Operator: Ally Cantor DCPIA - Discharge Planning Initial Assessment Updated by [id number]: Ally Cantor on 07/19/19 10:09 am * Is the patient Alert and Oriented? Yes * How many steps to enter\exit or inside your home? * Pharmacy [facility] * Preadmission Environment Home with Family * ADLs Partial Dependent * Partial ADLs (Assistance needed) Ambulation Bathing Medication Management * Equipment Bedside Commode Glucometer Ostomy Supplies Rolling Walker * List name and contact numbers for known caregivers / representatives who currently or will assist patient after discharge: ABAD (MOTHER) [phone] CYNDI (FRIEND) * Verbal permission to speak to the caregivers and representatives has been obtained from the patient. N/A * Community resources currently utilized None * Additional services required to return to the preadmission environment? Yes * Has this patient been hospitalized within the prior 30 days at any hospital? No Coverage Notice Reviewer: [id number] - Ally Cantor Notice Issued Date-Time: 07/19/2019 8:50 Notice Type: Patient Choice Letter Notice Delivered To: Patient Relationship to Patient: Head Of Mathematics Name: Delivery Method: HAND - Hand Delivered Debbie Days: Prior Verbal Notification: Recipient Understood Notice: Yes Recipient Signature: Yes Med Rec Note Co-signed by Attending: Coverage Notice Comment: [facility] ostomy supplies Last DP export: 07/19/19 9:09 am Patient Name: SOFIA FONTENOT Page 92180 at 1016 All edits/amendments must be made on the electronic document DICTATION DATE: 07/19/19 1016 STAFF MIDWIFE: MARISSA 07/19/19 1016 RPT#: [id number] DC DATE: STATUS: ADM IN [facility] [address] [place] [address] END OF REPORT
[2019-07-19 16:05] VITALS: BP 99/60
--- NOTE | 2019-07-19 18:00 | NUR ---
DR. CANDELARIO IN ROOM DOING WOUND CARE. PATIENT IN BED WITH IV INTACT. NO COMPLAINTS OR SIGNS OF DISTRESS. CALL LIGHT WITHIN REACH.
[2019-07-19 20:00] VITALS: BP 104/77
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
[2019-07-20] VITALS: BP 132/96
--- NOTE | 2019-07-20 00:30 | NUR ---
ACUCHECK 445, BUT PT CONTINUES TO EAT AND HAS SINCE THIS SHIFT BEGAN, 20 UNITS REGULAR INSULIN GIVEN PER SLIDING SCALE, WILL RECHECK
[2019-07-20 04:00] VITALS: BP 103/72
[2019-07-20 07:10] LABS: BASOPHILS 0.1 % (0-2); EOSINOPHILS 2.1 % (0-7); HEMATOCRIT 29.1 % (36.0-48.0); HEMOGLOBIN 9.2 g/dL (12-16); IMMATURE GRANULOCYTES 0.3 % (0-5); MCH 26.6 pg (26.0-34.0); MCHC 31.6 g/dL (31.0-37.0); MCV 84.1 fL (80.0-100.0); MEAN PLATELET VOLUME 9.8 fL (7.4-10.4); MONOCYTES 4.9 % (2-11); NEUTROPHILS 47.6 % (40-80); PLATELET COUNT 361 10x3/uL (130-400); RBC 3.46 10x6/uL (4.00-5.40); RDW 15.9 % (11.5-14.5); WBC 6.8 10x3/uL (4.8-10.8)
[2019-07-20 07:16] LABS: ALBUMIN 1.9 g/dL (3.4-5.0); ANION GAP 11.2 mmol/L (8-16); BILIRUBIN - TOTAL 0.12 mg/dL (0.2-1.3); CALCIUM 7.9 mg/dL (8.5-10.1); CARBON DIOXIDE 20.3 mmol/L (21.0-32.0); CREATININE - SERUM 1.2 mg/dL (0.6-1.3); MAGNESIUM - SERUM 1.9 mg/dL (1.8-2.4); PHOSPHOROUS 4.1 mg/dL (2.5-4.9); POTASSIUM - SERUM 3.5 mmol/L (3.5-5.1); PROTEIN - SERUM 6.3 g/dL (6.4-8.2)
--- NOTE | 2019-07-20 08:00 | NUR ---
AWAKE AND ALERT. ORIENTED X3. NO C/O AT THIS TIME. LUNGS ARE CLEAR BILATERALLY, NO COUGH NOTED. SKIN HAS SEVERAL AREAS FOR CONCERN WITH SCABS AND WOUNDS ALL OVER. DRESSINGS TO BILATERAL LOWER LEGS DRY AND INTACT. IV TO LEFT HAND IS PATENT WITHOUT REDNESS AT INSERTION SITE. COLOSTOMY IS PATENT WITH LOOSE WATERY STOOL, STOMA PINK AND VIABLE. DENIES NEEDS.
[2019-07-20 09:25] VITALS: BP 123/88
--- NOTE | 2019-07-20 11:00 | NUR ---
UP TO BR WITH ONE PERSON ASSIST. VOIDED WITHOUT DIFFICULTY. REPOSITIONED IN BED FOR COMFORT.
--- NOTE | 2019-07-20 11:00 | NUR ---
REQUESTED AND GIVEN 2MG MORPHINE SLOW IVP FOR C/O GENERALIZED PAIN LEVEL 10. WILL MONITOR.
--- NOTE | 2019-07-20 13:00 | NUR ---
OSTOMY BLOW OUT. APPLIANCE CHANGED PER STAFF. INSTRUCTED IN USE OF APPLIANCE AND CARE FOR SAME.
[2019-07-20 13:18] VITALS: BP 114/85
--- NOTE | 2019-07-20 17:00 | NUR ---
FSBS 59. NOT TREATED AT THIS TIME SINCE PATIENT IS ASYMPTOMATIC AND EATING A LARGE MEAL. WILL MONITOR.
[2019-07-20 17:57] VITALS: BP 115/80
--- NOTE | 2019-07-20 19:30 | NUR ---
REQUESTED AND GIVNE 2MG MORPHINE SLOW IVP FOR C/O LEG PAIN LEVEL 10. WILL MONITOR. OSTOMY BLOW OUT AGAIN. CHANGED PER STAFF. DENIES NEEDS.
[2019-07-20 20:00] VITALS: BP 135/89
--- NOTE | 2019-07-20 20:00 | NUR ---
ALERT SITTING UP IN BED REQUESTING SUPPER TRAY BE WARMED UP, SEE SHIFT ASSESSEMENT, CALL LIGHT IN REACH
[2019-07-21 04:00] VITALS: BP 116/76
--- NOTE | 2019-07-21 04:02 | NUR ---
ACCU CHECK AT 48 ORANGE JUICE X 2 WITH PEANUT BUTTER AND DAVID CRACKERS WILL RECHECK, REMAINS ALERT STATES THIS IS WHAT HAPPENS WHEN I DONT EAT ALL THE TIME
--- NOTE | 2019-07-21 04:15 | NUR ---
ACCU CHECK RECHECKED NOW AT 98, REQUESTING SANDWICH TRAY, GIVEN
[2019-07-21 05:11] LABS: BASOPHILS 0.1 % (0-2); EOSINOPHILS 1.2 % (0-7); HEMATOCRIT 31.4 % (36.0-48.0); IMMATURE GRANULOCYTES 0.4 % (0-5); LYMPHOCYTES 44.1 % (15-50); MCH 26.7 pg (26.0-34.0); MCHC 31.8 g/dL (31.0-37.0); MEAN PLATELET VOLUME 9.5 fL (7.4-10.4); MONOCYTES 6.1 % (2-11); NEUTROPHILS 48.1 % (40-80); PLATELET COUNT 389 10x3/uL (130-400); RBC 3.74 10x6/uL (4.00-5.40); WBC 8.2 10x3/uL (4.8-10.8)
[2019-07-21 05:41] LABS: ALBUMIN 2.1 g/dL (3.4-5.0); BILIRUBIN - TOTAL 0.1 mg/dL (0.2-1.3); CALCIUM 8.1 mg/dL (8.5-10.1); CARBON DIOXIDE 20.4 mmol/L (21.0-32.0); MAGNESIUM - SERUM 1.8 mg/dL (1.8-2.4); PHOSPHOROUS 4.2 mg/dL (2.5-4.9); POTASSIUM - SERUM 3.4 mmol/L (3.5-5.1); PROTEIN - SERUM 6.9 g/dL (6.4-8.2)
[2019-07-21 09:29] VITALS: BP 116/85
--- NOTE | 2019-07-21 10:15 | NUR ---
PATIENT UP WALKING IN THE HALLS. REQUIRES SNACK TRAY. RECEIVED FROM DIETARY. CL IN REACH. WCTM
[2019-07-21 12:23] VITALS: BP 119/83
--- NOTE | 2019-07-21 14:05 | NUR ---
Nutrition follow-up: Diet: ADA consistent CHO PO intake 100% of meals, snacks Long acting insulin added; glucose now with some lows noted Wt: 91# pt has been going outside with only socks Will continue to provide food choices with selective menus and honor food preferences within diet restrictions. RDN following.
[2019-07-21 16:11] VITALS: BP 99/66
--- NOTE | 2019-07-21 19:15 | NUR ---
BEDSIDE REPORT RECEIVED. PATIENT GETTING CLEANED UP AT THIS TIME FROM COLOSTOMY LEAKAGE. PATIENT IS ALERT AND ORIENTED. REQUESTS PRN PAIN MEDICINE WHEN AVAILABLE. EDUCATED PATIENT ON PLAN OF CARE. PATIENT VERBALIZES UNDERSTANDING. CURRENTLY HAS DRESSINGS TO BILATERAL LOWER EXTREMETIES. PATIENT STATES THAT "THEY WERE DONE THIS AFTERNOON." ASSESSED PATIENT COCCYX WHICH CURRENTLY HAS A CLEAN AND DRY DRESSING TO THE COCCYX AREA. INSTRUCTED PATIENT THAT THE DRESSING WILL BE CHANGED THIS EVENING. PATIENT VERBALIZES UNDERSTANIDNG. PATIENT HAS SEVERAL FOOD ITEMS ON BEDSIDE TABLE. REQUESTS SNACKS WELL. PROVIDED DIABETIC DIET TEACHING, PATIENT STATES "I'VE HEARD ALL OF THIS IM JUST REALLY HUNGRY ALL THE TIME." PASSIVE WITH EDUCATION. CALL LIGHT IN REACH. PATIENT CURRENTLY ON FIRST STEP OVERLAY MATTRESS. DENIES FURTHER NEEDS AT THIS TIME. CPOC.
--- NOTE | 2019-07-21 19:56 | NUR ---
WAS REPORTED COLOSTOMY CAME LOOSE AT THE BOTTOM. REPLACE WAIVER AND BAG. IN PROCESS OF BATH VIA HYACINTH NOONAN.
[2019-07-21 20:00] VITALS: BP 104/70
--- NOTE | 2019-07-21 20:05 | NUR ---
WENT TO ASSESS PATIENT BLOOD SUGAR AND PATIENT STATED "I AM GOING FOR A WALK RIGHT NOW WE CAN DO THIS LATER."
--- NOTE | 2019-07-21 20:45 | NUR ---
PATIENT BACK IN ROOM. ASSESSED FSBS. SEE FLOW SHEET. PROVIDED PRN PAIN MEDICINE FOR PAIN RATING OF 10/10. PATIENT COMPLAINS OF "LEGS AND FEET" HURTING.
--- NOTE | 2019-07-21 21:40 | NUR ---
CHANGED COCCYX DRESSING PER ORDER
[2019-07-22] VITALS: BP 97/59
--- NOTE | 2019-07-22 00:07 | NUR ---
I have reviewed this patient and I concur with the Shift Assessment completed by the Licensed Practical Nurse today this shift.
--- NOTE | 2019-07-22 05:31 | NUR ---
IV LINES CHANGED PER PROTOCAL. SWAB CAPS AND LABELS USED PER PROTOCAL.
[2019-07-22 06:17] LABS: BASOPHILS 0.1 % (0-2); EOSINOPHILS 1.2 % (0-7); HEMATOCRIT 27.5 % (36.0-48.0); HEMOGLOBIN 8.7 g/dL (12-16); IMMATURE GRANULOCYTES 0.2 % (0-5); LYMPHOCYTES 30.6 % (15-50); MCH 26.8 pg (26.0-34.0); MCHC 31.6 g/dL (31.0-37.0); MCV 84.6 fL (80.0-100.0); MEAN PLATELET VOLUME 9.3 fL (7.4-10.4); MONOCYTES 5.7 % (2-11); NEUTROPHILS 62.2 % (40-80); PLATELET COUNT 350 10x3/uL (130-400); RBC 3.25 10x6/uL (4.00-5.40); RDW 16.4 % (11.5-14.5); WBC 9.3 10x3/uL (4.8-10.8)
[2019-07-22 06:33] LABS: ALBUMIN 1.9 g/dL (3.4-5.0); ALKALINE PHOSPHATASE 78 U/L (46-116); ALT (SGPT) 15 U/L (10-68); BILIRUBIN - TOTAL 0.06 mg/dL (0.2-1.3); CALC OSMOLALITY 278 mosm/kg (275-300); CALCIUM 8.1 mg/dL (8.5-10.1); CARBON DIOXIDE 22.7 mmol/L (21.0-32.0); CHLORIDE - SERUM 112 mmol/L (98-107); CREATININE - SERUM 0.9 mg/dL (0.6-1.3); GLUCOSE 89 mg/dL (74-106); MAGNESIUM - SERUM 1.8 mg/dL (1.8-2.4); PHOSPHOROUS 4.3 mg/dL (2.5-4.9); POTASSIUM - SERUM 4.6 mmol/L (3.5-5.1); PROTEIN - SERUM 6.3 g/dL (6.4-8.2); SODIUM 141 mmol/L (136-145); UREA NITROGEN 11 mg/dL (7-18); eGFR NON AFRICAN AMERICAN 77 mL/min (90-120)
[2019-07-22 07:50] VITALS: BP 122/76
--- NOTE | 2019-07-22 09:22 | NUR ---
FSBS RECHECK 47. PT GIVEN MORE ORANGE JUICE AND EATING BREAKFAST. WILL RECHECK.
[2019-07-22 13:24] VITALS: BP 137/86
[2019-07-22 16:43] VITALS: BP 104/61
[2019-07-22 19:30] VITALS: BP 118/73
[2019-07-23 00:30] VITALS: BP 121/74
--- NOTE | 2019-07-23 01:28 | NUR ---
PATIENT REQUESTED PAIN MEDICATION WHEN NORCO 7.5 WAS BROUGHT PATIENT REFUSED TO TAKE NORCO. sTATED NO I WANT MY MORPHINE, EDUCATED PATIENT THAT THE MORPHINE MY WORK FASTER BUT THE NORCO WILL LAST LONGER KEEPING HER PAIN UNDER CONTROL LONGER. sHE STATED NO I WANT THE MORPHINE. MORPHING GIVEN PER ORDER AT 2141. FSBS AT 0000 LI 38 RECHECK AGAING 38 INSTA GLCOSE 31 GM GIVEN PO, 1 CARTEN OF 2% MILK WITH 2 GRAMCRAKERS GIVEN, SHE REQUESTED 2 CUPS OF APPLE JUICE GIVEN. LAB RECHECK PER PROTOCOL WAS 39. RECHECK AT 0117 WAS 158.CRITICAL LAB SHEET FILL OUT AND PLACED ON CHART. TREATMENT WAS GIVEN PER PROTOCOL.
--- NOTE | 2019-07-23 03:07 | NUR ---
Called to patient room she stated she was having trouble getting her breath. O2 checked running from 76-82 % on room air. Called respitory and placed on O2 at 2l via n/c . Resp. arived we monitored O2 running 70-85% on room air 85&86 on 5 lpm. Resp placed on 10L hiflow n/c running 92%. cont. monitor.
[2019-07-23 05:11] VITALS: BP 118/69
[2019-07-23 06:21] LABS: ALBUMIN 1.9 g/dL (3.4-5.0); ALKALINE PHOSPHATASE 80 U/L (46-116); ALT (SGPT) 16 U/L (10-68); BILIRUBIN - TOTAL 0.23 mg/dL (0.2-1.3); CALCIUM 7.9 mg/dL (8.5-10.1); CARBON DIOXIDE 20.2 mmol/L (21.0-32.0); CHLORIDE - SERUM 108 mmol/L (98-107); CREATININE - SERUM 0.8 mg/dL (0.6-1.3); MAGNESIUM - SERUM 1.7 mg/dL (1.8-2.4); PHOSPHOROUS 4.2 mg/dL (2.5-4.9); POTASSIUM - SERUM 4.9 mmol/L (3.5-5.1); PROTEIN - SERUM 5.9 g/dL (6.4-8.2); SODIUM 137 mmol/L (136-145); UREA NITROGEN 13 mg/dL (7-18); eGFR NON AFRICAN AMERICAN 88 mL/min (90-120)
[2019-07-23 06:24] LABS: CALC OSMOLALITY 276 mosm/kg (275-300); GLUCOSE 154 mg/dL (74-106)
[2019-07-23 06:45] LABS: BASOPHILS 0.2 % (0-2); EOSINOPHILS 0.5 % (0-7); HEMATOCRIT 28.1 % (36.0-48.0); HEMOGLOBIN 8.7 g/dL (12-16); IMMATURE GRANULOCYTES 0.3 % (0-5); LYMPHOCYTES 14.5 % (15-50); MCH 26.9 pg (26.0-34.0); MONOCYTES 2.7 % (2-11); NEUTROPHILS 81.8 % (40-80); RBC 3.23 10x6/uL (4.00-5.40); RDW 16.5 % (11.5-14.5)
[2019-07-23 06:48] LABS: PLATELET COUNT 275 10x3/uL (130-400); WBC 13.3 10x3/uL (4.8-10.8)
[2019-07-23 07:53] VITALS: BP 111/78
--- NOTE | 2019-07-23 09:35 | NUR ---
PT ALERT X 4. BREATH SOUNDS CLEAR BILAT, 10L O2 PER HIGH FLOW NC. IV TO RIGHT HAND PATENT, DRESSING CDI. PT REPORTING PAIN OF 10, MEDICATED PER ORDERS, WILL MONITOR. SCABS/SORES COVERING BILAT UPPER AND LOWER EXTREMITIES. DRESSING TO COCCYX CDI. BED LOW, CALL LIGHT IN REACH. NO OTHER NEEDS AT THIS TIME.
[2019-07-23 12:16] VITALS: BP 124/54
[2019-07-23 17:04] VITALS: BP 100/64
[2019-07-23 19:30] VITALS: BP 121/72
[2019-07-24 00:42] VITALS: BP 118/67
--- NOTE | 2019-07-24 01:35 | NUR ---
Patient in bed resting no s/s of distress. call light and water in reach . Remains on contact isolation per protocol. IV in tact with no s/.s of infection noted at this time. Remains on O2 at 10/L high flow via n/c . Alert and orented able to voice needs and wants to staff. Clostomy replaced this shift.
[2019-07-24 05:40] VITALS: BP 121/72
[2019-07-24 06:52] LABS: BASOPHILS 0.1 % (0-2); EOSINOPHILS 0.7 % (0-7); HEMATOCRIT 25.4 % (36.0-48.0); HEMOGLOBIN 7.9 g/dL (12-16); IMMATURE GRANULOCYTES 0.3 % (0-5); LYMPHOCYTES 12.1 % (15-50); MCH 26.7 pg (26.0-34.0); MCHC 31.1 g/dL (31.0-37.0); MCV 85.8 fL (80.0-100.0); MEAN PLATELET VOLUME 9.5 fL (7.4-10.4); MONOCYTES 4.6 % (2-11); NEUTROPHILS 82.2 % (40-80); PLATELET COUNT 264 10x3/uL (130-400); RBC 2.96 10x6/uL (4.00-5.40); WBC 14.7 10x3/uL (4.8-10.8)
[2019-07-24 07:05] LABS: % SATURATION 10 % (15-55); IRON 13 ug/dl (35-150); TOTAL IRON BIND CAPACITY 127 ug/dl (260-445); UNSAT IRON BIND CAPACITY 114 ug/dl (150-375)
[2019-07-24 07:37] LABS: ALBUMIN 1.6 g/dL (3.4-5.0); ANION GAP 10.4 mmol/L (8-16); BILIRUBIN - TOTAL 0.34 mg/dL (0.2-1.3); CALCIUM 7.7 mg/dL (8.5-10.1); CARBON DIOXIDE 22.6 mmol/L (21.0-32.0); PROTEIN - SERUM 6.3 g/dL (6.4-8.2)
[2019-07-24 09:03] VITALS: BP 85/48
[2019-07-24 09:13] LABS: CKMB 2.2 U/L (0.0-3.6); CREATINE KINASE 99 UL (21-215); TROPONIN-I < 0.017 ng/mL (0.000-0.060)
--- NOTE | 2019-07-24 10:55 | NUR ---
PATIENT RECIEVED RESTING IN BED. 02 10L HIGH FLOW. SATS 90-93%. IV LEFT HAND PATENT WITH NS @30 INFUSING. CL IN REACH
[2019-07-24 12:30] LABS: CKMB 3.1 U/L (0.0-3.6); CREATINE KINASE 132 UL (21-215); TROPONIN-I < 0.017 ng/mL (0.000-0.060)
[2019-07-24 12:45] VITALS: BP 88/54
[2019-07-24 16:18] LABS: T4 THYROXIN - FREE 1.13 ng/dL (0.76-1.46); THYROID STIMULATING HORMONE 1.22 uIU/mL (0.36-3.74)
[2019-07-24 17:21] VITALS: BP 100/59
[2019-07-24 19:30] VITALS: BP 102/66
[2019-07-24 19:58] LABS: CREATINE KINASE 139 UL (21-215)
[2019-07-24 20:02] LABS: TROPONIN-I < 0.017 ng/mL (0.000-0.060)
--- NOTE | 2019-07-24 22:00 | NUR ---
A&O X 4, FAMILY AT BEDSIDE. REPORTS 8/10 PAIN TO COCCY AND BILAT LOWER EXTREMETIES. DRESSINGS CHANGED PER ORDER. VS STABLE. WILL CONTINUE TO MONITOR.
[2019-07-25 00:30] VITALS: BP 108/64
[2019-07-25 05:10] LABS: BASOPHILS 0 % (0-2); HEMATOCRIT 27.7 % (36.0-48.0); HEMOGLOBIN 8.8 g/dL (12-16); IMMATURE GRANULOCYTES 0.3 % (0-5); LYMPHOCYTES 10.8 % (15-50); MCH 26.7 pg (26.0-34.0); MCHC 31.8 g/dL (31.0-37.0); MCV 84.2 fL (80.0-100.0); MEAN PLATELET VOLUME 9.7 fL (7.4-10.4); MONOCYTES 3.8 % (2-11); NEUTROPHILS 83.1 % (40-80); PLATELET COUNT 304 10x3/uL (130-400); RBC 3.29 10x6/uL (4.00-5.40); RDW 15.9 % (11.5-14.5); WBC 13.3 10x3/uL (4.8-10.8)
[2019-07-25 05:30] VITALS: BP 112/61
[2019-07-25 05:31] LABS: ALBUMIN 1.8 g/dL (3.4-5.0); ANION GAP 12.7 mmol/L (8-16); BILIRUBIN - TOTAL 0.55 mg/dL (0.2-1.3); CALCIUM 8.1 mg/dL (8.5-10.1); CARBON DIOXIDE 20.7 mmol/L (21.0-32.0); POTASSIUM - SERUM 4.4 mmol/L (3.5-5.1); PROTEIN - SERUM 6.8 g/dL (6.4-8.2)
--- NOTE | 2019-07-25 05:55 | NUR ---
I have reviewed this patient and I concur with the Shift Assessment completed by the Licensed Practical Nurse today this shift.
--- NOTE | 2019-07-25 07:48 | NUR ---
PATIENT RESTING WITH HIGH FLOW 15L TO DRINK FLUIDS AND MEAL. WILL PLACE BACK ON BIPAP WHEN FINISHED. DRESSINGS INTACT TO BLE AND COCCYX. MOTHER AT SIDE. CL IN REACH
[2019-07-25 09:21] VITALS: BP 106/69
[2019-07-25 13:20] VITALS: BP 102/58
--- NOTE | 2019-07-25 14:44 | NUR ---
NUTRITION F/U PT WITH GOOD INTAKE BREAKFAST THIS AM BUT NURSING REPORTS PT UNABLE TO TOLERATE BEING OFF BIPAP TO EAT LUNCH. WILL CONTINUE TO MONITOR PO INTAKE, PT PROGRESS. RD FOLLOWING
[2019-07-25 17:18] VITALS: BP 98/66
--- NOTE | 2019-07-25 18:49 | NUR ---
PATIENT ABLE TO TOLERATE DINNER WITH BI PAP OFF AND HIGH FLOW AT 15L. PATIENT DENIES ANY NEEDS. CL IN REACH
[2019-07-25 19:30] VITALS: BP 100/64
--- NOTE | 2019-07-25 21:00 | NUR ---
A&O X 4, SUPINE IN BED. REPORTS PAIN OF 8/10. REQUESTS SNACK. MOTHER BEDSIDE. NO FURTHER NEEDS AT THIS TIME. SPO2 93% ON NASAL CANNULA, WILL CONTINUE TO MONITOR.
[2019-07-26] VITALS (12 sets, daily range): BP systolic 98–124; BP diastolic 57–88; Ht 165.1 cm; Wt 59.6 kg
--- NOTE | 2019-07-26 05:10 | NUR ---
I have reviewed this patient and I concur with the Shift Assessment completed by the Licensed Practical Nurse today this shift.
[2019-07-26 07:41] LABS: ALBUMIN 1.9 g/dL (3.4-5.0); ALKALINE PHOSPHATASE 106 U/L (46-116); BILIRUBIN - TOTAL 0.25 mg/dL (0.2-1.3); CALC OSMOLALITY 272 mosm/kg (275-300); CALCIUM 8.1 mg/dL (8.5-10.1); CARBON DIOXIDE 23.9 mmol/L (21.0-32.0); CHLORIDE - SERUM 105 mmol/L (98-107); CREATININE - SERUM 0.8 mg/dL (0.6-1.3); GLUCOSE 143 mg/dL (74-106); POTASSIUM - SERUM 4.5 mmol/L (3.5-5.1); PROTEIN - SERUM 7.3 g/dL (6.4-8.2); SODIUM 135 mmol/L (136-145); UREA NITROGEN 15 mg/dL (7-18); eGFR NON AFRICAN AMERICAN 88 mL/min (90-120)
[2019-07-26 07:45] LABS: ALT (SGPT) 15 U/L (10-68); BASOPHILS 0 % (0-2); EOSINOPHILS 3.7 % (0-7); HEMATOCRIT 28.6 % (36.0-48.0); HEMOGLOBIN 8.9 g/dL (12-16); IMMATURE GRANULOCYTES 0.2 % (0-5); MCH 26.7 pg (26.0-34.0); MCHC 31.1 g/dL (31.0-37.0); MCV 85.9 fL (80.0-100.0); MEAN PLATELET VOLUME 9.3 fL (7.4-10.4); MONOCYTES 2.6 % (2-11); NEUTROPHILS 78.5 % (40-80); PLATELET COUNT 300 10x3/uL (130-400); RBC 3.33 10x6/uL (4.00-5.40); WBC 10.7 10x3/uL (4.8-10.8)
--- NOTE | 2019-07-26 10:19 | NUR ---
TO BEDSIDE, PATIENT ON BIPAP AND POX IS 91% QUESTIONED THE 81% POX AND BULLARD MACHINE OPERATOR STATES SHE WAS EATING DURING THIS TIME.
--- NOTE | 2019-07-26 12:40 | NUR ---
0700 RESTING IN BED, NO DISTRESS NOTED, BIPAP IN PLACE, IV INFUSING, FAMILY IN ROOM, CONT TO MONITOR RESP STATUS
--- NOTE | 2019-07-26 16:14 | NUR ---
1610 report called to icu and pt taken per bed 1 due to results of abg from dr foy
--- NOTE | 2019-07-26 17:50 | NUR ---
PT HAD INCONTINENT EPISODE. GOING TO REPLACE AIR OVERLAY MATTRESS. ORDER RECEIVED FROM DR SILVEIRA TO PLACE ALMONTE
--- NOTE | 2019-07-26 19:00 | NUR ---
REPORT RECEIVED. PT AAOX4, RESTING IN BED. BIPAP IN PLACE, PIV IN RIGHT WRIST AND LT AC, SEE IV FLOWSHEET. ASSESSMENT COMPLETED, SEE FLOWSHEET. DRESSINGS ON BILAT LEGS AND COCCYX CDI. WILL CONTINUE TO MONITOR.
--- NOTE | 2019-07-26 21:00 | NUR ---
PT RESTING IN BED, NO ACUTE DISTRESS NOTED. PM MEDS GIVEN WITHOUT DIFFICULTY.
--- NOTE | 2019-07-26 23:00 | NUR ---
PT RESTING IN BED NO ACUTE DISTRESS NOTED.
[2019-07-27] VITALS (24 sets, daily range): BP systolic 99–125; BP diastolic 65–94
--- NOTE | 2019-07-27 00:20 | NUR ---
HYPOGLYCEMIC PROTOCOL INITIATED, BS 44. WILL CONTINUE TO MONITOR AND TREAT.
--- NOTE | 2019-07-27 01:00 | NUR ---
PT RESTING IN BED, NO ACUTE DISTRESS NOTED AT THIS TIME.
--- NOTE | 2019-07-27 03:00 | NUR ---
PT RESTING IN BED, NO ACUTE DISTRESS NOTED AT THIS TIME.
[2019-07-27 04:26] LABS: BASOPHILS 0.1 % (0-2); EOSINOPHILS 5.7 % (0-7); HEMATOCRIT 26.3 % (36.0-48.0); HEMOGLOBIN 8.2 g/dL (12-16); IMMATURE GRANULOCYTES 0.3 % (0-5); LYMPHOCYTES 19.3 % (15-50); MCH 26.4 pg (26.0-34.0); MCHC 31.2 g/dL (31.0-37.0); MCV 84.6 fL (80.0-100.0); MONOCYTES 2.3 % (2-11); NEUTROPHILS 72.3 % (40-80); PLATELET COUNT 342 10x3/uL (130-400); RBC 3.11 10x6/uL (4.00-5.40); RDW 16.3 % (11.5-14.5)
[2019-07-27 04:27] LABS: WBC 7.3 10x3/uL (4.8-10.8)
[2019-07-27 04:38] LABS: ALBUMIN 1.7 g/dL (3.4-5.0); ALKALINE PHOSPHATASE 109 U/L (46-116); ALT (SGPT) 12 U/L (10-68); BILIRUBIN - TOTAL 0.26 mg/dL (0.2-1.3); CALCIUM 7.8 mg/dL (8.5-10.1); CHLORIDE - SERUM 109 mmol/L (98-107); CREATININE - SERUM 0.6 mg/dL (0.6-1.3); POTASSIUM - SERUM 3.9 mmol/L (3.5-5.1); PROTEIN - SERUM 6.7 g/dL (6.4-8.2); SODIUM 139 mmol/L (136-145); eGFR NON AFRICAN AMERICAN > 90 mL/min (90-120)
[2019-07-27 04:40] LABS: CALC OSMOLALITY 274 mosm/kg (275-300); GLUCOSE 55 mg/dL (74-106); UREA NITROGEN 10 mg/dL (7-18)
--- NOTE | 2019-07-27 05:00 | NUR ---
PT C/O PAIN IN LEGS, REPOSITIONED TOLERATED. VITALS STABLE AT THIS TIME.
--- NOTE | 2019-07-27 07:00 | NUR ---
REPORT RECEIVED FROM THE OFF GOING RN. SEE ASSESSMENT IN THE PTS FLOW SHEET. VSS. PT ON THE BIPAP AT THIS TIME. ONCE PT ROLLED, PT DESATURATED TO 78% PT ASSISTED FURTHER UP IN BED AND HOB ELEVATED. O2 SATURATION INCREASED SLOWEY TO 90 AND ABOVE. PT KEEPS STATING THAT SHE IS HUNGRY, HOWEVER PM NURSE HAD TO TREAT HYPOGLCEMIA PER ORDERS. MULTIPLE ULCERATIONS NOTED TO THE LEGS WITH DRESSING C/D/I. CALL LIGHT IN REACH. WILL CONT POC.
--- NOTE | 2019-07-27 08:00 | NUR ---
HOLDING INSULIN. DUE TO HYPOGLYCEMIA THIS AM. WILL RECHECK.
--- NOTE | 2019-07-27 11:00 | NUR ---
REASSESSMENT COMPLETED. VSS. WILL CONT POC.
--- NOTE | 2019-07-27 13:25 | EC ---
PATIENT:SOFIA FONTENOT DATE OF SERVICE: 07/17/19 SEX: F MEDICAL RECORD: [id number] DATE OF : [birth year] LOCATION:[facility] D230 AGE OF PATIENT: 34 ADMISSION DATE: 07/17/19 REFERRING PHYSICIAN: INTERPRETING PHYSICIAN: LYNN RICHARDS MD ECHOCARDIOGRAM REPORT ECHO CHARGES 4 ECHO COMPLETE Date: 07/24/19 CLINICAL DIAGNOSIS: LVH; R/O VEG ECHOCARDIOGRAPHIC MEASUREMENTS (adult normal given) AC root (d.<3.7cm) 2.4 cm LV Septum d (<1.2 cm> 0.8 cm Valve Excursion 1.5 cm LV Septum (systole) 0.9 cm Left Atria (s.<4.0cm> 2.5 cm LVPW d(<1.2cm) 0.5 cm RV (d.<2.3cm) 4.8 cm LVPW (sytole) 0.9 cm LV diastole(<5.6CM) 3.9 cm MV E-F(>70mm/sec) cm LV systole 3.0 cm LVOT Diameter 1.8 cm MV exc.(>10mm) cm Est.ejection fraction (50-75%) % DOPPLER: LVIT cm/sec A 62 cm/sec E 78 cm/sec LA cm/sec RVSP 52.8 mmHg LVOT 103 cm/sec AOP1/2T m/s Asc. Ao 119 cm/sec RVOT 65 cm/sec RA cm/sec PA 68 cm/sec AV Gradient Peak 5.7 mmHg AV Mean 3.4 mmHg AV Area 2.1 cm MV Gradient Peak 4.7 mmHg MV Mean 2.5 mmHg MV Area cm COMMENTS: Black Leather Trimmer: Lindsey BLACK Fumigator And Sterilizer: 3 Dr. Nazario TAPE# PACS Pericardial Effusion N DATE OF SERVICE: Adequate 2D, color flow imaging, spectral Doppler, and M-Mode No LVH. LV internal dimension is normal. Wall motion is normal. EF is greater than or equal to 55%. Aortic valve is well visualized, tricuspid, with no evidence of stenosis by Doppler interrogation. No evidence of vegetation. Left atrium has normal dimensions. Mitral valve again is well visualized. No evidence of vegetation. Trivial MR. Right-sided chambers were grossly normal. Right sided valves appear normal. Trivial TR with color-flow imaging. No ECHOCARDIOGRAM REPORT [id number] SOFIA FONTENOT evidence of vegetation, all 4 cardiac valves. TRANSINT:[id number] Voice Confirmation ID: [id number] DOCUMENT ID: [id number] LYNN RICHARDS MD at 1325 CC: [id number] DICTATION DATE: 07/25/19 1342 SWING DRIVER: 07/25/19 1544 ADM IN [place] [id number] [place] [address]
--- NOTE | 2019-07-27 13:30 | NUR ---
Nutrition follow-up: Received order to begin TF when NGT placed RDN will order Glucerna 1.0 arthur @ 25 ml/hr with increase to goal rate of 65 ml/hr. Flush with 100 ml H2O q 4 hours RDN following.
--- NOTE | 2019-07-27 13:46 | NUR ---
DR KRAFT CALLED AND STATED TO TRY VAPOTHERM AND IF THE PT CAN TOLERATE EATING, CONT. IF PT IS UNABLE TO EAT WITH THE VAPOTHERM, INTUBATE.
--- NOTE | 2019-07-27 14:56 | NUR ---
PT ON VAPOTHERM. PT TOLERATING WELL. FOOD PROVIDED FOR THE PT AND PT EATING WITH NO ISSUES. VSS. WILL CONT POC.
--- NOTE | 2019-07-27 15:09 | NUR ---
DR KRAFT CALLED AND STATED THAT PT IS TO BE ON BIPAP HS WITH NO BREAKS. NPO WHILE ON BIPAP.
--- NOTE | 2019-07-27 21:30 | NUR ---
Report received from previous nurse. Pt is laying in bed on the bipap at this time. No needs voiced. No s/s of distress noted. Will continue to monitor.
--- NOTE | 2019-07-27 21:43 | MORECARE ---
CASE MANAGEMENT DISCHARGE SUMMARY PATIENT: SOFIA FONTENOT UNIT: [id number] ADM DATE: 07/17/19 AGE: 34 : [birth year] SEX: F ROOM/BED: D.2301 AUTHOR: TRINITY,DOC PHYSICIAN: REFERRING PHYSICIAN: LYNN VO MD DATE OF SERVICE: 07/27/19 Discharge Plan Patient Name: SOFIA FONTENOT Facility: [facility]:[place] : 1985 Planned Disposition: Home or Self Care Anticipated Discharge Date: Discharge Date: Expected LOS: Initial Reviewer: [id number] Initial Review Date: 07/17/2019 Generated: 07/27/19 10:43 pm Comments DCP- Discharge Planning Updated by [id number]: Fern Middleton on 07/27/19 8:[address] Late Entry 07/27/19 @ [address]/PT eval d/t physicians and nursing discussing intubation currently. CM will continue to follow and assist as needed with discharge planning / needs. DCP- Discharge Planning Updated by [id number]: Ally Cantor on 07/19/19 9:[address] Patient Name: SOFIA FONTENOT Admission Status: ER Accout number: [id number] Admission Date: 07-17-2019 : 1985 Admission Diagnosis: Attending: MICHAEL Current LOS: 2 Anticipated DC Date: Planned Disposition: Home or Self Care Primary Insurance: MEDICAID [place] Discharge Planning Comments: CM met with patient to complete initial dc planning assessment. CM educated patient on the CM role and verbal consent given by patient to complete assessment. Patient lives with her friend, Cyndi. At discharge patient plans to return to her home with her friend and feels this is a safe discharge. She stated that her mother helps her with medicine and bathing. She does not have a PCP. She is disabled, receives 500.00 per month. She did have food stamps, but needs to go back to the [facility] office and apply again for them, She knows where to go. She does not use any other community resources. Her mom or her friend Cyndi help her when needed. CM discussed availability of home health, rehab services, and medical equipment. She has a walker, BSC, and Ostomy supplies that she gets from [facility]. She stated that she has running water, electricity and food in the home. She does not feel like she is in danger and feels safe returning back home with Cyndi. Patient denied known discharge needs at this time. CM will continue to follow and will assist as needed with dc plans/needs. Quality Assurance Monitor Body: Ally Cantor DCPIA - Discharge Planning Initial Assessment Updated by [email or web address]: Ally Cantor on 07/19/19 10:09 am * Is the patient Alert and Oriented? Yes * How many steps to enter\exit or inside your home? * Pharmacy [facility] * Preadmission Environment Home with Family * ADLs Partial Dependent * Partial ADLs (Assistance needed) Ambulation Bathing Medication Management * Equipment Bedside Commode Glucometer Ostomy Supplies Rolling Walker * List name and contact numbers for known caregivers / representatives who currently or will assist patient after discharge: ABAD (MOTHER) [phone] CYNDI (FRIEND) * Verbal permission to speak to the caregivers and representatives has been obtained from the patient. N/A * Community resources currently utilized None * Additional services required to return to the preadmission environment? Yes * Has this patient been hospitalized within the prior 30 days at any hospital? No Coverage Notice Reviewer: [id number] - Ally Cantor Notice Issued Date-Time: 07/19/2019 8:50 Notice Type: Patient Choice Letter Notice Delivered To: Patient Relationship to Patient: Oven Dumper Name: Delivery Method: HAND - Hand Delivered Debbie Days: Prior Verbal Notification: Recipient Understood Notice: Yes Recipient Signature: Yes Med Rec Note Co-signed by Attending: Coverage Notice Comment: anthony for DME [facility] ostomy supplies Last DP export: 07/19/19 9:16 am Patient Name: SOFIA FONTENOT Page [id number] at 2143 All edits/amendments must be made on the electronic document DICTATION DATE: 07/27/192142 FRAME ASSEMBLER: MARISSA 07/27/192142 RPT#: [id number] DC DATE: STATUS: ADM IN [facility] [address] [place] [address] END OF REPORT
--- NOTE | 2019-07-27 23:00 | NUR ---
Reassessment completed, see flowsheet for details. Pt is laying in bed on the bipap. No s/s of distress noted. No needs voiced at this time. Will continue to monitor.
[2019-07-28] VITALS (24 sets, daily range): BP systolic 99–138; BP diastolic 63–99
--- NOTE | 2019-07-28 01:00 | NUR ---
Pt is laying in bed with eyes closed. No needs voiced at this time. No s/s of distress noted. Will continue to monitor.
--- NOTE | 2019-07-28 03:00 | NUR ---
Reassessment completed, see flowsheet for details. Dressing changes to legs and coccyx completed at this time. Full g bed bath and linen change completed. No further needs voiced at this time. No s/s of distress. Will continue to monitor.
--- NOTE | 2019-07-28 05:00 | NUR ---
Pt is laying in bed on bipap at this time with eyes closed. No needs voiced. No s/s of distress noted. Will continue to monitor.
--- NOTE | 2019-07-28 07:00 | NUR ---
PT RESTING IN BED, VSS AND WNL. PT ON BIPAP. PT ASKING FOR OMLETTE AND GRITS ALONG WITH BREAKFAST. NO SIGNS OF DISTRESS NOTED, PT ANSWERS ALL QUESTIONS. WILL CONT TO FOLLOW POC
[2019-07-28 07:51] LABS: BASOPHILS 0.3 % (0-2); HEMATOCRIT 29.6 % (36.0-48.0); HEMOGLOBIN 9.1 g/dL (12-16); IMMATURE GRANULOCYTES 0.3 % (0-5); LYMPHOCYTES 37.5 % (15-50); MCH 26.8 pg (26.0-34.0); MCHC 30.7 g/dL (31.0-37.0); MEAN PLATELET VOLUME 9.5 fL (7.4-10.4); MONOCYTES 3.2 % (2-11); NEUTROPHILS 53.7 % (40-80); PLATELET COUNT 377 10x3/uL (130-400); RBC 3.39 10x6/uL (4.00-5.40); RDW 16.4 % (11.5-14.5)
[2019-07-28 07:55] LABS: MCV 87.3 fL (80.0-100.0)
[2019-07-28 08:20] LABS: ALKALINE PHOSPHATASE 129 U/L (46-116); ALT (SGPT) 14 U/L (10-68); BILIRUBIN - TOTAL 0.19 mg/dL (0.2-1.3); CALCIUM 8.3 mg/dL (8.5-10.1); CARBON DIOXIDE 25.1 mmol/L (21.0-32.0); CHLORIDE - SERUM 111 mmol/L (98-107); PROTEIN - SERUM 6.7 g/dL (6.4-8.2); SODIUM 142 mmol/L (136-145); UREA NITROGEN 12 mg/dL (7-18)
[2019-07-28 08:25] LABS: CALC OSMOLALITY 282 mosm/kg (275-300); CREATININE - SERUM 0.9 mg/dL (0.6-1.3); GLUCOSE 99 mg/dL (74-106); eGFR NON AFRICAN AMERICAN 77 mL/min (90-120)
--- NOTE | 2019-07-28 08:56 | NUR ---
Nutrition follow-up: Pt eating breakfast without issue PO intake good at this time per nursing Glucose under better control. Wt: 144# No NGT place or TF started at this time RDN following.
--- NOTE | 2019-07-28 09:00 | NUR ---
PT REQUEST FOR OSTOMY POUCH TO BE EMPTIED, VSS AND WNL. PT ATE 100% OF BREAKFAST. BED ALARM ON, NO SIGNS OF DISTRESS NOTED. WILL CONT TO FOLLOW POC
--- NOTE | 2019-07-28 11:06 | NUR ---
PT RESTING IN BED ASLEEP. NO SIGNS OF DISTRESS NOTED AT THIS TIME, VSS AND WNL. WILL CONT TO FOLLOW POC
--- NOTE | 2019-07-28 13:00 | NUR ---
PT LAYING IN BED WATCHING TV, BIPAP ON AT 40% VSS AND WNL. BED ALARM ON. WILL CONT TO FOLLOW POC
--- NOTE | 2019-07-28 17:00 | NUR ---
PATIENT TRAY PROVIDED TO PT. VSS AND WNL. RESP THERAPY PLACED PT ON VAPOTHERM FOR MEAL. NO SIGNS OF DISTRESS NOTED AT THIS TIME, WILL CONT TO FOLLOW POC
--- NOTE | 2019-07-28 19:00 | NUR ---
REPORT RECEIVED. INITIAL ASSESSMENT COMPLETE SEE FLOWSHEET. PT NEEDING COLOSTOMY EMPTIED GIVEN GLOVES AND BASIN WELL WASH CLOTHS PT ABLE TO EMPTY INDEPENDENTLY. GIVEN HAND ARBORICULTURIST AND WASH CLOTHS
--- NOTE | 2019-07-28 19:30 | NUR ---
ANSWERED PTS CALL LIGHT SHE IS REQUESTING DYAN HERRERA
--- NOTE | 2019-07-28 20:05 | NUR ---
ANSWERED PTS CALL LIGHT SHE IS REQUESTING MORPHINE. INFORMED IT WAS TOO EARLY UNABLE TO GIVE YET BUT THAT SHE DOES HAVE HYDROCODONE ORAL THAT SHE CAN ALSO TAKE. PT WAS CONCERNED IF SHE TOOK IT SHE WOULD NOT BE ABLE TO GET THE MORPHINE. SHE STATES SHE KNOWS THE HYDROCODONE WILL NOT HELP PAIN LEVEL MUCH. INFORMED IF SHE IS STILL IN PAIN WHEN MORPHINE DUE SHE WILL STILL BE ABLE TO GET. PT STATED OK PAIN 10 ON 1-10 SCALE ALL OVER BUT LEGS AND FEET HURTING AND SHE STATES CHRONIC PAIN.
--- NOTE | 2019-07-28 20:45 | NUR ---
ANSWERED PTS CALL LIGHT PT REQUESTING CRACKERS AND ANOTHER SNACK. THE LAST COUPLE CRACKERS ON UNIT GIVEN AND WATER WITH DIET SODA GIVEN
--- NOTE | 2019-07-28 21:15 | NUR ---
ANSWERED PTS CALL LIGHT PT NEEDS PILLOW PLACED BETWEEN KNEES ASSISTED WITH POSITIONING
--- NOTE | 2019-07-28 21:35 | NUR ---
ANSWERED PTS CALL LIGHT PT NEEDING COLOSTOMY EMPTIED. GLOVES WARM WASH CLOTHS GIVEN AND HAND BLEACH PACKER. PT EMPTIES MODERATE AMOUNT LIQUID LIGHT BROWN STOOL INDEPENDENTLY
--- NOTE | 2019-07-28 23:00 | NUR ---
REASSESSMENT NO CHANGES BLE DRESSING CHANGES PAINT WITH BETADINE COVER WITH GAUZE WRAP WITH KERLEX SECURE WITH TAPE.DRESSING TO RIGHT BUTTOCK CHANGED WITH DAKINS WET TO DRY GAUZE AND SECURED WITH TAPE.
[2019-07-29] VITALS (23 sets, daily range): BP systolic 106–155; BP diastolic 74–104
--- NOTE | 2019-07-29 03:00 | NUR ---
REASSESSMENT COMPLETE CPOC. PT CONTINUES TO REQUEST MORPHINE AND PAIN PILL SEE EMAR PRN FOR MED TIMES. PT STATES SHE TAKES PERCOCET AND HYDROCODONE 10 MG AT HOME FOR CHRONIC PAIN WITH BLE
--- NOTE | 2019-07-29 06:00 | NUR ---
BLE EXTREMITY DRESSING CHANGED PAINT WITH BETADINE COVER WITH GAUZE WRAP TOES TO KNEES WITH KERLEX SECURED WITH TAPE
--- NOTE | 2019-07-29 08:08 | NUR ---
PT AWAKE AND ALERT, EATING BREAKFAST. DENIES PROBLEMS. BIPAP OFF AND VAPOTHERM PLACED AT 30% FI02 AND 40L.
--- NOTE | 2019-07-29 10:44 | NUR ---
ASSISTED WITH EMPTYING COLOSTOMY.
--- NOTE | 2019-07-29 16:13 | NUR ---
IV OUT TO L AC. WILL RESITE IV.
--- NOTE | 2019-07-29 18:40 | NUR ---
1700 RESITE TO R [facility], IV ABX RESUMED.
--- NOTE | 2019-07-29 19:05 | NUR ---
PT STATES I NEED A BEDPAN "I REALLY FEEL LIKE I NEED TO HAVE A BOWEL MOVEMENT FROM MY BOTTOM NOT FROM MY COLOSTOMY". RN ASKED IF SHE HAS PASSED ANYTHING RECTALLY SINCE COLOSTOMY WAS PLACED SHE SAID NO BUT I REALLY FEEL LIKE I NEED TO RIGHT NOW". PT ABLE TO INDEPENDENTLY PLACE SELF ON BED TEJADA. CALL LIGHT IN REACH WILL MONITOR
--- NOTE | 2019-07-29 20:51 | NUR ---
PT C/O OF PAIN AND ITCHING PRN MEDS GIVEN
--- NOTE | 2019-07-29 21:00 | NUR ---
ANSWERED PTS CALL LIGHT SHE IS REQUESTING BEDTIME SNACK AND DRINK. GIVEN CRACKERS AND UNSWEETENED TEA
--- NOTE | 2019-07-29 21:25 | NUR ---
PT ACCIDENTLY SPILLED FULL CUP OF ICE TEA ON SELF. COMPLETE CHG BATH AND COMPLETE LINEN CHANGE WELL BILATERAL LOWER EXTREMITY DRESSINGS CHANGED. PT HAS MULTIPLE DARK SCABBED AREAS ON LEGS AND BILATERAL FEET. PAINTED WITH BETADINE COVERED WITH GAUZE WRAPPED WITH KERLEX FROM TOES TO KNEES SECURED WITH TAPE. DRESSING CHANGED TO COCCYX CLEANSED WITH DAKINS 1/4 STRENGTH SET TO DRY WITH DAKINS 1/4 COVERED WITH GAUZE SECURED WITH TAPE.
[2019-07-30] VITALS (16 sets, daily range): BP systolic 108–160; BP diastolic 74–106
--- NOTE | 2019-07-30 05:00 | NUR ---
SUPPLIES FOR PT TO CHANGE OUT OSTOMY APPLIANCE RETRIEVED FROM ANOTHER UNIT NOT AVAILABLE ON OUR UNIT. PT INDEPENDENTLY CHANGES OSTOMY WAFER AND BAG. PT HAS LARGE AMOUNT OF LIQUID LIGHT BROWN STOOL IN BAG.
--- NOTE | 2019-07-30 07:17 | NUR ---
PT AWAKE AND ALERT. ASSESSMENT COMPLETE,VSS,[id number].
--- NOTE | 2019-07-30 11:03 | NUR ---
DR RODRIGUEZIN HERE ON ROUNDS. REC'D VORDER FOR TRANSFER TO FLOOR. DR KRAFT ROUNDED THIS AM AND HE WELL ORDERED FOR TRANSFER OUT OF ICU.
--- NOTE | 2019-07-30 18:06 | NUR ---
IV TO RIGHT HAND WILL NOT FLUSH. D/C WITH CATHETER TIP INTACT. 22G RESITED TO LEFT FOREARM INFUSING NS @ 30ML/HR. PT ALSO STATED SHE WAS IN PAIN DUE TO DRESSINGS BEING CHANGED BY DR. ENGLE, MORPHINE RECIEVED PER ORDER.
--- NOTE | 2019-07-30 22:14 | NUR ---
INITIAL ROUNDS COMPLETED AT 191 HRS. DAVID CRACKERS GIVEN PER REQUEST. ASSESSMENT COMPLETED AT 2019 HRS. VSS. ALERT AND ORIENTED TO PERSON, PLACE AND TIME. GONZALES. IV TO LFA WITH NS AT 30CC/HR. IV PATENT. LUNGS CTA. DRSG TO COCCYX CLEAN,DRY AND INTACT. DRESSING TO BILAT LEGS CLEAN,DRY AND INTACT. SORE NOTED TO L INDEX FINGER. DIGIT MISSING FROM R HAND. COLOSTOMY DRAINING SOFT BROWN STOOL. ALMONTE DRAINING YELLOW URINE. PT ON FIRST STEP AIR OVERLAY MATTRESS. 1999 FSBS 271. 10 UNITS REG INSULIN GIVEN SUB-Q TO UPPER L ARM. SCHEDULED LANTUS GIVEN. PM MEDS GIVEN. DAKINS DRESSING WET TO DRY DONE PER ORDERS USING STERILE TECHNIQUE. WOUND STAGE APPROX 6CM X3CM X2.5CM. SCANT PINK DRAINAGE NOTED. NORCO 7.5MG PO GIVENFOR PAIN AFTER DRESSING CHANGE. PT CURRENTLY RESTING WITH EYES CLOSED. RESP EVEN AND REGULAR. SR UP X2, CALL LIGHT WITHIN REACH.
--- NOTE | 2019-07-30 23:31 | NUR ---
PT STATES PAIN LEVEL STILL 02/18. NO DISTRESS NOTED. CALL LIGHT WITHIN REACH.
--- NOTE | 2019-07-31 02:07 | NUR ---
24 HR URINE EXPLAINED TO PT. STATED UNDESTANDING. CALL LIGHT WITHIN REACH.
--- NOTE | 2019-07-31 04:02 | NUR ---
FSBS 349. 12 UNITS REG INSULIN GIVEN SUB-Q TO UPPER R ARM. SR UP X2, CALL LIGHT WITHIN REACH.
[2019-07-31 04:39] VITALS: BP 131/89
--- NOTE | 2019-07-31 05:27 | NUR ---
VSS THROUGHOUT NIGHT. 24 HR URINE IN PROGRESS. PT CONTINUALLY ASKING FOR FOOD AND JUICE/SODA THEN SEEMS PUZZLED WHEN HER BS IS GREATER THAN 300. NEEDS MET; WILL CONTINUE TO MONITOR.
--- NOTE | 2019-07-31 07:20 | NUR ---
REPORT RECIEVED. PT SITTING SEMI FOWLERS IN BED.RR EVEN AND UNLABORED. SHE HAS A L FA PIV INFUSING NS @ 30. SHE HAS A ALMONTE DRAINING URINE AND WE ARE CURRENTLY COLLECTING A 24 HR SPECIMEM. BED LOCKED AND IN LOWEST POSITION, CALL LIGHT WITHIN REACH. WILL CTM
[2019-07-31 08:43] VITALS: BP 135/86
[2019-07-31 12:29] VITALS: BP 122/83
[2019-07-31 13:19] LABS: BASOPHILS 0.1 % (0-2); EOSINOPHILS 0.2 % (0-7); HEMATOCRIT 34.8 % (36.0-48.0); HEMOGLOBIN 10.6 g/dL (12-16); IMMATURE GRANULOCYTES 1.1 % (0-5); LYMPHOCYTES 26.9 % (15-50); MCH 27.2 pg (26.0-34.0); MCHC 30.5 g/dL (31.0-37.0); MCV 89.2 fL (80.0-100.0); MEAN PLATELET VOLUME 9.1 fL (7.4-10.4); MONOCYTES 4.1 % (2-11); NEUTROPHILS 67.6 % (40-80); RDW 16.3 % (11.5-14.5)
[2019-07-31 13:46] LABS: CALC OSMOLALITY 284 mosm/kg (275-300); CALCIUM 8.3 mg/dL (8.5-10.1); CARBON DIOXIDE 23.4 mmol/L (21.0-32.0); CHLORIDE - SERUM 105 mmol/L (98-107); CREATININE - SERUM 0.9 mg/dL (0.6-1.3); SODIUM 138 mmol/L (136-145); UREA NITROGEN 27 mg/dL (7-18); eGFR NON AFRICAN AMERICAN 77 mL/min (90-120)
[2019-07-31 13:47] LABS: GLUCOSE 173 mg/dL (74-106); PLATELET COUNT 553 10x3/uL (130-400)
--- NOTE | 2019-07-31 15:53 | NUR ---
I have reviewed this patient and I concur with the Shift Assessment completed by the Licensed Practical Nurse today this shift.
[2019-07-31 17:35] VITALS: BP 110/73
--- NOTE | 2019-07-31 19:56 | NUR ---
RECEIVED UP IN BED WITH EYES OPEN AND TV ON. ALERT AND ORIENTED X4. UP AD YAIMA. DSG TO BILATERALLY LEGS AND FEET. ALSO, TO COCCYX. ALL ARE CDI. REMAINS ON ROOM AIR. IV TO LEFT FA WITH NS AT 30CC/HR. NO REDFNESS OR SWELLING TO AREA. F/C INTACT WITH CLEAR YELLOW DRAINAGE TO BED SIDE DRAINAGE BAG. CONT TO COLLECT 24 HR URINE. COLOSTOMY TO LLQ. EDUCATED ON CONTROLLED BLOOD SUGARS FOR HEALING. EXPLAINED WE WOULD NOT BE GIVING HER ICE CREAM ALL NIGHT AND OFFER ALTERNATIVE OF SANDWICH BOX. VOICED UNDERSTANDING AND ACCEPTED THE SANDWICH BOX. THEN ASKED FOR PAIN MEDICATIONS AND EXPLAINED IT WASS'NT DUE TILL 1999 ANSD 2030. VOICED UNDERSTANDING. DENIES ANY OTHER NEEDS.
[2019-07-31 20:00] VITALS: BP 111/72
[2019-08-01 03:31] LABS: CREATININE - URINE 45.5 mg/dL (30-125); PROTEIN - URINE 109.9 mg/dL (0.0-11.9)
[2019-08-01 04:00] VITALS: BP 105/74
[2019-08-01 04:07] LABS: CREATININE - SERUM 0.9 mg/dL (0.6-1.3)
[2019-08-01 06:15] LABS: BASOPHILS 0.2 % (0-2); EOSINOPHILS 2.1 % (0-7); HEMATOCRIT 33.6 % (36.0-48.0); HEMOGLOBIN 9.9 g/dL (12-16); IMMATURE GRANULOCYTES 1.1 % (0-5); LYMPHOCYTES 40.3 % (15-50); MCH 26.6 pg (26.0-34.0); MCHC 29.5 g/dL (31.0-37.0); MCV 90.3 fL (80.0-100.0); MEAN PLATELET VOLUME 9.3 fL (7.4-10.4); MONOCYTES 6.9 % (2-11); NEUTROPHILS 49.4 % (40-80); PLATELET COUNT 547 10x3/uL (130-400); RBC 3.72 10x6/uL (4.00-5.40); RDW 16.5 % (11.5-14.5)
[2019-08-01 06:24] LABS: WBC 10.8 10x3/uL (4.8-10.8)
[2019-08-01 06:39] LABS: CARBON DIOXIDE 27.1 mmol/L (21.0-32.0); CHLORIDE - SERUM 111 mmol/L (98-107); CREATININE - SERUM 0.8 mg/dL (0.6-1.3); SODIUM 143 mmol/L (136-145); UREA NITROGEN 24 mg/dL (7-18); eGFR NON AFRICAN AMERICAN 88 mL/min (90-120)
[2019-08-01 06:41] LABS: CALC OSMOLALITY 286 mosm/kg (275-300); GLUCOSE 60 mg/dL (74-106); POTASSIUM - SERUM 4.8 mmol/L (3.5-5.1)
--- NOTE | 2019-08-01 08:34 | NUR ---
BEDSIDE SHIFT REPORT COMPLETE. PATIENT IS ALERT AND ORIENTED. SHE IS SITTING UP IN BED EATTING BREAKFAST. BRINGING HER PRN PAIN MEDICATION WITH MORNING MEDICATIONS. BLOOD SUGAR IS CONTROLLED.
[2019-08-01 09:47] VITALS: BP 116/85
--- NOTE | 2019-08-01 09:55 | NUR ---
PATIENT IS UP WALKING AROUND .
--- NOTE | 2019-08-01 10:25 | NUR ---
PATIENT IS BACK IN BED FROM HER WALK. SHE IS EATTING SUGAR FREE ICECREAM AND REQUEST MORE PAIN MEDICATION. I AM GOING TO SEE IF WE CAN FOLLOW PROTOCOL TO REMOVE THE ALMONTE CATHETER.
--- NOTE | 2019-08-01 11:40 | NUR ---
REMOVING ALMONTE CATHETER FOLLOWING NURSES PROTOCOL. PATIENT CAN GET UP AND MOVE AROUND FINE. SHE DOES HAVE A SORE ON HER COCCYX, HOWEVER, SHE IS SO ABLE BODIED THE ALMONTE WAS SAFE TO DISCONTINUE. REMOVED 8ML OF STERILE WATER FROM THE BALLOON BEFORE REMOVAL.
[2019-08-01 13:04] VITALS: BP 173/100
--- NOTE | 2019-08-01 14:20 | NUR ---
Nutrition Follow-up: Eating well. COMMUNITY CASE MANAGER reports pt pocketing food on L side; put on mech soft with chopped meats and thin liquids. Noted I/Os (-4824 cc on 07/28, -3394 cc on 07/30). Diet: Diabetic, Mech Soft with Chopped Meats and Thin Liquids PO intake: 100% Wt: 131# (07/30); 143.3# (07/28) Last BM: 08/01 per chart Labs noted: Glu 60, Ca 8.0 Meds noted: Lantus, Humulin, NS @ 30 -Continue current diet as tolerated with consistencies per ST. -Need new wt; noted daily wts ordered. -RD following.
[2019-08-01 16:26] VITALS: BP 109/69
--- NOTE | 2019-08-01 19:45 | NUR ---
EVENING ROUNDS COMPLETED. VSS, AAOX4, COLONOSTOMY BAG INTACT/DRAINING. HELP EMPTIED 300CC'S AT THIS TIME. PT REQUESTED FOR ICE CREAME, EDUCTATE PT ABOUT ELEVATED BLOOD GUGAR. PT VERBALIZED UNDERSTANDING. 1 STEP OVERLAY MATTRESS INPLACE. BILAT LOWER EXT DRESSING C/D/I. WILL PERFORM DRSNG CHANGE. PT DENIES ANY FURTHER NEEDS AT THIS TIME. WILL CTM. CL WITHIN REACH.
[2019-08-01 20:00] VITALS: BP 104/62
--- NOTE | 2019-08-01 20:27 | NUR ---
OLD DRESSING TO BILAT LOWER EXTREMITY REMOVED. VARIOUS STAGES OF HEALING SCABS AND SORES NOTED. PT DENIES PAIN. WOUND CARE PERFORMED PER PROVIDERS ORDER. PT TOLERATE WELL. FSBS 265, INSULIN GIVEN PER SLIDING SCALE. PT DENIES ANY FURTHER NEEDS AT THIS TIME. GERRI BAH.
[2019-08-02] VITALS: BP 115/74
[2019-08-02 04:00] VITALS: BP 107/61
--- NOTE | 2019-08-02 04:27 | NUR ---
REPLACED PT COLONOSCOPY BAG. COCCYX DRSNG CHANGED PER PROVIDERS ORDER. PO PAIN MEDS ADMINISTERED FOR GENERALIZED PAIN OF 10/10. PT DENIES ANY FURTHER NEEDS AT THIS TIME. WILL CPOC.
[2019-08-02 05:42] LABS: BASOPHILS 0.1 % (0-2); EOSINOPHILS 3.2 % (0-7); HEMOGLOBIN 9.7 g/dL (12-16); IMMATURE GRANULOCYTES 1.4 % (0-5); LYMPHOCYTES 36.9 % (15-50); MCH 26.7 pg (26.0-34.0); MCHC 29.4 g/dL (31.0-37.0); MCV 90.9 fL (80.0-100.0); MEAN PLATELET VOLUME 9.2 fL (7.4-10.4); MONOCYTES 6.3 % (2-11); NEUTROPHILS 52.1 % (40-80); PLATELET COUNT 551 10x3/uL (130-400); RBC 3.63 10x6/uL (4.00-5.40); RDW 16.7 % (11.5-14.5); WBC 9.1 10x3/uL (4.8-10.8)
[2019-08-02 06:03] LABS: ANION GAP 12.5 mmol/L (8-16); CALCIUM 7.7 mg/dL (8.5-10.1); CARBON DIOXIDE 21.2 mmol/L (21.0-32.0); MAGNESIUM - SERUM 1.9 mg/dL (1.8-2.4); POTASSIUM - SERUM 4.7 mmol/L (3.5-5.1)
[2019-08-02 06:04] LABS: CREATININE - SERUM 1.1 mg/dL (0.6-1.3)
[2019-08-02 09:18] VITALS: BP 128/85
[2019-08-02 12:12] VITALS: BP 113/76
--- NOTE | 2019-08-02 12:47 | NUR ---
REPORT OFF TO KIRK ESCOBEDO TO RESUME PLAN OF CARE.
--- NOTE | 2019-08-02 13:50 | NUR ---
PT RESTING COMFORTABLY IN BED, DENIES ANY NEEDS AT THIS TIME. CALL LIGHT IN REACH, NAD NOTED,W ILL CONTINUE TO MONITOR.
[2019-08-02 16:19] VITALS: BP 127/59
--- NOTE | 2019-08-02 19:32 | NUR ---
EVENING ROUNDS COMPLETED. VSS, AAOX4, NO S/S DISTRESS. DRESSING TO BILAT L/EXT AND COCCYX APPEARS C/D/I. RIGHT MIDDLE FINGER MISSING. IV SL @ THIS TIME. PT STATES SHE WANTS A BED BED TODAY. STRATEGIC PROCUREMENT MANAGER NOTIFIED. COLOSTOMY BAG INTACT. PT DENIES ANY FURTHER NEEDS AT THIS TIME. WILL CPOC. CL WITHIN REACH, BED IN LOW, ONE STEP OVERLAY INTACT. WILL CPOC.
[2019-08-02 20:30] VITALS: BP 114/76
[2019-08-03 00:30] VITALS: BP 121/72
[2019-08-03 04:30] VITALS: BP 115/82
[2019-08-03 05:41] LABS: BASOPHILS 0.2 % (0-2); EOSINOPHILS 4.5 % (0-7); HEMATOCRIT 34.1 % (36.0-48.0); HEMOGLOBIN 10.2 g/dL (12-16); IMMATURE GRANULOCYTES 1.2 % (0-5); LYMPHOCYTES 31.8 % (15-50); MCH 26.8 pg (26.0-34.0); MCHC 29.9 g/dL (31.0-37.0); MCV 89.7 fL (80.0-100.0); MEAN PLATELET VOLUME 9.3 fL (7.4-10.4); MONOCYTES 5.5 % (2-11); NEUTROPHILS 56.8 % (40-80); PLATELET COUNT 533 10x3/uL (130-400); RDW 16.6 % (11.5-14.5); WBC 10.7 10x3/uL (4.8-10.8)
[2019-08-03 06:05] LABS: ANION GAP 10.8 mmol/L (8-16); CALCIUM 8.2 mg/dL (8.5-10.1); CARBON DIOXIDE 25.3 mmol/L (21.0-32.0); MAGNESIUM - SERUM 2.1 mg/dL (1.8-2.4); POTASSIUM - SERUM 5.1 mmol/L (3.5-5.1)
--- NOTE | 2019-08-03 07:24 | NUR ---
REPORT RECEIVED. WILL CONTINUE WITH POC. PT CURRENTLY LYING SEMI FOWLERS. CALL LIGHT W/I REACH. PT IS AAO AND UP AD YAIMA. RR EVEN AND UNLABORED ON RA. L.FOR PIV SALINE LOCKED. FIRST STEP OVERLAY IN PLACE. NO S/S OF DISTRESS NOTED. PT DENIES ANY NEEDS. WILL CTM.
[2019-08-03 07:46] VITALS: BP 111/72
[2019-08-03 11:45] VITALS: BP 102/77
--- NOTE | 2019-08-03 12:05 | NUR ---
I have reviewed this patient and I concur with the Shift Assessment completed by the Licensed Practical Nurse today this shift.
--- NOTE | 2019-08-03 16:16 | NUR ---
UPON ADMIT, PATIENT HAS NOT HAD A FLU SHOT. WHEN QUESTIONED FOR DISCHARGE, SHE SAID SHE WILL TALK WITH MUKUND BETANCOURT APN.
--- NOTE | 2019-08-03 17:30 | NUR ---
DRESSINGS CHANGED TO BILAT LOWER LEGS PER WOUND CARE ORDERS. DATED AND INITIALED. PT SIGNED PROPER DISCHARGE PAPERWORK AND REMOVED ALL VALUABLES FROM THE ROOM. PIV REMOVED WITH CATHETER TIP FULLY INTACT. PT DISCHARGED HOME VIA WHEELCHAIR WITH FAMILY.
--- NOTE | 2019-08-03 19:16 | NUR ---
PT CALLED THE FLOOR AFTER BEING DISCHARGED ASKING ABOUT DISCHARGE MEDICATIONS. NOTIFIED HER OF THE CONTINUED HOME MEDICATIONS THAT WERE SIGNED BY . TOLD THE PT THAT I WOULD CALL [facility] TO VERIFY WHICH MEDS WERE CONTINUED BASED OFF OF HER HOME MED REQ AND THE DISCHARGE INSTRUCTIONS. CALLED [facility] WHO HAD NOT BEEN NOTIFIED OF THESE MEDICATIONS. ATTEMPTED TO CALL PT BACK TO INSTRUCT HER TO CALL PCP IN AM BUT WAS UNSUCCESSFUL IN CONTACTING HER. WILL NOTIFY SECURITY INCIDENT RESPONSE ENGINEER IN AM.
--- NOTE | 2019-08-04 09:01 | MORECARE ---
CASE MANAGEMENT DISCHARGE SUMMARY PATIENT: SOFIA FONTENOT UNIT: [id number] ADM DATE: 07/17/19 AGE: 34 : 89 SEX: F ROOM/BED: D.6403 AUTHOR: TRINITY,DOC PHYSICIAN: REFERRING PHYSICIAN: LYNN VO MD DATE OF SERVICE: 08/04/19 Discharge Plan Patient Name: SOFIA FONTENOT Facility: [facility]:[place] : 1985 Planned Disposition: Home or Self Care Anticipated Discharge Date: 08/03/19 Discharge Date: 08/03/2019 Expected LOS: 17 Initial Reviewer: [email or web address] Initial Review Date: 07/17/2019 Generated: 08/04/19 10:00 am DCP- Discharge Planning Updated by [email or web address]: Fern Middleton on 07/27/19 8:[address] Late Entry 07/27/19 @ [address]/PT eval d/t physicians and nursing discussing intubation currently. CM will continue to follow and assist as needed with discharge planning / needs. DCP- Discharge Planning Updated by [email or web address]: Ally Cantor on 07/19/19 9:[address] Patient Name: SOFIA FONTENOT Admission Status: ER Accout number: [id number] Admission Date: 07-17-2019 : 1985 Admission Diagnosis: Attending: MICHAEL Current LOS: 2 Anticipated DC Date: Planned Disposition: Home or Self Care Primary Insurance: MEDICAID [place] Discharge Planning Comments: CM met with patient to complete initial dc planning assessment. CM educated patient on the CM role and verbal consent given by patient to complete assessment. Patient lives with her friend, Cyndi. At discharge patient plans to return to her home with her friend and feels this is a safe discharge. She stated that her mother helps her with medicine and bathing. She does not have a PCP. She is disabled, receives 500.00 per month. She did have food stamps, but needs to go back to the [facility] office and apply again for them, She knows where to go. She does not use any other community resources. Her mom or her friend Cyndi help her when needed. CM discussed availability of home health, rehab services, and medical equipment. She has a walker, BSC, and Ostomy supplies that she gets from [facility]. She stated that she has running water, electricity and food in the home. She does not feel like she is in danger and feels safe returning back home with Cyndi. Patient denied known discharge needs at this time. CM will continue to follow and will assist as needed with dc plans/needs. Poker In: Ally Cantor DCPIA - Discharge Planning Initial Assessment Updated by [email or web address]: Ally Cantor on 07/19/19 10:09 am * Is the patient Alert and Oriented? Yes * How many steps to enter\exit or inside your home? * Pharmacy [facility] * Preadmission Environment Home with Family * ADLs Partial Dependent * Partial ADLs (Assistance needed) Ambulation Bathing Medication Management * Equipment Bedside Commode Glucometer Ostomy Supplies Rolling Walker * List name and contact numbers for known caregivers / representatives who currently or will assist patient after discharge: ABAD (MOTHER) [phone] CYNDI (FRIEND) * Verbal permission to speak to the caregivers and representatives has been obtained from the patient. N/A * Community resources currently utilized None * Additional services required to return to the preadmission environment? Yes * Has this patient been hospitalized within the prior 30 days at any hospital? No Coverage Notice Reviewer: [id number] - Ally Cantor Notice Issued Date-Time: 07/19/2019 8:50 Notice Type: Patient Choice Letter Notice Delivered To: Patient Relationship to Patient: Stick Inserter Name: Delivery Method: HAND - Hand Delivered Debbie Days: Prior Verbal Notification: Recipient Understood Notice: Yes Recipient Signature: Yes Med Rec Note Co-signed by Attending: Coverage Notice Comment: anthony for DME [employer] ostomy supplies Last DP export: 07/27/19 8:43 p Patient Name: SOFIA FONTENOT Page [id number] at 0901 All edits/amendments must be made on the electronic document DICTATION DATE: 08/04/19 09 CLAM SHUCKING MACHINE TENDER: MARISSA 08/04/19 09 RPT#: [id number] DC DATE:08/03/19 STATUS: DIS IN [facility] [address] [place] [address] END OF REPORT
== END 2019-08-03 17:31 | disposition home or self-care (01) | DRG 622 ==
LOC: D.ER 18:54 → D.ICU 19:33 → D.M2 19:33 → D.MS 19:33 → D.ICU 07-26 15:55 → D.M2 07-30 15:27
PROVIDERS: Family Medicine; Internal Medicine Nephrology; ADMIT Family Medicine; ATTEND Family Medicine
PROC: 0JBR0ZZ Excision of Left Foot Subcutaneous Tissue and Fascia, Open Approach (ICD-10-PCS; principal; 2019-07-20)
DX: E10.621 Type 1 diabetes mellitus with foot ulcer (principal); E43 Unspecified severe protein-calorie malnutrition; J18.9 Pneumonia, unspecified organism; L89.154 Pressure ulcer of sacral region, stage 4; J96.01 Acute respiratory failure with hypoxia; L03.90 Cellulitis, unspecified; E87.1 Hypo-osmolality and hyponatremia; F17.203 Nicotine dependence unspecified, with withdrawal; Z68.1 Body mass index [BMI] 19.9 or less, adult; N39.0 Urinary tract infection, site not specified; L97.529 Non-pressure chronic ulcer of other part of left foot with unspecified severity; Z93.3 Colostomy status; F14.10 Cocaine abuse, uncomplicated; T23.222A Burn of second degree of single left finger (nail) except thumb, initial encounter; D50.9 Iron deficiency anemia, unspecified; R62.7 Adult failure to thrive; E10.22 Type 1 diabetes mellitus with diabetic chronic kidney disease; E10.65 Type 1 diabetes mellitus with hyperglycemia; N18.3 Chronic kidney disease, stage 3 (moderate); E10.51 Type 1 diabetes mellitus with diabetic peripheral angiopathy without gangrene